=== PATIENT | female | born 1990 | race Caucasian/White ===

== ENCOUNTER 2020-11-09 16:10 | Inpatient (IN) ==
[2020-11-09] MEDS ORDERED: LORazepam 1 MG TAB PO STA (16:26)
--- NOTE | 2020-11-09 16:36 | Emergency Department Note ---
Impression & Plan Depression with suicidal ideation, Alcohol intoxication ED Provider Note NAME: ZEYAD CALLAWAY AGE: 30 SEX: F : 1990 ARRIVES VIA: Walk-In INFORMANT: Patient, ED PROVIDER(S): Keanu Andres DO CHIEF COMPLAINT: Anxiety HPI: The patient is a 30-year-old female who presented to the emergency department for mental health evaluation. The patient describes episodes of anxiety that she has been feeling over the course the last few weeks. She denies having any nausea or vomiting. She has had no cough or difficulty breathing. She states that she has had depression as well as suicidal ideation but is very vague about any specific plan. She denies having any recent overdose attempts. The patient states that she has been seen by her psychiatrist twice and most recently was started on propanolol for her anxiety. She states that otherwise she has been compliant with all of her outpatient medications. She states she has been admitted to the psychiatric hospital in the past for the symptoms but it was when she lived in [place]. She states that she has been picking at her skin especially on her lower legs and has been having significant difficulty sleeping. She states her symptoms are moderate to severe at this time. ROS: See above HPI for pertinent positives & negatives. A total of 10 systems reviewed and were otherwise negative. PAST MEDICAL HISTORY: See Below PAST SURGICAL HISTORY: See Below FAMILY HISTORY: See Below SOCIAL HISTORY: See Below HOME MEDICATIONS: See Below ALLERGIES: See Below VITALS: See Below PHYSICAL EXAMINATION: GENERAL: The patient is awake and alert. She is somewhat anxious appearing. She is tearful. EYES: The conjunctivae are clear. The pupils are round and reactive. EARS, NOSE, MOUTH AND THROAT: The nose is without any evidence of any deformity. NECK: The neck is nontender and supple. RESPIRATORY: Normal respiratory effort is noted there is no evidence of wheezing rhonchi or rales CARDIOVASCULAR: Tachycardic rate with regular rhythm was noted. There was no definite murmur. GASTROINTESTINAL: The abdomen is soft. Abdomen is nontender. MUSCULOSKELETAL/EXTREMITIES: There is no evidence of gross deformity full range of motion is noted in the hips and shoulders. SKIN: There is no obvious evidence of any rash. There are excoriations over the lower extremities consistent with skin picking. No signs of cellulitis or infection were noted. NEUROLOGIC: Patient is awake alert and oriented x3 strength is symmetric patellar reflexes are 2+ bilaterally PSYCH: The patient is awake and alert. She makes good eye contact for most the evaluation. She appears somewhat anxious and guarded. The patient is tearful at times. She admitting to suicidal ideation but no plan at this time. MEDICAL DECISION MAKING: The patient is a 30-year-old female who presented to the emergency department for a mental health evaluation. The patient was having significant anxiety as well as depression with suicidal ideation. The patient was reevaluated multiple times. She was unable to be medically cleared at this time because of a very elevated alcohol level. She was resting comfortably on reevaluation. She was treated with Ativan in the emergency department for anxiety. She will require formal mental health reevaluation when she is clinically not intoxicated. Otherwise the patient was medically cleared. The patient was signed out to Dr. Michelle change of shift. Please see her note for further disposition and overnight care. Triage Nursing notes reviewed. Prior medical records reviewed Vital Signs: reviewed and remarkable for tachycardia Differential diagnosis: Mood disorder, infection, hypoglycemia, electrolyte abnormalities, cardiac sources, intracerebral event, toxicologic, trauma, neurologic, as well as other pathologies. ER treatment provided: See below Diagnostics interpreted by me: ECG: none Laboratory studies: As stated above and show below. Imaging studies: See below Consultation(s): none Past Med/Surg History Medical History Acid reflux occasional Anxiety Asthma controlled Endometriosis Fibromyalgia Obesity Surgical History Abscess of pelvis s/p surgical drainage History of appendectomy History of cholecystectomy History of colonoscopy History of endometrial ablation History of esophagogastroduodenoscopy (EGD) Hx of laparoscopy x3 (for endometriosis) Hx of removal of ovary Hx of tonsillectomy [place] teeth extracted Family History Mother Narcolepsy Crohn's disease Hypertension Gallbladder disease Father Diabetes Anxiety Hypertension Family history of reaction to anesthesia SLOW TO WAKE UP/PONV Brother Anxiety Sister Anxiety Grandmother (Paternal) Breast cancer Aunt Breast cancer Grandfather (Maternal) Stroke Grandfather (Paternal) Heart disease Denies family history of Ovarian cancer Prostate cancer Lung cancer Colorectal cancer Social History Smoking Status: Never smoker Second Hand Exposure: Yes (MOTHER SMOKES/SISTER SMOKES OUTSIDE); Hx Alcohol Use: Yes Alcohol type: hard liquor Hx Substance Use: No Preferred Language: Mauritian Communication Ability: Effective Visual Impairment: Limited Hearing Ability: Normal Lining Layer Required: No Beliefs That Will Affect Care: None marital status: Single Current Living Situation: Family Current Living Situation Comment: SISTER AND KENDRICK current occupational status: unemployed Feels Safe at Home: Yes Childhood Exposure to Second-Hand Smoke: No caffeine: No Dental Care, Regularly: Yes Physical Activity Frequency: Does not Exercise Seatbelt Use: always Sunscreen Use: Yes Assistive Devices: None Allergies Allergies Allergy/AdvReac Type Severity Reaction Status Date / Time NSAIDS (Non-Steroidal Allergy hives, Verified 08/25/20 07:21 Anti-Inflamma swelling Home Meds Home Medications Medication Instructions Recorded Confirmed cyclobenzaprine 10 mg PO PRN 11/09/20 propranolol 10 mg PO TID 11/09/20 11/09/20 Results & Data (ED) Vital Signs Vital Signs - 24 hr 11/09/20 16:13 11/09/20 17:57 11/09/20 19:06 Temperature 36.7 C Temperature Source Temporal Artery Scan Pulse Rate 117 H Pulse Rate [Finger] 78 120 H Respiratory Rate 16 16 20 Respiratory Effort / Characteristics Non-Labored Spontaneous Respiratory Depth Normal Blood Pressure 133/89 Blood Pressure [Right Arm] 144/82 H 113/74 Blood Pressure Mean 103 Blood Pressure Mean [Right Arm] 102 87 Pulse Oximetry 96 96 99 Oxygen Delivery Method Room Air Sepsis Recent Fever Within 48 Hours No Sepsis New/Unexplained Change in Mental Status No Sepsis Action Taken by Nursing No Action Required 11/09/20 21:18 Temperature Temperature Source Pulse Rate Pulse Rate [Finger] 132 H Respiratory Rate 18 Respiratory Effort / Characteristics Respiratory Depth Blood Pressure Blood Pressure [Right Arm] 131/82 Blood Pressure Mean Blood Pressure Mean [Right Arm] 98 Pulse Oximetry 98 Oxygen Delivery Method Room Air Sepsis Recent Fever Within 48 Hours Sepsis New/Unexplained Change in Mental Status Sepsis Action Taken by [facility] Medications Current Medication List: was personally reviewed by me Laboratory Data Attestation: I reviewed the patient's lab results. Result diagrams: 11/09/20 16:55 11/09/20 16:55 Lab Results 11/09/20 11/09/20 11/09/20 Range/Units 16:55 16:55 16:55 WBC 8.46 (4.8-10.8) K/uL RBC 4.87 (4.2-5.4) M/uL Hgb 15.4 (12.0-16.0) g/dL Hct 43.4 (37-47) % MCV 89.1 (80-100) fL MCH 31.6 (25-34) pg MCHC 35.5 (32-36) g/dL RDW Std Deviation 42.5 (36.4-46.3) fL RDW Coeff of Piotr 13.0 (11.5-14.5) % Plt Count 382 (130-400) K/uL MPV 10.1 (7.4-10.4) fL Immature Gran % (Auto) 0.5 % Neut % (Auto) 34.8 % Lymph % (Auto) 55.6 % Delta % (Auto) 6.5 % Eos % (Auto) 1.7 % Baso % (Auto) 0.9 % Neut # (Auto) 2.95 (1.4-6.5) K/uL Lymph # (Auto) 4.70 H (1.2-3.4) K/uL Delta # (Auto) 0.55 (0.11-0.59) K/uL Eos # (Auto) 0.14 (0-0.5) K/uL Baso # (Auto) 0.08 (0-0.2) K/uL Immature Gran # (Auto) 0.04 H (0.00-0.02) K/uL Sodium 143 (136-145) mmol/L Potassium 3.6 (3.5-5.1) mmol/L Chloride 109 H (98-107) mmol/L Carbon Dioxide 26 (21-32) mmol/L Anion Gap 8.0 (3-11) BUN 4 L (7-18) mg/dl Creatinine 0.73 (0.6-1.2) mg/dl Est Cr Clr Drug Dosing 115.7 ml/min Est GFR ( Amer) 127.2 Est GFR (Non-Af Amer) 109.7 BUN/Creatinine Ratio 5.9 L (10-20) Glucose 106 H (70-99) mg/dl Calcium 9.2 (8.5-10.1) mg/dl Total Bilirubin 0.4 (0.2-1) mg/dl AST 314 H (15-37) U/L ALT 188 H (12-78) U/L Alkaline Phosphatase 114 (45-117) U/L Total Protein 8.3 H (6.4-8.2) gm/dl Albumin 4.2 (3.4-5.0) gm/dl Globulin 4.1 H (2.5-4.0) gm/dl Albumin/Globulin Ratio 1.0 (0.9-2) TSH 0.877 (0.300-4.500) uIu/ml Urine Color Urine Appearance (Clear) Urine pH (4.5-7.5) Ur Specific [place] (1.000-1.030) Urine Protein (Negative) Urine Glucose (UA) (Negative) Urine Ketones (Negative) Urine Blood (Negative) Urine Nitrite (Negative) Urine Bilirubin (Negative) Urine Urobilinogen (Negative) Ur Leukocyte Esterase (Negative) Urine RBC (0-4) /hpf Urine WBC (0-5) /hpf Ur Epithelial Cells (0-5) /lpf Urine Bacteria (Negative) Salicylates < 1.7 L (2.8-20) mg/dl Urine Opiates Screen (Neg) Ur Methadone, Qual (Neg) Acetaminophen < 2 L (10-30) ug/ml Urine Barbiturates (Neg) Ur Phencyclidine (PCP) (Neg) U Amphetamin/Meth Scrn (Neg) MDMA (Ecstasy) Screen (Neg) U Benzodiazepines Scrn (Neg) Ur Cocaine Metabolite (Neg) U Marijuana (THC) Screen (Neg) Ethyl Alcohol mg/dL (0-3) mg/dl 11/09/20 11/09/20 11/09/20 Range/Units 16:55 18:00 18:00 WBC (4.8-10.8) K/uL RBC (4.2-5.4) M/uL Hgb (12.0-16.0) g/dL Hct (37-47) % MCV (80-100) fL MCH (25-34) pg MCHC (32-36) g/dL RDW Std Deviation (36.4-46.3) fL RDW Coeff of Piotr (11.5-14.5) % Plt Count (130-400) K/uL MPV (7.4-10.4) fL Immature Gran % (Auto) % Neut % (Auto) % Lymph % (Auto) % Delta % (Auto) % Eos % (Auto) % Baso % (Auto) % Neut # (Auto) (1.4-6.5) K/uL Lymph # (Auto) (1.2-3.4) K/uL Delta # (Auto) (0.11-0.59) K/uL Eos # (Auto) (0-0.5) K/uL Baso # (Auto) (0-0.2) K/uL Immature Gran # (Auto) (0.00-0.02) K/uL Sodium (136-145) mmol/L Potassium (3.5-5.1) mmol/L Chloride (98-107) mmol/L Carbon Dioxide (21-32) mmol/L Anion Gap (3-11) BUN (7-18) mg/dl Creatinine (0.6-1.2) mg/dl Est Cr Clr Drug Dosing ml/min Est GFR ( Amer) Est GFR (Non-Af Amer) BUN/Creatinine Ratio (10-20) Glucose (70-99) mg/dl Calcium (8.5-10.1) mg/dl Total Bilirubin (0.2-1) mg/dl AST (15-37) U/L ALT (12-78) U/L Alkaline Phosphatase (45-117) U/L Total Protein (6.4-8.2) gm/dl Albumin (3.4-5.0) gm/dl Globulin (2.5-4.0) gm/dl Albumin/Globulin Ratio (0.9-2) TSH (0.300-4.500) uIu/ml Urine Color Yellow Urine Appearance Cloudy A (Clear) Urine pH 6.5 (4.5-7.5) Ur Specific [place] 1.008 (1.000-1.030) Urine Protein Negative (Negative) Urine Glucose (UA) Negative (Negative) Urine Ketones Negative (Negative) Urine Blood Negative (Negative) Urine Nitrite Negative (Negative) Urine Bilirubin Negative (Negative) Urine Urobilinogen Negative (Negative) Ur Leukocyte Esterase Negative (Negative) Urine RBC 0-4 (0-4) /hpf Urine WBC 10-30 H (0-5) /hpf Ur Epithelial Cells 20-30 H (0-5) /lpf Urine Bacteria 2+ H (Negative) Salicylates (2.8-20) mg/dl Urine Opiates Screen Neg (Neg) Ur Methadone, Qual Neg (Neg) Acetaminophen (10-30) ug/ml Urine Barbiturates Neg (Neg) Ur Phencyclidine (PCP) Neg (Neg) U Amphetamin/Meth Scrn Pos H (Neg) MDMA (Ecstasy) Screen Neg (Neg) U Benzodiazepines Scrn Neg (Neg) Ur Cocaine Metabolite Neg (Neg) U Marijuana (THC) Screen Neg (Neg) Ethyl Alcohol mg/dL 324.0 H (0-3) mg/dl Administered Medications Discontinued Medications Lorazepam (Lorazepam 1 Mg Tab) 1 mg PO NOW STA Stop: 11/09/20 16:27 Last Admin: 11/09/20 16:39 Dose: 1 mg Documented by: [id number] Discharge Plan Visit Data Chief Complaint: Mental Health Evaluation Stated Complaint: MENTAL HEALTH EVAL ED Provider: Keanu Andres Discharge Problem: Depression with suicidal ideation, Alcohol intoxication Patient Disposition: Still a Patient Forms Stand Alone Forms: [facility], Suicide Prevention Resources Prescriptions Prescriptions: No Action cyclobenzaprine 10 mg tablet 10 mg PO PRN (Reason: Pain) RF: 0 propranolol 10 mg tablet 10 mg PO TID RF: 0 Referrals Referrals: Darvin Rubin MD [Primary Care Provider] - Discharge Problem: Alcohol intoxication Qualifiers: Complication of substance-induced condition: with unspecified complication Qualified Code(s): F10.929 - Alcohol use, unspecified with intoxication, unspecified
[2020-11-09 17:08] LABS: Hematocrit (blood only) 43.4 % (37-47); Hemoglobin 15.4 g/dL (12.0-16.0); Mean Corpuscular Hemoglobin 31.6 pg (25-34); Mean Corpuscular Hgb Conc 35.5 g/dL (32-36); Mean Corpuscular Volume 89.1 fL (80-100); Mean Platelet Volume 10.1 fL (7.4-10.4); Platelet Count 382 K/uL (130-400); RDW Standard Deviation 42.5 fL (36.4-46.3); Red Blood Count 4.87 M/uL (4.2-5.4); White Blood Count 8.46 K/uL (4.8-10.8)
[2020-11-09 17:25] LABS: Albumin Level 4.2 gm/dl (3.4-5.0); BUN Creatinine Ratio 5.9 (10-20); Calcium 9.2 mg/dl (8.5-10.1); Creatinine Clr Calc Pharmacy 115.7 ml/min; Est GFR (African American) 127.2; Est GFR (Non-African American) 109.7; Potassium 3.6 mmol/L (3.5-5.1)
[2020-11-09 17:35] LABS: Basophils # (auto) 0.08 K/uL (0-0.2); Basophils % (auto) 0.9 %; Eosinophils # (auto) 0.14 K/uL (0-0.5); Eosinophils % (auto) 1.7 %; Immature Granulocytes # (auto) 0.04 K/uL (0.00-0.02); Immature Granulocytes % (auto) 0.5 %; Lymphocytes % (auto) 55.6 %; Monocytes # (auto) 0.55 K/uL (0.11-0.59); Monocytes % (auto) 6.5 %; Neutrophils # (auto) 2.95 K/uL (1.4-6.5); Neutrophils % (auto) 34.8 %
[2020-11-09 17:36] LABS: Bilirubin,Total 0.4 mg/dl (0.2-1); Globulin 4.1 gm/dl (2.5-4.0); Thyroid Stimulating Hormone 0.877 uIu/ml (0.300-4.500); Total Protein 8.3 gm/dl (6.4-8.2)
[2020-11-09 17:38] LABS: Acetaminophen < 2 ug/ml (10-30); Salicylate < 1.7 mg/dl (2.8-20)
[2020-11-09 18:36] LABS: Appearance Urine Cloudy (Clear); Bilirubin Urine Negative (Negative); Blood Urine Negative (Negative); Color Urine Yellow; Glucose Urine UA Negative (Negative); Ketones Urine Negative (Negative); Leukocyte Esterase Urine Negative (Negative); Nitrite Urine Negative (Negative); Protein Urine Negative (Negative); Specific Gravity Urine 1.008 (1.000-1.030); Urobilinogen Urine Negative (Negative); pH Urine 6.5 (4.5-7.5)
[2020-11-09 18:44] LABS: Amphetamines+Metham, Urine Pos (Neg); Barbiturates, Urine Neg (Neg); Benzodiazepine, Urine Neg (Neg); Cocaine, Urine Neg (Neg); MDMA (Ecstacy), Urine Neg (Neg); Methadone, Urine Neg (Neg); Opiate, Urine Neg (Neg); Phencyclidine, Urine Neg (Neg)
[2020-11-09 18:56] LABS: Epithelial Cell Urine 20-30 /lpf (0-5)
[2020-11-09 18:58] LABS: Bacteria Urine 2+ (Negative); RBC Urine 0-4 /hpf (0-4)
--- NOTE | 2020-11-09 23:51 | Emergency Department Note ---
ED Visit Note This case was signed out to me at change of shift awaiting sobriety. The patient was evaluated by the ED psychiatric outpatient case manager. She is willing to admit herself voluntarily for inpatient psychiatric care. A Covid swab was obtained. The patient will be evaluated by staff from [facility] The case will be signed out to Dr. Guaman at change of shift awaiting disposition . : Alcohol intoxication Qualifiers: Complication of substance-induced condition: with unspecified complication Qualified Code(s): F10.929 - Alcohol use, unspecified with intoxication, unspecified
--- NOTE | 2020-11-10 10:07 | Emergency Department Note ---
ED Visit Note Patient was signed out to me medically cleared. Resting comfortably in the ER and was admitted shortly thereafter to [address] . : Alcohol intoxication Qualifiers: Complication of substance-induced condition: with unspecified complication Qualified Code(s): F10.929 - Alcohol use, unspecified with intoxication, unspecified
[2020-11-10] MEDS ORDERED: hydrOXYzine HCl 25 MG TAB PO PRN (16:26)
[2020-11-10] MEDS ORDERED: SODIUM CHLORIDE 0.65% NA SOLN 45 ML (OCEAN) PRN (16:26)
[2020-11-10] MEDS ORDERED: ACETAMINOPHEN 325 MG TAB PO PRN (16:26)
[2020-11-10] MEDS ORDERED: ALUMINUM/MAGNESIUM SUSP 30 ML UDC PO PRN (16:26)
[2020-11-10] MEDS ORDERED: MAGNESIUM HYDROXIDE SUSP 30 ML UDC PO PRN (16:26)
[2020-11-10] MEDS: hydrOXYzine HCl 25 MG TAB PO PRN (16:38)
[2020-11-10] MEDS ORDERED: OLANZAPINE 2.5 MG TAB PO ONE (17:00)
[2020-11-10] MEDS ORDERED: LORazepam 1 MG TAB PO PRN (17:01)
--- NOTE | 2020-11-10 17:48 | History & Physical ---
Date of Service November 10, 2020 Impression / Recommendations Impression This 30-year-old woman was admitted following evaluation in the emergency department for depression, anxiety, and mounting thoughts of suicide. Although the patient reports a long history of symptoms of depression and anxiety, dating back to her teenage years, her symptoms were exacerbated after she underwent a total abdominal hysterectomy in August 2020 advanced endometriosis and bilateral ovarian cysts. Her report is that she was not placed on hormone replacement for the first 2 months following surgery and, within this context, she noticed increased emotional lability, mood irritability, worsening d epression, panic episodes, and worst of all for the patient, mounting anxiety with substantial difficulty regulating her mood and coping with even routine stressors. Unfortunately, the patient has been using alcohol consumption as a way of attempting to manage her anxiety, although she freely notes that she is aware that his not effective and is "definitely not the right thing to do." She seems somewhat reluctant to identify her use quantity apart from saying that she typically drinks to the point of satiety, and admits that her use may include "4 or 5" drinks in the evenings, approximately 2, but may be 3 times a week, when she is not responsible for helping to care for her infant niece. The patient notes that she has never been a "daily drinker," but does feel that her use of alcohol has contributed to her current problems. She reports there is no other history of drug/alcohol misuse. She reports a family history of mood disorders and, specifically, reports that both her brother and her sister have been diagnosed with bipolar disorderalthough, at least, the brothers diagnosis occurs within a cooccurring history of mood altering chemical substance abuse. She reports that there is no history of trauma and indicates that she is eager to move back to [place] in order to be close to her family (siblings and her parents all of whom live locally.) Additional factors that may complicate the treatment of this patient is the fact that she reports that she has tried to "just about every" selective serotonin reuptake inhibitor, and also reports that she has had a trial of Effexorwhich she spontaneously correctly identifies as an SNRIwithout benefit and, with significant adverse effects. Her outpatient psychiatrist has tried to help with the patient's anxiety by prescribing propranolol. The patient reports that she has a variable history of Zyprexa, but her outpatient psychiatrist, Dr. Narvaez, has indicated that she would prefer to try other medications first because of her concern about metabolic syndrome associated with olanzapine, within the context of the patient's body index and recent total hysterectomy. As best I can tell, the patient's primary complaint has been and remains a persistent difficulty regulating her mood and modulating emotional reactivity under stress. A perhaps telling example that the patient gives is that she can "work [herself] up into a frenzy" when she is in the process of doing routine things, such as attempting to place a carry out order over the phone or schedule a routine appointment. Because the patient's symptoms of depression reportedly include initial, intermittent and terminal insomnia, and because she has not tried mirtazapine, the plan is for the patient to begin mirtazapine 15 mg at bedtime (both for depression and sleep). Material risks of mirtazapine, including but not limited to weight gain, have been reviewed with the patient. She indicates understanding and says that for her it is more important that she improved psychiatrically. We are also beginning olanzapine 2.5 mg twice a day standing dose, and will titrate as indicated. Material risks, including but not limited to metabolic syndrome, have been reviewed with the patient. She indicates understanding and reports that she has a past history of taking olanzapine without adverse effects. Because of the patient's history of panic, lorazepam has been ordered 1 mg every 6 hours as needed panic. This medication should not be used for routine anxiety and, instead, is intended purely for panic and only for short-term use. (1) Depression with suicidal ideation: 11/10/2020. -The patient has been admitted to the [facility] inpatient psychiatric unit. She has been referred to and is being actively encouraged to participate in individual, group, recreational, and as appropriate, family therapy. -The patient is being closely monitored on suicide precautions. -There will be an emphasis on helping the patient develop her individual coping strategies and improving her relaxation techniques. -We will begin mirtazapine 15 mg at bedtime for depression and for sleep. This medication may be titrated as indicated. Material risks and anticipated benefits of mirtazapine were reviewed with the patient, she has several questions and indicated understanding. -We will also begin olanzapine 2.5 mg twice a day and titrate this medication as indicated. Patient reports that she has a favorable history of responding to olanzapine, although she cannot recall the previous dose. Material risks, including but not limited to a detailed description of metabolic syndrome, were reviewed with the patient. The patient notes that she has previously been made aware of the side effects of olanzapine and feels comfortable taking it, despite the known risks. -Patient notes that she feels that her biggest problem has been regulating her mood. She does not meet criteria for efra or hypomania, despite a family history of bipolar disorder. Instead, her mood alterations within the context of recurrent depression seem to be related to difficulty coping with stressors and situational problems. For that reason, we have offered the patient a trial of lamotrigine and will begin at 25 mg a day, starting tomorrow. Material risks and anticipated benefits of lamotrigine have been reviewed with the patient and she has indicated understanding. The patient will be monitored for the development of a rash and is aware of the potential for Saldana-Filippo syndrome. Present on Admission?: Yes (2) Anxiety: 11/10/2020. -The patient describes a long history of generalized anxiety. In fact, she says that she feels that her anxiety is contributing to her depression, rather than the other way around. She tells us that she cannot feel generally anxious, even if not feeling depressed and indicates, therefore, that anxiety in her case is independent of depression, although anxious distress certainly is part of her depression. -We will begin olanzapine 2.5 mg twice a day both for mood stabilization and for anxiety management. Olanzapine may also have some antidepressant effects in this case, at least based on the patient's reported past history. Present on Admission?: Yes (3) Alcohol abuse: 11/10/2020. -The patient freely acknowledges that her use of alcohol has been excessive and she also admits that she has attempted to use alcohol as a way of managing her anxiety. She does have insight into the fact that alcohol has actually made her anxiety depression worse over time, although she is aware of a temporary relief of anxiety when she is drinking. The patient explains, "then it is worse the next day, and I swear and when to not have any more alcohol, but then a few days later I will get very nervous and start drinking again." -There is no history of alcohol withdrawal, and the patient's reported history is that she drinks to the point of intoxication approximately twice or may be as many as 3 times a week, but does not drink at other times. We are monitoring her, but I do not expect alcohol withdrawal symptoms. -Alcohol abuse counseling will be part of the patient's current treatment. -The patient has been advised that with her psychiatric medications it is essential that she maintain abstinence from alcohol and other drugs of abuse. Present on Admission?: Yes Inventory Assets Strengths: Intelligent. Supportive family. Motivated to recovery. Needs: Improved mood with improved mood regulation.. Resolution of suicidality. Risk Factors Assessment Recurrent mood disorder. Alcohol abuse. Suicidal ruminations. Male: No : Yes Do You Have Access To A Gun?: No Health Problems: Yes Mental Health Diagnoses: Yes Substance Use Disorders: Yes Previous Attempt: No Family History of Suicide: No Previous Psychiatric Hospitalization: Yes Hopelessness: No Smoker: No Protective Factors Assessment Mu-Ism Beliefs: No (Patient reports that she was raised as a Adventist, but is not currently re) : No Responsible for Young Children: Yes Employed: Yes ([employer]) Stable Relationships: Yes Supportive Family: Yes Good Rapport with Provider: Yes Absence of Any Risk Factors Above: No Psychiatric History Identifying Data ZEYAD CALLAWAY is a 30-year-old F who currently lives in in [place], [place] with her sister and her infant niece. The patient has a history of recurrent major depression, generalized anxiety, and panic disorder without agoraphobia. She was admitted on 11/10/20 09:59 on a 201 voluntary agreement for worsening depression and intrusive suicidal and progressively worsening i deations Chief Complaint "Anxiety and depression". History of Present Illness The patient is a 30-year-old female who presented to the emergency department on the day of admission for a mental health evaluation. The patient's report is that she has a long history of depression, dating back to her teenage years as well as a history of a psychiatric hospitalization for depression approximately 2 years ago in the [facility]. In August 2020 the patient underwent a total abdominal hysterectomy at the age of 30 for what she describes as advanced endometriosis as well as bilateral and highly painful ovarian cysts. Subsequent to the hysterectomy, the patient was not placed on any hormone replacements for roughly 2 months and notes that she is currently working with a sheet metal worker helper to stabilize her hormone levels through hormone replacements. Within this context, the patient has noted increased anxiety, worsening feelings of depression, periodic panic attacks, and increased difficulty regulating her mood, even when under but many people would consider to be mild stressorsjust s uch as simply attempting to place a food order at a restaurant. The patient symptoms of depression include depressed mood, crying spells, initial and intermittent insomnia with water resource consultant awakening, anhedonia, apathy, anergia, anxious distress, poor concentration, emotional lability, and intrusive thoughts of suicide that, for the past several weeks, have been worsening. She acknowledges that she has had thoughts of taking an overdose, but, at the same time, feels that she can reliably contract for safety in the hospital. The patient notes that her panic attacks are unrelated to agoraphobia, and can occur at any time, but are more likely to occur when she is feeling under stress or time constraints. Symptoms of panic in this patient reportedly include feelings of impending doom, hyperventilation, tachycardia, chest tightness, and paresthesias (fingers primarily). The patient reports that she feels that her anxiety symptoms are perhaps the dominant symptom that, in her estimation, may be substantially contributing to her depression, rather than the other way around. She is seeing a Dr. Hidalgo on an outpatient basis, and Dr. Narvaez has prescribed propranolol for her anxiety. The patient says that she feels that the propranolol has been of little benefit to her. She has tried and failed several selective serotonin reuptake inhibitors as well as at least 1 norepinephrine reuptake inhibitor because she is not able to tolerate the side effects, and, further, she reports that she has had genetic testing that indicates that she is perhaps more prone to difficulty with tolerating various antidepressant medications. The patient reports that she has never tried Viibryd, bupropion ("Wellbutrin"), Pristiq, or mirtazapine. She has tried hydroxyzine for anxiety and for panic, and notes that this "helps a little" but "does not help much." Complicating the clinical picture is the fact that the patient works at a [employer] and acknowledges that she has been using alcohol in an attempt to manage her anxiety. She has difficulty estimating her alcohol use quantity, and instead says that she typically drinks to the point of intoxication, but limits her use of alcohol to no more than 2 or 3 times a week. She has no history of alcohol withdrawal. She also reports that she does not use any other drug of abuse, apart from alcohol. The patient mentions that in the past it has been suggested that she might suffer from a somewhat atypical form of bipolar disorder. She notes that her brother and her sister both carry diagnoses of bipolar disorder, although at least her brothers diagnosis occurs within the context of a cooccurring history of substance abuse. She does not seem to have discrete episodes consistent with a diagnosis of a manic or hypomanic episode. Instead, she indicates that she typically is "reactive" to situations and circumstances, and may become happy and contented under certain circumstances, and depressed or highly distressed under other circumstances. Past Psychiatric History Previous Psych History: The patient reports that her symptoms of depression began during adolescence and have occurred intermittently throughout her adult life. As noted below, she has a history of 1 previous psychiatric hospitalization because of risk of suicide and depression. This hospitalization occurred approximately 2 years ago in [facility] where she was living at the time. She does not recall the name of the hospital. After returning to [place], she has been followed psychiatrically by Dr. Narvaez. The patient notes that she has been tried on multiple SSRIs and at least one SNRI, and describes her drug trial history is consisting of "trying just about every SSRI you can think of." She indicates that she has not been able to tolerate SSRIs nor has she been able to tolerate SNRIs, and, in addition, neither seem to have been effective. She does report, however, a favorable response to Zyprexa in the past, although she cannot recall the dose. She has not taken atypical antidepressant medication such as mirtazapine or bupropion. Buspirone has been tried and has not been effective, according to the patient. Current Psychiatric Diagnosis: bipolar Outpatient Services: See above Previous Psych Admissions: 1 previous admission. See above Do You Have Access To A Gun?: No History of Previous Suicide Attempt: No Past Medication Trials: Multiple SSRIs and at least one SNRI. Favorable response to Zyprexa in the past. See above. Past Head Trauma/Neuro History History of Concussion/Seizure: No Allergies Allergy/AdvReac Type Severity Reaction Status Date / Time NSAIDS (Non-Steroidal Allergy hives, Verified 08/25/20 07:21 Anti-Inflamma swelling Home Medications Medication Instructions Recorded Confirmed Type cyclobenzaprine 10 mg PO PRN 11/09/20 History propranolol 10 mg PO TID 11/09/20 11/09/20 History Family History Family History of: Alcoholism/Drug Abuse (Brother) and Bipolar (Brother and sister) Family Mental Health History Comment: No family history of suicide attempts. Alcohol History Hx of Alcohol Use Over the Past 12 Months: Yes (reports drinking 2 or 3 times a week.) AUDIT Total Score: 8 Smoking Use Have You Smoked or Used Tobacco Products in the Last 30 Days: No Smoking Status: Never smoker Substance History Hx of Prescription Med Misuse Over the Past 12 Months: No Hx of Over the Counter Med Misuse Over the Past 12 Months: No Hx of Inhalent Misuse Over the Past 12 Months: No Hx of Organic Substance Use Over the Past 12 Months: No Hx of Illegal Substances/Street Drug Use Over Past 12 Months: No Problems as a Result of Past Substance Use: None Identified Personal History Living Arrangements: Home Living Arrangements Comments: The patient lives with her sister and infant niece. In addition to working full-time, the patient assist in the care of her infant niece. Born In: [facility]. Raised by both parents. Highest Grade Completed: Some College Highest Grade Completed Comment: Patient has completed 3 years of college and has is a goal returning to college in order to receive her bachelor's degree. 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 (The patient assures us that she does not consume alcohol while caring for her niece.)) Marital Status: Single Number Of Children: 0 Beliefs That Will Affect Care: None Current Legal Problems: No Hx Legal Problems: No Hx Traumatic Life Events: No Patient History Medical History Acid reflux occasional Anxiety Asthma controlled Endometriosis Fibromyalgia Obesity Surgical History Abscess of pelvis s/p surgical drainage History of appendectomy History of cholecystectomy History of colonoscopy History of endometrial ablation History of esophagogastroduodenoscopy (EGD) Hx of laparoscopy x3 (for endometriosis) Hx of removal of ovary Hx of tonsillectomy [place] teeth extracted Family History Mother Narcolepsy Crohn's disease Hypertension Gallbladder disease Father Diabetes Anxiety Hypertension Family history of reaction to anesthesia SLOW TO WAKE UP/PONV Brother Anxiety Sister Anxiety Grandmother (Paternal) Breast cancer Aunt Breast cancer Grandfather (Maternal) Stroke Grandfather (Paternal) Heart disease Denies family history of Ovarian cancer Prostate cancer Lung cancer Colorectal cancer Social History Smoking Status: Never smoker Second Hand Exposure: Yes (MOTHER SMOKES/SISTER SMOKES OUTSIDE); Hx Alcohol Use: Yes Alcohol type: hard liquor Hx Substance Use: No Preferred Language: Turkish Communication Ability: Effective Visual Impairment: Limited Hearing Ability: Normal Clinical Fellow Required: No Beliefs That Will Affect Care: None marital status: Single Current Living Situation: Family Current Living Situation Comment: SISTER RUBEN MARKS current occupational status: unemployed Feels Safe at Home: Yes Childhood Exposure to Second-Hand Smoke: No caffeine: No Dental Care, Regularly: Yes Physical Activity Frequency: Does not Exercise Seatbelt Use: always Sunscreen Use: Yes Assistive Devices: None Review of Systems Review of Systems: All systems reviewed & are unremarkable except as noted in HPI & below The admission physical examination and review of systems is completed by Keanu Andres DO of the emergency department has been reviewed and is excepted for purposes of medical clearance to the inpatient psychiatric unit. As part of the psychiatric assessment, at least 10 systems were reviewed with the patient. She does note a past history of asthma (as indicated by the emergency room review of systems), but the patient says that she has not had any asthma difficulties in a number of years and although at one time she had a rescue inhaler, she has not required any form of treatment for asthma for a number of years. Patient also complains of a history of fibromyalgia and uses cyclobenzaprine as an effective treatment. Physical Exam Psychiatric: Orientation: alert, oriented x 3 and cooperative Apperance: appropriately dressed, appropriately groomed and appeared stated age Eye Contact: + fair eye contact Motor Behavior: + tremor Speech: normal rate/rhythm/volume of speech Affect: + depressed affect and + anxious affect Mood: + depressed mood and + anxious mood Thought Process: goal directed thought process Thought Content: reality based without delusions Suicidal Thoughts: + reports suicidal thoughts Patient reports intrusive, persistent and worsening thoughts of suicide. These thoughts include taking an overdose. She contracts for safety convincingly in the hospital and reports that her primary goal is recovery. Homicidal Thoughts: denies homicidal thoughts Hallucinations: no auditory hallucinations and no visual hallucinations Cognition: recent memory grossly intact, remote memory grossly intact, attention grossly intact and language grossly intact Estimated Intelligence: + above average estimated intelligence Insight: good insight Judgement: + fair judgement Vital Signs (Past 24 Hours): Last Vital Signs Temp 36.7 C 11/10/20 11:46 Pulse 95 H 11/10/20 11:46 Resp 18 11/10/20 11:46 BP 135/82 11/10/20 11:46 Pulse Ox 99 11/10/20 10:19 Results & Data ([facility]) Laboratory Results Laboratory Results - last 24 hr 11/09/20 11/09/20 11/09/20 16:55 16:55 16:55 WBC 8.46 RBC 4.87 Hgb 15.4 Hct 43.4 MCV 89.1 MCH 31.6 MCHC 35.5 RDW Std Deviation 42.5 RDW Coeff of Piotr 13.0 Plt Count 382 MPV 10.1 Immature Gran % (Auto) 0.5 Neut % (Auto) 34.8 Lymph % (Auto) 55.6 [place] % (Auto) 6.5 Eos % (Auto) 1.7 Baso % (Auto) 0.9 Neut # (Auto) 2.95 Lymph # (Auto) 4.70 H [place] # (Auto) 0.55 Eos # (Auto) 0.14 Baso # (Auto) 0.08 Immature Gran # (Auto) 0.04 H Sodium 143 Potassium 3.6 Chloride 109 H Carbon Dioxide 26 Anion Gap 8.0 BUN 4 L Creatinine 0.73 Est Cr Clr Drug Dosing 115.7 Est GFR ( Amer) 127.2 Est GFR (Non-Af Amer) 109.7 BUN/Creatinine Ratio 5.9 L Glucose 106 H Calcium 9.2 Total Bilirubin 0.4 AST 314 H ALT 188 H Alkaline Phosphatase 114 Total Protein 8.3 H Albumin 4.2 Globulin 4.1 H Albumin/Globulin Ratio 1.0 TSH 0.877 Urine Color Urine Appearance Urine pH Ur Specific [place] Urine Protein Urine Glucose (UA) Urine Ketones Urine Blood Urine Nitrite Urine Bilirubin Urine Urobilinogen Ur Leukocyte Esterase Urine RBC Urine WBC Ur Epithelial Cells Urine Bacteria Salicylates < 1.7 L Urine Opiates Screen Ur Methadone, Qual Acetaminophen < 2 L Urine Barbiturates Ur Phencyclidine (PCP) U Amphetamines Confirm U Amphetamin/Meth Scrn U Methamphetamin Confrm MDMA (Ecstasy) Screen U Benzodiazepines Scrn Ur Cocaine Metabolite U Marijuana (THC) Screen Drug Screen Comment Ethyl Alcohol mg/dL COVID-19 Eval Order SARS-CoV-2, RNA, NAAT 11/09/20 11/09/20 11/09/20 16:55 18:00 18:00 WBC RBC Hgb Hct MCV MCH MCHC RDW Std Deviation RDW Coeff of Piotr Plt Count MPV Immature Gran % (Auto) Neut % (Auto) Lymph % (Auto) [place] % (Auto) Eos % (Auto) Baso % (Auto) Neut # (Auto) Lymph # (Auto) [place] # (Auto) Eos # (Auto) Baso # (Auto) Immature Gran # (Auto) Sodium Potassium Chloride Carbon Dioxide Anion Gap BUN Creatinine Est Cr Clr Drug Dosing Est GFR ( Amer) Est GFR (Non-Af Amer) BUN/Creatinine Ratio Glucose Calcium Total Bilirubin AST ALT Alkaline Phosphatase Total Protein Albumin Globulin Albumin/Globulin Ratio TSH Urine Color Yellow Urine Appearance Cloudy A Urine pH 6.5 Ur Specific [place] 1.008 Urine Protein Negative Urine Glucose (UA) Negative Urine Ketones Negative Urine Blood Negative Urine Nitrite Negative Urine Bilirubin Negative Urine Urobilinogen Negative Ur Leukocyte Esterase Negative Urine RBC 0-4 Urine WBC 10-30 H Ur Epithelial Cells 20-30 H Urine Bacteria 2+ H Salicylates Urine Opiates Screen Neg Ur Methadone, Qual Neg Acetaminophen Urine Barbiturates Neg Ur Phencyclidine (PCP) Neg U Amphetamines Confirm U Amphetamin/Meth Scrn Pos H U Methamphetamin Confrm MDMA (Ecstasy) Screen Neg U Benzodiazepines Scrn Neg Ur Cocaine Metabolite Neg U Marijuana (THC) Screen Neg Drug Screen Comment Ethyl Alcohol mg/dL 324.0 H COVID-19 Eval Order SARS-CoV-2, RNA, NAAT 11/09/20 11/10/20 11/10/20 18:00 06:00 06:00 WBC RBC Hgb Hct MCV MCH MCHC RDW Std Deviation RDW Coeff of Piotr Plt Count MPV Immature Gran % (Auto) Neut % (Auto) Lymph % (Auto) [place] % (Auto) Eos % (Auto) Baso % (Auto) Neut # (Auto) Lymph # (Auto) [place] # (Auto) Eos # (Auto) Baso # (Auto) Immature Gran # (Auto) Sodium Potassium Chloride Carbon Dioxide Anion Gap BUN Creatinine Est Cr Clr Drug Dosing Est GFR ( Amer) Est GFR (Non-Af Amer) BUN/Creatinine Ratio Glucose Calcium Total Bilirubin AST ALT Alkaline Phosphatase Total Protein Albumin Globulin Albumin/Globulin Ratio TSH Urine Color Urine Appearance Urine pH Ur Specific [place] Urine Protein Urine Glucose (UA) Urine Ketones Urine Blood Urine Nitrite Urine Bilirubin Urine Urobilinogen Ur Leukocyte Esterase Urine RBC Urine WBC Ur Epithelial Cells Urine Bacteria Salicylates Urine Opiates Screen Ur Methadone, Qual Acetaminophen Urine Barbiturates Ur Phencyclidine (PCP) U Amphetamines Confirm Pending U Amphetamin/Meth Scrn U Methamphetamin Confrm Pending MDMA (Ecstasy) Screen U Benzodiazepines Scrn Ur Cocaine Metabolite U Marijuana (THC) Screen Drug Screen Comment Pending Ethyl Alcohol mg/dL COVID-19 Eval [facility] SARS-CoV-2, RNA, NAAT NEGATIVE Current Inpatient Medications Current Inpatient Medications: Current Inpatient Medications Acetaminophen (Acetaminophen 325 Mg Tab) 650 mg PO Q4H PRN PRN Reason: Headache or Minor Fever Stop: 12/10/20 16:25 Al Hydrox/Mg Hydrox/Simethicone (Aluminum/Magnesium Susp 30 Ml Udc) 30 ml PO Q4H PRN PRN Reason: GI Upset Stop: 12/10/20 16:25 Hydroxyzine HCl (Hydroxyzine Hcl 25 Mg Tab) 50 mg PO HSZ PRN PRN Reason: Insomnia Stop: 12/10/20 16:25 Hydroxyzine HCl (Hydroxyzine Hcl 25 Mg Tab) 25 mg PO Q4H PRN PRN Reason: Anxiety Stop: 12/10/20 16:25 Last Admin: 11/10/20 16:38 Dose: 25 mg Documented by: Lorazepam (Lorazepam 1 Mg Tab) 1 mg PO Q6H PRN PRN Reason: Panic Attacl Stop: 12/10/20 17:00 Magnesium Hydroxide (Magnesium Hydroxide Susp 30 Ml Udc) 30 ml PO DAILY PRN PRN Reason: Constipation Stop: 12/10/20 16:25 Mirtazapine (Mirtazapine Tab 15 Mg Tab) 15 mg PO HS NAE Stop: 12/10/20 21:59 Olanzapine (Olanzapine 2.5 Mg Tab) 2.5 mg PO BID NAE Stop: 12/10/20 20:59 Olanzapine (Olanzapine 2.5 Mg Tab) 2.5 mg PO NOW ONE Stop: 11/10/20 17:01 Sodium Chloride (Sodium Chloride 0.65% Na Soln 45 Ml ([place])) 1 - 2 sprays NA PRN PRN PRN Reason: Nasal Dryness/Congestion Stop: 12/10/20 16:25
[2020-11-10] MEDS: OLANZAPINE 2.5 MG TAB PO SCH (20:53)
[2020-11-10] MEDS: MIRTAZAPINE TAB 15 MG TAB PO SCH (20:53)
--- NOTE | 2020-11-11 08:04 | Psychiatric Progress Note ---
Date of Service November 11, 2020 Impression / Recommendations Impression This 30-year-old woman admitted voluntarily for alcohol abuse, depression, anxiety, and thoughts of suicide. Although the patient reports a long history of symptoms of depression and anxiety, dating back to her teenage years, her symptoms were exacerbated after she underwent a total abdominal hysterectomy in August 2020 due to endometriosis and bilateral ovarian cysts. Her report is that she was not placed on hormone replacement for the first 2 months following surgery and, within this context, she noticed increased emotional lability, mood irritability, worsening depression, panic episodes, and worst of all for the patient, mounting anxiety with substantial difficulty regulating her mood and coping with even routine stressors. She increased her alcohol intake as a way to manage anxiety, drinking to intoxication 2-3 times a week. She has failed numerous antidepressant trials, but on admission agreed to trials of mirtazapine for depression and sleep, lamotrigine for mood stabilization, and olanzapine as she reported it was beneficial in the past. She is agreeing to a family meeting with her sister, and referral for outpatient dual diagnosis therapy. Inpatient treatment remains medically necessary due to the severity of symptoms and risk for suicide if discharged prematurely. (1) Depression with suicidal ideation: 11/10/2020. -The patient has been admitted to the [facility] inpatient psychiatric unit. She has been referred to and is being actively encouraged to participate in individual, group, recreational, and as appropriate, family therapy. -The patient is being closely monitored on suicide precautions. -There will be an emphasis on helping the patient develop her individual coping strategies and improving her relaxation techniques. -We will begin mirtazapine 15 mg at bedtime for depression and for sleep. This medication may be titrated as indicated. Material risks and anticipated benefits of mirtazapine were reviewed with the patient, she has several questions and indicated understanding. -We will also begin olanzapine 2.5 mg twice a day and titrate this medication as indicated. Patient reports that she has a favorable history of responding to olanzapine, although she cannot recall the previous dose. Material risks, including but not limited to a detailed description of metabolic syndrome, were reviewed with the patient. The patient notes that she has previously been made aware of the side effects of olanzapine and feels comfortable taking it, despite the known risks. -Patient notes that she feels that her biggest problem has been regulating her mood. She does not meet criteria for efra or hypomania, despite a family history of bipolar disorder. Instead, her mood alterations within the context of recurrent depression seem to be related to difficulty coping with stressors and situational problems. For that reason, we have offered the patient a trial of lamotrigine and will begin at 25 mg a day, starting tomorrow. Material risks and anticipated benefits of lamotrigine have been reviewed with the patient and she has indicated understanding. The patient will be monitored for the development of a rash and is aware of the potential for Saldana-Filippo syndrome. 11/11 -continue medications started on admission, monitor for response/side effects. Order fasting labs for monitoring on an atypical antipsychotic. -Continue group attendance and participation, work on healthy coping skills and discharge safety plan. Family meeting with sister. Referred to [facility] for dual diagnosis therapy. (2) Anxiety: 11/10/2020. -The patient describes a long history of generalized anxiety. In fact, she says that she feels that her anxiety is contributing to her depression, rather than the other way around. She tells us that she cannot feel generally anxious, even if not feeling depressed and indicates, therefore, that anxiety in her case is independent of depression, although anxious distress certainly is part of her depression. -We will begin olanzapine 2.5 mg twice a day both for mood stabilization and for anxiety management. Olanzapine may also have some antidepressant effects in this case, at least based on the patient's reported past history. 11/11 -continue to work on behavioral techniques for managing anxiety. She has hydroxyzine and lorazepam as needed for panic. (3) Alcohol abuse: 11/10/2020. -The patient freely acknowledges that her use of alcohol has been excessive and she also admits that she has attempted to use alcohol as a way of managing her anxiety. She does have insight into the fact that alcohol has actually made her anxiety depression worse over time, although she is aware of a temporary relief of anxiety when she is drinking. The patient explains, "then it is worse the next day, and I swear and when to not have any more alcohol, but then a few days later I will get very nervous and start drinking again." -There is no history of alcohol withdrawal, and the patient's reported history is that she drinks to the point of intoxication approximately twice or may be as many as 3 times a week, but does not drink at other times. We are monitoring her, but I do not expect alcohol withdrawal symptoms. -Alcohol abuse counseling will be part of the patient's current treatment. -The patient has been advised that with her psychiatric medications it is essential that she maintain abstinence from alcohol and other drugs of abuse. Inventory Assets Strengths: Intelligent. Supportive family. Motivated to recovery. Needs: Improved mood with improved mood regulation. Resolution of suicidality. Risk Factors Assessment Male: No : Yes Do You Have Access To A Gun?: No Health Problems: Yes Mental Health Diagnoses: Yes Substance Use Disorders: Yes Previous Attempt: No Family History of Suicide: No Previous Psychiatric Hospitalization: Yes Hopelessness: No Smoker: No Protective Factors Assessment Catholic Beliefs: No (Patient reports that she was raised as a [employer], but is not currently re) : No Responsible for Young Children: Yes Employed: Yes ([employer]) Stable Relationships: Yes Supportive Family: Yes Good Rapport with Provider: Yes Absence of Any Risk Factors Above: No Interval History Identifying Information ZEYAD CALLAWAY is a 30-year-old F who currently lives in in [place], [place] with her sister and her niece. The patient has a history of recurrent major depression, generalized anxiety, and panic disorder without agoraphobia. She was admitted on 11/10/20 09:59 on a 201 voluntary agreement for worsening depression and intrusive suicidal and progressively worsening ideations. Chief Complaint "I still feel pretty anxious". Review of Systems Sleep Information Total Hours of Sleep: 9.75 Sleep Comments: pt appeared to sleep 2.75 hrs during evening shift. pt on q-15 minute checks Meal Information Percent Meal Consumed - Dinner: 100 Subjective Subjective Patient was seen & assessed and interval progress reviewed with nursing and social work. Staff report she attended and participated in groups. On my assessment, she reports she slept well last night and mood is improved, but she still feels "pretty anxious." She is tolerating medications well, started several new medications yesterday. She denies SI and feels safe here. She is y[place]asta ling for a meeting with her sister and referral for dual diagnosis therapy. Physical Exam Psychiatric Orientation: alert and cooperative Apperance: appropriately dressed, appropriately groomed and appeared stated age scrub pants, tie dye tshirt, long hair wet from shower Eye Contact: + fair eye contact Motor Behavior: steady gait and station and no abnormal motor movements Speech: normal rate/rhythm/volume of speech Affect: + anxious affect, + constricted affect and mood congruent with affect Mood: + anxious mood Thought Process: goal directed thought process Thought Content: reality based without delusions Suicidal Thoughts: denies suicidal thoughts Homicidal Thoughts: denies homicidal thoughts Hallucinations: no auditory hallucinations Cognition: recent memory grossly intact, attention grossly intact and language grossly intact Insight: + fair insight Judgement: + fair judgement Vital Signs (Past 24 Hours) Last Vital Signs Temp 36.5 C 11/11/20 06:49 Pulse 87 11/11/20 06:50 Resp 16 11/11/20 06:49 BP 123/89 11/11/20 06:50 Pulse Ox 99 11/10/20 10:19 Results & Data ([facility]) Current Inpatient Medications Current Inpatient Medications: Current Inpatient Medications Acetaminophen (Acetaminophen 325 Mg Tab) 650 mg PO Q4H PRN PRN Reason: Headache or Minor Fever Stop: 12/10/20 16:25 Al Hydrox/Mg Hydrox/Simethicone (Aluminum/Magnesium Susp 30 Ml Udc) 30 ml PO Q4H PRN PRN Reason: GI Upset Stop: 12/10/20 16:25 Hydroxyzine HCl (Hydroxyzine Hcl 25 Mg Tab) 50 mg PO HSZ PRN PRN Reason: Insomnia Stop: 12/10/20 16:25 Hydroxyzine HCl (Hydroxyzine Hcl 25 Mg Tab) 25 mg PO Q4H PRN PRN Reason: Anxiety Stop: 12/10/20 16:25 Last Admin: 11/10/20 16:38 Dose: 25 mg Documented by: Lamotrigine (Lamotrigine 25 Mg Tab) 25 mg PO QAM NAE Stop: 12/11/20 08:59 Lorazepam (Lorazepam 1 Mg Tab) 1 mg PO Q6H PRN PRN Reason: Panic AttacK Stop: 12/10/20 17:00 Magnesium Hydroxide (Magnesium Hydroxide Susp 30 Ml Udc) 30 ml PO DAILY PRN PRN Reason: Constipation Stop: 12/10/20 16:25 Mirtazapine (Mirtazapine Tab 15 Mg Tab) 15 mg PO HS NAE Stop: 12/10/20 21:59 Last Admin: 11/10/20 20:53 Dose: 15 mg Documented by: Olanzapine (Olanzapine 2.5 Mg Tab) 2.5 mg PO BID NAE Stop: 12/10/20 20:59 Last Admin: 11/10/20 20:53 Dose: 2.5 mg Documented by: Sodium Chloride (Sodium Chloride 0.65% Na Soln 45 Ml ([place])) 1 - 2 sprays NA PRN PRN PRN Reason: Nasal Dryness/Congestion Stop: 12/10/20 16:25 Mental Health & Subst Abuse Tx Therapist Name of Therapist: Dr. Narvaez Lathe Tender Name of Lathe Tender: N/A Post Discharge Appointments Primary Care Physician Name Of Family Doctor: Dr. Rubin
[2020-11-11] MEDS: lamoTRIgine 25 MG TAB PO SCH (08:39)
[2020-11-11] MEDS: OLANZAPINE 2.5 MG TAB PO SCH ×2 (08:39→20:52)
[2020-11-11] MEDS: MIRTAZAPINE TAB 15 MG TAB PO SCH (20:53)
--- NOTE | 2020-11-12 06:57 | Psychiatric Progress Note ---
Date of Service November 12, 2020 Impression / Recommendations Impression This 30-year-old woman admitted voluntarily for alcohol abuse, depression, anxiety, and thoughts of suicide. Although the patient reports a long history of symptoms of depression and anxiety, dating back to her teenage years, her symptoms were exacerbated after she underwent a total abdominal hysterectomy in August 2020 due to endometriosis and bilateral ovarian cysts. Her report is that she was not placed on hormone replacement for the first 2 months following surgery and, within this context, she noticed increased emotional lability, mood irritability, worsening depression, panic episodes, and worst of all for the patient, mounting anxiety with substantial difficulty regulating her mood and coping with even routine stressors. She increased her alcohol intake as a way to manage anxiety, drinking to intoxication 2-3 times a week. She has failed numerous antidepressant trials, but on admission agreed to trials of mirtazapine for depression and sleep, lamotrigine for mood stabilization, and olanzapine as she reported it was beneficial in the past. She is agreeing to a family meeting with her sister, and referral for outpatient dual diagnosis therapy. Inpatient treatment remains medically necessary due to the severity of symptoms and risk for suicide if discharged prematurely. (1) Depression with suicidal ideation: 11/10/2020. -The patient has been admitted to the [facility] inpatient psychiatric unit. She has been referred to and is being actively encouraged to participate in individual, group, recreational, and as appropriate, family therapy. -The patient is being closely monitored on suicide precautions. -There will be an emphasis on helping the patient develop her individual coping strategies and improving her relaxation techniques. -We will begin mirtazapine 15 mg at bedtime for depression and for sleep. This medication may be titrated as indicated. Material risks and anticipated benefits of mirtazapine were reviewed with the patient, she has several questions and indicated understanding. -We will also begin olanzapine 2.5 mg twice a day and titrate this medication as indicated. Patient reports that she has a favorable history of responding to olanzapine, although she cannot recall the previous dose. Material risks, including but not limited to a detailed description of metabolic syndrome, were reviewed with the patient. The patient notes that she has previously been made aware of the side effects of olanzapine and feels comfortable taking it, despite the known risks. -Patient notes that she feels that her biggest problem has been regulating her mood. She does not meet criteria for efra or hypomania, despite a family history of bipolar disorder. Instead, her mood alterations within the context of recurrent depression seem to be related to difficulty coping with stressors and situational problems. For that reason, we have offered the patient a trial of lamotrigine and will begin at 25 mg a day, starting tomorrow. Material risks and anticipated benefits of lamotrigine have been reviewed with the patient and she has indicated understanding. The patient will be monitored for the development of a rash and is aware of the potential for Saldana-Filippo syndrome. 11/11 -continue medications started on admission, monitor for response/side effects. Order fasting labs for monitoring on an atypical antipsychotic. -Continue group attendance and participation, work on healthy coping skills and discharge safety plan. Family meeting with sister. Referred to [facility] for dual diagnosis therapy. 11/12 -continue current treatment plan, family meeting and referrals for outpatient treatment tomorrow. (2) Anxiety: 11/10/2020. -The patient describes a long history of generalized anxiety. In fact, she says that she feels that her anxiety is contributing to her depression, rather than the other way around. She tells us that she cannot feel generally anxious, even if not feeling depressed and indicates, therefore, that anxiety in her case is independent of depression, although anxious distress certainly is part of her depression. -We will begin olanzapine 2.5 mg twice a day both for mood stabilization and for anxiety management. Olanzapine may also have some antidepressant effects in this case, at least based on the patient's reported past history. 11/11 -continue to work on behavioral techniques for managing anxiety. She has hydroxyzine and lorazepam as needed for panic. (3) Alcohol abuse: 11/10/2020. -The patient freely acknowledges that her use of alcohol has been excessive and she also admits that she has attempted to use alcohol as a way of managing her anxiety. She does have insight into the fact that alcohol has actually made her anxiety depression worse over time, although she is aware of a temporary relief of anxiety when she is drinking. The patient explains, "then it is worse the next day, and I swear and when to not have any more alcohol, but then a few days later I will get very nervous and start drinking again." -There is no history of alcohol withdrawal, and the patient's reported history is that she drinks to the point of intoxication approximately twice or may be as many as 3 times a week, but does not drink at other times. We are monitoring her, but I do not expect alcohol withdrawal symptoms. -Alcohol abuse counseling will be part of the patient's current treatment. -The patient has been advised that with her psychiatric medications it is essential that she maintain abstinence from alcohol and other drugs of abuse. Inventory Assets Strengths: Intelligent. Supportive family. Motivated to recovery. Needs: Improved mood with improved mood regulation. Resolution of suicidality. Risk Factors Assessment Male: No : Yes Do You Have Access To A Gun?: No Health Problems: Yes Mental Health Diagnoses: Yes Substance Use Disorders: Yes Previous Attempt: No Family History of Suicide: No Previous Psychiatric Hospitalization: Yes Hopelessness: No Smoker: No Protective Factors Assessment Synagogue Beliefs: No (Patient reports that she was raised as a Anabaptism, but is not currently re) : No Responsible for Young Children: Yes Employed: Yes ([employer]) Stable Relationships: Yes Supportive Family: Yes Good Rapport with Provider: Yes Absence of Any Risk Factors Above: No Interval History Identifying Information ZEYAD CALLAWAY is a 30-year-old F who currently lives in in [place], [place] with her sister and her niece. The patient has a history of recurrent major depression, generalized anxiety, and panic disorder without agoraphobia. She was admitted on 11/10/20 09:59 on a 201 voluntary agreement for worsening depression and intrusive suicidal and progressively worsening ideations. Chief Complaint "Really tired right now". Review of Systems Sleep Information Total Hours of Sleep: 8 Sleep Comments: pt given vistaril per rn. pt on q-15 minute checks Meal Information Percent Meal Consumed - Breakfast: 75 Percent Meal Consumed - Lunch: 100 Percent Meal Consumed - Dinner: 95 Subjective Subjective Patient was seen & assessed and interval progress reviewed with nursing and social work. Staff report she has been attending and participating in groups, working on recovery protocol, and agreed to a referral to [facility]. She rated her mood a 3/10 and described it as "anxious." On my assessment, she was awoken from sleep midmorning, stating that although she slept well last night, she st ill feels very tired. She states today she was "really anxious," but anxiety was reduced this morning. Mood is "pretty good," and states anxiety has been the biggest problem for her. It is typically episodic, denies triggers, feels easily overwhelmed by it. She does think medication is helping, and is hopeful that she can be discharged after her family meeting with her sister tomorrow. She remains willing for referrals for outpatient treatment. Physical Exam Psychiatric Orientation: cooperative Awoken from sleep, appears tired Apperance: appropriately groomed Eye Contact: + fair eye contact Motor Behavior: no abnormal motor movements Speech: normal rate/rhythm/volume of speech Tired, but anxious Mood: + anxious mood Thought Process: goal directed thought process Thought Content: reality based without delusions Suicidal Thoughts: denies suicidal thoughts Homicidal Thoughts: denies homicidal thoughts Hallucinations: no auditory hallucinations Cognition: recent memory grossly intact, attention grossly intact and language grossly intact Estimated Intelligence: average estimated intelligence Insight: + fair insight Judgement: + fair judgement Vital Signs (Past 24 Hours) Last Vital Signs Temp 36.4 C L 11/12/20 06:41 Pulse 79 11/12/20 06:41 Resp 16 11/12/20 06:41 BP 123/84 11/12/20 06:41 Pulse Ox 99 11/10/20 10:19 Results & Data ([facility]) Current Inpatient Medications Current Inpatient Medications: Current Inpatient Medications Acetaminophen (Acetaminophen 325 Mg Tab) 650 mg PO Q4H PRN PRN Reason: Headache or Minor Fever Stop: 12/10/20 16:25 Al Hydrox/Mg Hydrox/Simethicone (Aluminum/Magnesium Susp 30 Ml Udc) 30 ml PO Q4H PRN PRN Reason: GI Upset Stop: 12/10/20 16:25 Hydroxyzine HCl (Hydroxyzine Hcl 25 Mg Tab) 50 mg PO HSZ PRN PRN Reason: Insomnia Stop: 12/10/20 16:25 Last Admin: 11/11/20 20:53 Dose: 50 mg Documented by: Hydroxyzine HCl (Hydroxyzine Hcl 25 Mg Tab) 25 mg PO Q4H PRN PRN Reason: Anxiety Stop: 12/10/20 16:25 Last Admin: 11/10/20 16:38 Dose: 25 mg Documented by: Lamotrigine (Lamotrigine 25 Mg Tab) 25 mg PO QAM NAE Stop: 12/11/20 08:59 Last Admin: 11/11/20 08:39 Dose: 25 mg Documented by: Lorazepam (Lorazepam 1 Mg Tab) 1 mg PO Q6H PRN PRN Reason: Panic AttacK Stop: 12/10/20 17:00 Magnesium Hydroxide (Magnesium Hydroxide Susp 30 Ml Udc) 30 ml PO DAILY PRN PRN Reason: Constipation Stop: 12/10/20 16:25 Mirtazapine (Mirtazapine Tab 15 Mg Tab) 15 mg PO HS NAE Stop: 12/10/20 21:59 Last Admin: 11/11/20 20:53 Dose: 15 mg Documented by: Olanzapine (Olanzapine 2.5 Mg Tab) 2.5 mg PO BID NAE Stop: 12/10/20 20:59 Last Admin: 11/11/20 20:52 Dose: 2.5 mg Documented by: Sodium Chloride (Sodium Chloride 0.65% Na Soln 45 Ml ([place])) 1 - 2 sprays NA PRN PRN PRN Reason: Nasal Dryness/Congestion Stop: 12/10/20 16:25 Mental Health & Subst Abuse Tx Therapist Name of Therapist: Open to getting one, will refer to [facility] Teacher Name of Theology Teacher: N/A Post Discharge Appointments Primary Care Physician Name Of Family Doctor: Dr. Ortez [facility] [place]
[2020-11-12 08:52] LABS: Glucose Fasting 106 mg/dl (70-99)
[2020-11-12] MEDS: lamoTRIgine 25 MG TAB PO SCH (08:55)
[2020-11-12] MEDS: OLANZAPINE 2.5 MG TAB PO SCH ×2 (08:55→21:36)
[2020-11-12 08:58] LABS: Chol HDL Ratio 5; Cholesterol 253 mg/dl (0-200); HDL Cholesterol 55 mg/dl; LDL Cholesterol Calculated 155 mg/dl; Triglycerides 213 mg/dl (0-150); VLDL Cholesterol 43 mg/dl
[2020-11-12] MEDS: MIRTAZAPINE TAB 15 MG TAB PO SCH (21:37)
[2020-11-12] MEDS: hydrOXYzine HCl 25 MG TAB PO PRN (21:38)
[2020-11-13 03:18] LABS: Amphetamine Urine, Confirm 1490 ng/mL (<250); Methamphetamine, Ur Confirm NEGATIVE ng/mL (<250)
[2020-11-13] MEDS: lamoTRIgine 25 MG TAB PO SCH (08:55)
[2020-11-13] MEDS: OLANZAPINE 2.5 MG TAB PO SCH (08:55)
--- NOTE | 2020-11-13 10:03 | Discharge Summary ---
Date of Service November 13, 2020 History of Present Illness The patient is a 30-year-old female who presented to the emergency department on the day of admission for a mental health evaluation. The patient's report is that she has a long history of depression, dating back to her teenage years as well as a history of a psychiatric hospitalization for depression approximately 2 years ago in the [facility]. In August 2020 the patient underwent a total abdominal hysterectomy at the age of 30 for what she describes as advanced endometriosis as well as bilateral and highly painful ovarian cysts. Subsequent to the hysterectomy, the patient was not placed on any hormone replacements for roughly 2 months and notes that she is currently working with a head baker to stabilize her hormone levels through hormone replacements. Within this context, the patient has noted increased anxiety, worsening feelings of depression, periodic panic attacks, and increased difficulty regulating her mood, even when under but many people would consider to be mild stressorsjust such as simply attempting to place a food order at a restaurant. The patient symptoms of depression include depressed mood, crying spells, initial and intermittent insomnia with job analyst awakening, anhedonia, apathy, anergia, anxious distress, poor concentration, emotional lability, and intrusive thoughts of suicide that, for the past several weeks, have been worsening. She acknowledges that she has had thoughts of taking an overdose, but, at the same time, feels that she can reliably contract for safety in the hospital. The patient notes that her panic attacks are unrelated to agoraphobia, and can occur at any time, but are more likely to occur when she is feeling under stress or time constraints. Symptoms of panic in this patient reportedly include feelings of impending doom, hyperventilation, tachycardia, chest tightness, and paresthesias (fingers primarily). The patient reports that she feels that her anxiety symptoms are perhaps the dominant symptom that, in her estimation, may be substantially contributing to her depression, rather than the other way around. She is seeing a Dr. Hidalgo on an outpatient basis, and Dr. Narvaez has prescribed propranolol for her anxiety. The patient says that she feels that the propranolol has been of little benefit to her. She has tried and failed several selective serotonin reuptake inhibitors as well as at least 1 norepinephrine reuptake inhibitor because she is not able to tolerate the side effects, and, further, she reports that she has had genetic testing that indicates that she is perhaps more prone to difficulty with tolerating various antidepressant medications. The patient reports that she has never tried Viibryd, bupropion ("Wellbutrin"), Pristiq, or mirtazapine. She has tried hydroxyzine for anxiety and for panic, and notes that this "helps a little" but "does not help much." Complicating the clinical picture is the fact that the patient works at a [employer] and acknowledges that she has been using alcohol in an attempt to manage her anxiety. She has difficulty estimating her alcohol use quantity, and instead says that she typically drinks to the point of intoxication, but limits her use of alcohol to no more than 2 or 3 times a week. She has no history of alcohol withdrawal. She also reports that she does not use any other drug of abuse, apart from alcohol. The patient mentions that in the past it has been suggested that she might suffer from a somewhat atypical form of bipolar disorder. She notes that her brother and her sister both carry diagnoses of bipolar disorder, although at least her brothers diagnosis occurs within the context of a cooccurring history of substance abuse. She does not seem to have discrete episodes consistent with a diagnosis of a manic or hypomanic episode. Instead, she indicates that she typically is "reactive" to situations and circumstances, and may become happy and contented under certain circumstances, and depressed or highly distressed under other circumstances. Physical Exam Psychiatric Orientation: alert and cooperative Apperance: appropriately dressed, appropriately groomed and appeared stated age Eye Contact: good eye contact Motor Behavior: steady gait and station and no abnormal motor movements Speech: normal rate/rhythm/volume of speech Affect: euthymic affect and mood congruent with affect Mood: no depressed mood and no anxious mood Thought Process: goal directed thought process and linear/logical thought process Thought Content: reality based without delusions Suicidal Thoughts: denies suicidal thoughts Homicidal Thoughts: denies homicidal thoughts Hallucinations: no auditory hallucinations Cognition: recent memory grossly intact, attention grossly intact and language grossly intact Estimated Intelligence: average estimated intelligence Insight: good insight Judgement: good judgement Vital Signs (Past 24 Hours) Last Vital Signs Temp 36.6 C 11/13/20 06:44 Pulse 80 11/13/20 06:45 Resp 16 11/13/20 06:44 BP 130/91 11/13/20 06:45 Pulse Ox 99 11/10/20 10:19 Principal Diagnosis Major depressive disorder, recurrent, severe without psychosis Generalized anxiety disorder Alcohol use disorder Psychiatric Data Patient was hospitalized for 3 days. On admission, propanolol was discontinued and she was started on lamotrigine, mirtazapine, and olanzapine. Mood and anxiety improved over the course of hospitalization, she was able to work on coping strategies for anxiety, participate in groups and therapy, completed her discharge safety plan. Sleep improved, and she consistently denied suicidal thoughts. She was placed on recovery protocol and reported motivation to stop drinking. She had a family meeting with the social contact worker and her sister scheduled for the day of discharge, and was referred for outpatient therapy at [facility]. Day of Discharge Assessment Patient reports mood has improved and anxiety is significantly reduced, saying she has been feeling "really relaxed," enjoying socializing with peers, as they watched several movies yesterday which she enjoyed. She is attending and participating in groups and finding them helpful, working on coping strategies for anxiety. Denies SI and safety concerns, requesting discharge today after family meeting. Reviewed her FLP and glucose, which are elevated. She would like to work on improving her diet as notes it is not good. Father has h/o diabetes, but she is unsure if HLD runs in her family. She would like to continue the olanzapine for now as feels it is the most helpful medication to calm her down acutely, while titrating the lamotrigine, with a plan to take it for a few months and then taper off once more stable. We again reviewed the risks and side effects with this medication, including weight gain and metabolic syndrome. She expressed understanding, and stated that right now she feels it is more important for her to stabilize psychiatrically. She asked about her diagnoses, reviewed them and she asked about the difference between bipolar and depression, and reviewed this in detail. She reports episodes of "wanting to democrat more" with increased drinking, and racing thoughts which are constant and due to anxiety, discussed that this does not meet criteria for efra or hypomania, but ongoing monitoring will be important as she attains sobriety. Discharge safety plan is scheduled with her sister for this afternoon, after which she is requesting discharge. Her mother is coming to stay with her and her sister to provide extra support. Transition of Care Transition Of Care Record: was reviewed with the patient Advance Directives Advance Directives Information Provided: Yes Advance Directives: No Mental Health Advance Directive: No Advance Directives on File: No Living Will: No Power of Offal Roller: No Advance Directives Reason:: Declines as Mental Health Visit. Risk Factors Assessment Risk factors mitigated by admission to the inpatient unit, use of medications to target mood and anxiety symptoms, education about her diagnoses and the recommended treatment, education about substance abuse and recommendations for abstinence, referral for outpatient therapy, coordination with outpatient psychiatrist, and family meeting with her sister. She is reporting improved mood and anxiety, consistently denying thoughts of harming herself or others, eating and sleeping well, and tending to ADLs independently. She is requesting discharge, and as she is no longer at acute risk of harm to herself, can be managed as an outpatient at this time. She does not endorse risk factors indicating elevated risk of harm to others. Male: No : Yes Do You Have Access To A Gun?: No Health Problems: Yes Mental Health Diagnoses: Yes Substance Use Disorders: Yes Previous Attempt: No Family History of Suicide: No Previous Psychiatric Hospitalization: Yes Hopelessness: No Smoker: No Protective Factors Assessment Advent Beliefs: No (Patient reports that she was raised as a Confucianist, but is not currently re) : No Responsible for Young Children: Yes Employed: Yes ([employer]) Stable Relationships: Yes Supportive Family: Yes Good Rapport with Provider: Yes Absence of Any Risk Factors Above: No Tobacco Cessation at Discharge Tobacco Cessation Medication Prescribed at Discharge: Not Applicable/Non-Smoker Total Time Total Time Spent: Greater Than 30 Minutes Total Time Includes: Examination of the patient, Discharge Planning and Medication Reconciliation Discharge Data Lab Results 11/09/20 11/09/20 11/09/20 16:55 16:55 16:55 WBC 8.46 RBC 4.87 Hgb 15.4 Hct 43.4 MCV 89.1 MCH 31.6 MCHC 35.5 RDW Std Deviation 42.5 RDW Coeff of Piotr 13.0 Plt Count 382 MPV 10.1 Immature Gran % (Auto) 0.5 Neut % (Auto) 34.8 Lymph % (Auto) 55.6 [place] % (Auto) 6.5 Eos % (Auto) 1.7 Baso % (Auto) 0.9 Neut # (Auto) 2.95 Lymph # (Auto) 4.70 H [place] # (Auto) 0.55 Eos # (Auto) 0.14 Baso # (Auto) 0.08 Immature Gran # (Auto) 0.04 H Sodium 143 Potassium 3.6 Chloride 109 H Carbon Dioxide 26 Anion Gap 8.0 BUN 4 L Creatinine 0.73 Est Cr Clr Drug Dosing 115.7 Est GFR ( Amer) 127.2 Est GFR (Non-Af Amer) 109.7 BUN/Creatinine Ratio 5.9 L Glucose 106 H Fasting Glucose Calcium 9.2 Total Bilirubin 0.4 AST 314 H ALT 188 H Alkaline Phosphatase 114 Total Protein 8.3 H Albumin 4.2 Globulin 4.1 H Albumin/Globulin Ratio 1.0 Triglycerides Cholesterol LDL Cholesterol, Calc VLDL Cholesterol, Calc HDL Cholesterol Cholesterol/HDL Ratio TSH 0.877 Urine Color Urine Appearance Urine pH Ur Specific [place] Urine Protein Urine Glucose (UA) Urine Ketones Urine Blood Urine Nitrite Urine Bilirubin Urine Urobilinogen Ur Leukocyte Esterase Urine RBC Urine WBC Ur Epithelial Cells Urine Bacteria Salicylates < 1.7 L Urine Opiates Screen Ur Methadone, Qual Acetaminophen < 2 L Urine Barbiturates Ur Phencyclidine (PCP) U Amphetamines Confirm U Amphetamin/Meth Scrn U Methamphetamin Confrm MDMA (Ecstasy) Screen U Benzodiazepines Scrn Ur Cocaine Metabolite U Marijuana (THC) Screen Drug Screen Comment Ethyl Alcohol mg/dL COVID-19 Eval Order SARS-CoV-2, RNA, NAAT 11/09/20 11/09/20 11/09/20 16:55 18:00 18:00 WBC RBC Hgb Hct MCV MCH MCHC RDW Std Deviation RDW Coeff of Piotr Plt Count MPV Immature Gran % (Auto) Neut % (Auto) Lymph % (Auto) [place] % (Auto) Eos % (Auto) Baso % (Auto) Neut # (Auto) Lymph # (Auto) [place] # (Auto) Eos # (Auto) Baso # (Auto) Immature Gran # (Auto) Sodium Potassium Chloride Carbon Dioxide Anion Gap BUN Creatinine Est Cr Clr Drug Dosing Est GFR ( Amer) Est GFR (Non-Af Amer) BUN/Creatinine Ratio Glucose Fasting Glucose Calcium Total Bilirubin AST ALT Alkaline Phosphatase Total Protein Albumin Globulin Albumin/Globulin Ratio Triglycerides Cholesterol LDL Cholesterol, Calc VLDL Cholesterol, Calc HDL Cholesterol Cholesterol/HDL Ratio TSH Urine Color Yellow Urine Appearance Cloudy A Urine pH 6.5 Ur Specific [place] 1.008 Urine Protein Negative Urine Glucose (UA) Negative Urine Ketones Negative Urine Blood Negative Urine Nitrite Negative Urine Bilirubin Negative Urine Urobilinogen Negative Ur Leukocyte Esterase Negative Urine RBC 0-4 Urine WBC 10-30 H Ur Epithelial Cells 20-30 H Urine Bacteria 2+ H Salicylates Urine Opiates Screen Neg Ur Methadone, Qual Neg Acetaminophen Urine Barbiturates Neg Ur Phencyclidine (PCP) Neg U Amphetamines Confirm U Amphetamin/Meth Scrn Pos H U Methamphetamin Confrm MDMA (Ecstasy) Screen Neg U Benzodiazepines Scrn Neg Ur Cocaine Metabolite Neg U Marijuana (THC) Screen Neg Drug Screen Comment Ethyl Alcohol mg/dL 324.0 H COVID-19 Eval Order SARS-CoV-2, RNA, NAAT 11/09/20 11/10/20 11/10/20 18:00 06:00 06:00 WBC RBC Hgb Hct MCV MCH MCHC RDW Std Deviation RDW Coeff of Piotr Plt Count MPV Immature Gran % (Auto) Neut % (Auto) Lymph % (Auto) [place] % (Auto) Eos % (Auto) Baso % (Auto) Neut # (Auto) Lymph # (Auto) [place] # (Auto) Eos # (Auto) Baso # (Auto) Immature Gran # (Auto) Sodium Potassium Chloride Carbon Dioxide Anion Gap BUN Creatinine Est Cr Clr Drug Dosing Est GFR ( Amer) Est GFR (Non-Af Amer) BUN/Creatinine Ratio Glucose Fasting Glucose Calcium Total Bilirubin AST ALT Alkaline Phosphatase Total Protein Albumin Globulin Albumin/Globulin Ratio Triglycerides Cholesterol LDL Cholesterol, Calc VLDL Cholesterol, Calc HDL Cholesterol Cholesterol/HDL Ratio TSH Urine Color Urine Appearance Urine pH Ur Specific [place] Urine Protein Urine Glucose (UA) Urine Ketones Urine Blood Urine Nitrite Urine Bilirubin Urine Urobilinogen Ur Leukocyte Esterase Urine RBC Urine WBC Ur Epithelial Cells Urine Bacteria Salicylates Urine Opiates Screen Ur Methadone, Qual Acetaminophen Urine Barbiturates Ur Phencyclidine (PCP) U Amphetamines Confirm 1490 H U Amphetamin/Meth Scrn U Methamphetamin Confrm NEGATIVE MDMA (Ecstasy) Screen U Benzodiazepines Scrn Ur Cocaine Metabolite U Marijuana (THC) Screen Drug Screen Comment SEE NOTE Ethyl Alcohol mg/dL COVID-19 Eval [facility] SARS-CoV-2, RNA, NAAT NEGATIVE 11/12/20 08:03 WBC RBC Hgb Hct MCV MCH MCHC RDW Std Deviation RDW Coeff of Piotr Plt Count MPV Immature Gran % (Auto) Neut % (Auto) Lymph % (Auto) [place] % (Auto) Eos % (Auto) Baso % (Auto) Neut # (Auto) Lymph # (Auto) [place] # (Auto) Eos # (Auto) Baso # (Auto) Immature Gran # (Auto) Sodium Potassium Chloride Carbon Dioxide Anion Gap BUN Creatinine Est Cr Clr Drug Dosing Est GFR ( Amer) Est GFR (Non-Af Amer) BUN/Creatinine Ratio Glucose Fasting Glucose 106 H Calcium Total Bilirubin AST ALT Alkaline Phosphatase Total Protein Albumin Globulin Albumin/Globulin Ratio Triglycerides 213 H Cholesterol 253 H LDL Cholesterol, Calc 155 VLDL Cholesterol, Calc 43 HDL Cholesterol 55 Cholesterol/HDL Ratio 5 TSH Urine Color Urine Appearance Urine pH Ur Specific [place] Urine Protein Urine Glucose (UA) Urine Ketones Urine Blood Urine Nitrite Urine Bilirubin Urine Urobilinogen Ur Leukocyte Esterase Urine RBC Urine WBC Ur Epithelial Cells Urine Bacteria Salicylates Urine Opiates Screen Ur Methadone, Qual Acetaminophen Urine Barbiturates Ur Phencyclidine (PCP) U Amphetamines Confirm U Amphetamin/Meth Scrn U Methamphetamin Confrm MDMA (Ecstasy) Screen U Benzodiazepines Scrn Ur Cocaine Metabolite U Marijuana (THC) Screen Drug Screen Comment Ethyl Alcohol mg/dL COVID-19 Eval Order SARS-CoV-2, RNA, NAAT Hospital Course (1) Depression with suicidal ideation: 11/10/2020. -The patient has been admitted to the [facility] inpatient psychiatric unit. She has been referred to and is being actively encouraged to participate in individual, group, recreational, and as appropriate, family therapy. -The patient is being closely monitored on suicide precautions. -There will be an emphasis on helping the patient develop her individual coping strategies and improving her relaxation techniques. -We will begin mirtazapine 15 mg at bedtime for depression and for sleep. This medication may be titrated as indicated. Material risks and anticipated benefits of mirtazapine were reviewed with the patient, she has several questions and indicated understanding. -We will also begin olanzapine 2.5 mg twice a day and titrate this medication as indicated. Patient reports that she has a favorable history of responding to olanzapine, although she cannot recall the previous dose. Material risks, including but not limited to a detailed description of metabolic syndrome, were reviewed with the patient. The patient notes that she has previously been made aware of the side effects of olanzapine and feels comfortable taking it, despite the known risks. -Patient notes that she feels that her biggest problem has been regulating her mood. She does not meet criteria for efra or hypomania, despite a family history of bipolar disorder. Instead, her mood alterations within the context of recurrent depression seem to be related to difficulty coping with stressors and situational problems. For that reason, we have offered the patient a trial of lamotrigine and will begin at 25 mg a day, starting tomorrow. Material risks and anticipated benefits of lamotrigine have been reviewed with the patient and she has indicated understanding. The patient will be monitored for the development of a rash and is aware of the potential for Saldana-Filippo syndrome. 11/11 -continue medications started on admission, monitor for response/side effects. Order fasting labs for monitoring on an atypical antipsychotic. -Continue group attendance and participation, work on healthy coping skills and discharge safety plan. Family meeting with sister. Referred to [facility] for dual diagnosis therapy. 11/12 -continue current treatment plan, family meeting and referrals for outpatient treatment tomorrow. (2) Anxiety: 11/10/2020. -The patient describes a long history of generalized anxiety. In fact, she says that she feels that her anxiety is contributing to her depression, rather than the other way around. She tells us that she cannot feel generally anxious, even if not feeling depressed and indicates, therefore, that anxiety in her case is independent of depression, although anxious distress certainly is part of her depression. -We will begin olanzapine 2.5 mg twice a day both for mood stabilization and for anxiety management. Olanzapine may also have some antidepressant effects in this case, at least based on the patient's reported past history. 11/11 -continue to work on behavioral techniques for managing anxiety. She has hydroxyzine and lorazepam as needed for panic. (3) Alcohol abuse: 11/10/2020. -The patient freely acknowledges that her use of alcohol has been excessive and she also admits that she has attempted to use alcohol as a way of managing her anxiety. She does have insight into the fact that alcohol has actually made her anxiety depression worse over time, although she is aware of a temporary relief of anxiety when she is drinking. The patient explains, "then it is worse the next day, and I swear and when to not have any more alcohol, but then a few days later I will get very nervous and start drinking again." -There is no history of alcohol withdrawal, and the patient's reported history is that she drinks to the point of intoxication approximately twice or may be as many as 3 times a week, but does not drink at other times. We are monitoring her, but I do not expect alcohol withdrawal symptoms. -Alcohol abuse counseling will be part of the patient's current treatment. -The patient has been advised that with her psychiatric medications it is essential that she maintain abstinence from alcohol and other drugs of abuse. Mental Health & Subst Abuse Tx Psychiatrist Name of Psychiatrist: Dr. Narvaez at [facility] Date of Appointment with Psychiatrist: 11/28/20 Time of Appointment with Psychiatrist: 8:00am Therapist Name of Therapist: Katja Mandarin Speaking Nanny Name of Mandarin Speaking Nanny: N/A Post Discharge Appointments Primary Care Physician Name Of Family Doctor: Dr. Ortez [facility] Date of Appointment with PCP: 11/20/20 Time of Appointment with PCP: 10:45am Smoking Cessation Counseling Tobacco Cessation Medication Prescribed at Discharge: Not Applicable/Non-Smoker Discharge Plan Discharge Items Patient Disposition: Home - Self-Care Reason For Visit: Depression Discharge Diagnosis: Depression, anxiety, alcohol use disorder Activity: Per Instructions section Non-emergency contact: Psychiatrist and Therapist Call non-emergency contact if: you have any medication questions and your symptoms worsen Follow-up/Referrals: Darvin Rubin MD [Primary Care Provider] - Diet: Regular Addtl Attending Provider Instructions: SPECIAL CARE INSTRUCTIONS: 1. Follow through with your scheduled aftercare appointments. If unable to keep an appointment, please call to reschedule. 2. Take your medication only as prescribed. Medication should not be changed or stopped without the approval of your doctor. In the event of worsening symptoms or concerns about side effects, contact your doctor immediately. 3. Utilize new healthy coping skills, anger management skills, and stress management skills learned during your hospitalization. Journal feelings and process them with a support person. Identify stressors or situations that may result in relapse, deterioration or inappropriate behaviors and develop a plan to deal with those issues. 4. If your coping skills are ineffective and you are in crisis, contact your outpatient providers for direction. If unable to reach your providers, please call the [facility] CRISIS LINE AT , go to the [facility] walk-in center at [address], [address], [place], or go to the closest Emergency Room. 5. Avoid alcohol and un-prescribed drugs. 6. You have been provided with the Mental Health Advance Directives Pamphlet for your review. AFTERCARE APPOINTMENTS: * Please call your insurance company prior to your scheduled appointment to confirm your aftercare providers are covered. Take your insurance information to your ap pointments. WHO TO CALL AND WHEN: Medical Emergencies: For questions or emergencies related to your hospital stay, please contact the Inpatient Behavioral Health Unit at [phone]. A protective clothing issuer is on-call 07/04 for the Behavioral Health Unit for emergencies At any time you feel your situation is an emergency, you may also call 911 immediately. Pending Studies at Discharge: No Stand-Alone Forms: [facility], Smoking Cessation Medications and DC Order Prescriptions: New lamotrigine [Lamictal] 25 mg Tablet 25 mg PO QAM Qty: 45 RF: 0 mirtazapine 15 mg Tablet 15 mg PO HS Qty: 30 RF: 0 olanzapine 2.5 mg Tablet 2.5 mg PO BID Qty: 60 RF: 0 Continued cyclobenzaprine 10 mg tablet 10 mg PO PRN (Reason: Pain) RF: 0 Discontinued propranolol 10 mg tablet 10 mg PO TID RF: 0 Discharge Orders: Discharge Order (Routine); Ordered 11/13/20 Ordered By: Inez Valdez Admission Data Admit Date/Time: 11/10/20 09:59 Attending Provider: Miles Guzman Admit Provider: Miles Guzman Primary Care Provider: Darvin Rubin Coding Level of Care Code 07598 D/C day mgmt > 30 min Diagnoses Depression with suicidal ideation F32.9; R45.851 Anxiety F41.9 Alcohol abuse F10.10
== END 2020-11-13 14:10 | disposition home or self-care (01) | DRG 885 ==
LOC: ED 16:10 → 3S 11-10 09:59

== ENCOUNTER 2022-02-16 22:37 | Inpatient (IN) ==
[2022-02-16] MEDS ORDERED: MULTI-VITAMIN INFUSION 10 ML, THIAMINE HCL 100 MG, FOLIC ACID 1 MG in SODIUM CHLORIDE 0... IV ONE (23:05)
[2022-02-16] MEDS ORDERED: LORazepam 2 MG/1 ML VIAL IV STA (23:07)
--- NOTE | 2022-02-16 23:14 | Emergency Department Note ---
History of Present Illness General Chief complaint: Detox Request Stated complaint: rehab alcohol detox, emotional Time Seen by Provider: 02/16/22 22:51 History of Present Illness This 31-year-old presents to the ER complaining of alcohol intoxication requesting detox Location: Generalized Quality: Intoxicated Severity: Moderate Duration: Ongoing Timing: Ongoing Context: Patient would like to go to rehab for alcohol abuse and came in Modifying factors: better with nothing; worse with nothing patient states she drinks vodka more days than not. No history of alcohol withdrawal seizures or tremors. Patient states she would like to go to detox. She last drank just before coming here. Patient denies chest pain, dyspnea, drug use, tobacco abuse. Home Medications Medication Instructions Recorded Confirmed Type estradiol 0.05 mg/24 hr semiweekly 1 patch TOPICAL 2XWK 07/19/21 02/16/22 History transdermal patch acetaminophen 500 mg tablet 500 mg PO Q6H PRN 01/10/22 02/16/22 History cyclobenzaprine 5 mg tablet 5 mg PO BID PRN 01/10/22 02/16/22 History desvenlafaxine succinate 100 mg 100 mg PO QAM 01/10/22 02/16/22 History tablet,extended release 24 hr gabapentin 600 mg tablet 900 mg PO TID 01/10/22 02/16/22 History trazodone 50 mg tablet 25 - 300 mg PO HS PRN 02/16/22 02/16/22 History Allergies Allergy/AdvReac Type Severity Reaction Status Date / Time NSAIDS (Non-Steroidal Allergy Intermediate hives, Verified 02/16/22 23:24 Anti-Inflamma swelling Past Med/Surg History Medical History Acid reflux occasional Alcohol intoxication Anxiety Asthma controlled Endometriosis Fibromyalgia Obesity Surgical History Abscess of pelvis s/p surgical drainage History of appendectomy History of cholecystectomy History of colonoscopy History of endometrial ablation History of esophagogastroduodenoscopy (EGD) Hx of laparoscopy x3 (for endometriosis) Hx of removal of ovary Hx of tonsillectomy [place] teeth extracted Family History Mother Narcolepsy Crohn's disease Hypertension Gallbladder disease Father Diabetes Anxiety Hypertension Family history of reaction to anesthesia SLOW TO WAKE UP/PONV Brother Anxiety Sister Anxiety Grandmother (Paternal) Breast cancer Aunt Breast cancer Grandfather (Maternal) Stroke Grandfather (Paternal) Heart disease Denies family history of Ovarian cancer Prostate cancer Lung cancer Colorectal cancer Social History Smoking Status: Never smoker Second Hand Exposure: Yes (MOTHER SMOKES/SISTER SMOKES OUTSIDE); Hx Alcohol Use: Yes Alcohol type: hard liquor Hx Substance Use: No Preferred Language: Syriac Communication Ability: Effective Visual Impairment: Limited Hearing Ability: Normal Rn Clinical Required: No Beliefs That Will Affect Care: None marital status: Single Current Living Situation: Family Current Living Situation Comment: SISTER AND KENDRICK current occupational status: unemployed Feels Safe at Home: Yes Childhood Exposure to Second-Hand Smoke: No caffeine: No Dental Care, Regularly: Yes Physical Activity Frequency: Does not Exercise Seatbelt Use: always Sunscreen Use: Yes Assistive Devices: None Review of Systems A total of 10 systems reviewed and were otherwise negative Physical Exam Vital Signs Vital Signs - 24 hr 02/16/22 22:40 02/16/22 23:06 02/16/22 23:09 Temperature 36.6 C Temperature Source Temporal Artery Scan Pulse Rate 119 H 114 H 113 H Respiratory Rate 20 14 20 Blood Pressure 157/99 H 123/86 Blood Pressure Mean 118 98 Blood Pressure Position Sitting Pulse Oximetry 94 95 92 Oxygen Delivery Method Room Air Room Air Sepsis Recent Fever Within 48 Hours No Sepsis New/Unexplained Change in Mental Status N/A Sepsis Action Taken by Nursing No Action Required 02/16/22 23:30 02/17/22 00:00 02/17/22 00:30 Temperature Temperature Source Pulse Rate 112 H 111 H 113 H Respiratory Rate 19 19 21 Blood Pressure 123/98 103/67 108/85 Blood Pressure Mean 106 79 92 Blood Pressure Position Pulse Oximetry 95 94 96 Oxygen Delivery Method Sepsis Recent Fever Within 48 Hours Sepsis New/Unexplained Change in Mental Status Sepsis Action Taken by Nursing VITALS: Vitals are noted on the nurse's note and reviewed by myself. Vital signs reviewed. GENERAL: Pleasant tearful female with EtOH odor, in no acute distress, nondiaphoretic, well-developed well-nourished. SKIN: The skin was without rashes, erythema, edema, or bruising. There is no tenting of the skin. Capillary reflex less than 2 seconds. HEAD: Normocephalic atraumatic. EARS: External auditory canals clear, EYES: Pupils equal round and reactive to light and accommodation. Conjunctivae without injection, sclerae without icterus. Extraocular movements intact. NOSE: Patent, turbinates without inflammation or discharge. MOUTH: Mucous membranes moist. Pharynx without erythema or exudate. Uvula midline. Airway patent. Tongue does not deviate. NECK: Supple without nuchal rigidity. No lymphadenopathy. No thyromegaly. Cervical spine is nontender. No JVD. HEART: Mildly tachycardic rate and rhythm LUNGS: Clear to auscultation bilaterally without wheezes, rales or rhonchi. No retractions or accessory muscle use. ABDOMEN: Positive bowel sounds x 4. Normal tympanic percussion. Soft, nontender, without masses or organomegaly. De Jesus sign negative. No guarding or rebound tenderness. No CVA tenderness MUSCULOSKELETAL: No muscle atrophy, erythema, or edema noted. NEURO: Patient was alert and oriented to person place and time. Normal sensation to light and sharp touch. No focal neurological deficits. Course Administered Medications Discontinued Medications Sodium Chloride (Nss 1000ml) 1,000 mls @ 999 mls/hr IV .Q1H1M NAE Stop: 02/17/22 00:15 Last Infusion: 02/17/22 00:27 Dose: 0 mls/hr Documented by: [id number] Admin: 02/16/22 23:20 Dose: 999 mls/hr Documented by: [id number] Multivitamins 10 ml/ Thiamine HCl 100 mg/ Folic Acid 1 mg/Sodium Chloride 1,011.2 mls @ 1,011.2 mls/hr IV .Q1H ONE Stop: 02/17/22 00:04 Last Admin: 02/16/22 23:49 Dose: 1,011.2 mls/hr Documented by: [id number] Lorazepam (Lorazepam 2 Mg/1 Ml Vial) 1 mg IV NOW STA; Protocol Stop: 02/16/22 23:08 Last Admin: 02/16/22 23:20 Dose: 1 mg Documented by: [id number] Medical Decision Making Medical Records Attestation: I reviewed the patient's medical records. Home Medications Current Medication List: was personally reviewed by me Laboratory Data Attestation: I reviewed the patient's lab results. Result diagrams: 02/16/22 23:06 02/16/22 23:06 Lab Results 02/16/22 02/16/22 02/16/22 Range/Units 22:29 23:06 23:06 WBC (4.8-10.8) K/uL RBC (4.2-5.4) M/uL Hgb (12.0-16.0) g/dL Hct (37-47) % MCV (80-100) fL MCH (25-34) pg MCHC (32-36) g/dL RDW Std Deviation (36.4-46.3) fL RDW Coeff of Piotr (11.5-14.5) % Plt Count (130-400) K/uL MPV (7.4-10.4) fL Immature Gran % (Auto) % Neut % (Auto) % Lymph % (Auto) % Clarke % (Auto) % Eos % (Auto) % Baso % (Auto) % Neut # (Auto) (1.4-6.5) K/uL Lymph # (Auto) (1.2-3.4) K/uL Clarke # (Auto) (0.11-0.59) K/uL Eos # (Auto) (0-0.5) K/uL Baso # (Auto) (0-0.2) K/uL Immature Gran # (Auto) (0.00-0.02) K/uL Sodium 137 (136-145) mmol/L Potassium 3.8 (3.5-5.1) mmol/L Chloride 98 (98-107) mmol/L Carbon Dioxide 21 (21-32) mmol/L Anion Gap 18 H (3-11) BUN 4 L (6-23) mg/dl Creatinine 0.50 L (0.6-1.2) mg/dl Est Cr Clr Drug Dosing 172.5 ml/min Est GFR ( Amer) 148.4 ml/min Est GFR (Non-Af Amer) 128.1 ml/min BUN/Creatinine Ratio 8.0 L (10-20) Glucose 322 H* (70-99(Fasting)) mg/dl POC Glucose (70-99) mg/dl Calcium 9.9 (8.5-10.1) mg/dl Magnesium 2.0 (1.7-2.4) mg/dl Total Bilirubin 0.6 (0.2-1.0) mg/dl AST 351 H (13-39) U/L ALT 247 H (7-52) U/L Alkaline Phosphatase 121 H (34-104) U/L Total Creatine Kinase 76 (26-192) U/L Total Protein 7.8 (6.0-8.3) gm/dl Albumin 4.8 (3.4-5.0) gm/dl Globulin 3.0 (2.5-4.0) gm/dl Albumin/Globulin Ratio 1.6 (0.9-2) TSH (0.300-4.500) uIu/ml Urine Color Urine Appearance (Clear) Urine pH (4.5-7.5) Ur Specific [place] (1.000-1.030) Urine Protein (Negative) Urine Glucose (UA) (Negative) Urine Ketones (Negative) Urine Blood (Negative) Urine Nitrite (Negative) Urine Bilirubin (Negative) Urine Urobilinogen (Negative) Ur Leukocyte Esterase (Negative) Urine Opiates Screen (Neg) Ur Methadone, Qual (Neg) Urine Barbiturates (Neg) Ur Phencyclidine (PCP) (Neg) U Amphetamin/Meth Scrn (Neg) MDMA (Ecstasy) Screen (Neg) U Benzodiazepines Scrn (Neg) Ur Cocaine Metabolite (Neg) U Marijuana (THC) Screen (Neg) Ethyl Alcohol mg/dL 245.4 H (<10.0) mg/dl SARS-CoV-2, RNA, NAAT NEGATIVE (NEGATIVE) 02/16/22 02/16/22 02/16/22 Range/Units 23:06 23:06 23:06 WBC 14.04 H (4.8-10.8) K/uL RBC 4.40 (4.2-5.4) M/uL Hgb 14.6 (12.0-16.0) g/dL Hct 41.6 (37-47) % MCV 94.5 (80-100) fL MCH 33.2 (25-34) pg MCHC 35.1 (32-36) g/dL RDW Std Deviation 46.4 H (36.4-46.3) fL RDW Coeff of Piotr 13.3 (11.5-14.5) % Plt Count 404 H (130-400) K/uL MPV 10.2 (7.4-10.4) fL Immature Gran % (Auto) 0.5 % Neut % (Auto) 52.6 % Lymph % (Auto) 36.9 % Clarke % (Auto) 8.5 % Eos % (Auto) 1.1 % Baso % (Auto) 0.4 % Neut # (Auto) 7.39 H (1.4-6.5) K/uL Lymph # (Auto) 5.18 H (1.2-3.4) K/uL Clarke # (Auto) 1.20 H (0.11-0.59) K/uL Eos # (Auto) 0.15 (0-0.5) K/uL Baso # (Auto) 0.05 (0-0.2) K/uL Immature Gran # (Auto) 0.07 H (0.00-0.02) K/uL Sodium (136-145) mmol/L Potassium (3.5-5.1) mmol/L Chloride (98-107) mmol/L Carbon Dioxide (21-32) mmol/L Anion Gap (3-11) BUN (6-23) mg/dl Creatinine (0.6-1.2) mg/dl Est Cr Clr Drug Dosing ml/min Est GFR ( Amer) ml/min Est GFR (Non-Af Amer) ml/min BUN/Creatinine Ratio (10-20) Glucose (70-99(Fasting)) mg/dl POC Glucose (70-99) mg/dl Calcium (8.5-10.1) mg/dl Magnesium (1.7-2.4) mg/dl Total Bilirubin (0.2-1.0) mg/dl AST (13-39) U/L ALT (7-52) U/L Alkaline Phosphatase (34-104) U/L Total Creatine Kinase (26-192) U/L Total Protein (6.0-8.3) gm/dl Albumin (3.4-5.0) gm/dl Globulin (2.5-4.0) gm/dl Albumin/Globulin Ratio (0.9-2) TSH 4.036 (0.300-4.500) uIu/ml Urine Color Urine Appearance (Clear) Urine pH (4.5-7.5) Ur Specific [place] (1.000-1.030) Urine Protein (Negative) Urine Glucose (UA) (Negative) Urine Ketones (Negative) Urine Blood (Negative) Urine Nitrite (Negative) Urine Bilirubin (Negative) Urine Urobilinogen (Negative) Ur Leukocyte Esterase (Negative) Urine Opiates Screen Neg (Neg) Ur Methadone, Qual Neg (Neg) Urine Barbiturates Neg (Neg) Ur Phencyclidine (PCP) Neg (Neg) U Amphetamin/Meth Scrn Pos H (Neg) MDMA (Ecstasy) Screen Neg (Neg) U Benzodiazepines Scrn Neg (Neg) Ur Cocaine Metabolite Neg (Neg) U Marijuana (THC) Screen Neg (Neg) Ethyl Alcohol mg/dL (<10.0) mg/dl SARS-CoV-2, RNA, NAAT (NEGATIVE) 02/16/22 02/17/22 Range/Units 23:06 00:29 WBC (4.8-10.8) K/uL RBC (4.2-5.4) M/uL Hgb (12.0-16.0) g/dL Hct (37-47) % MCV (80-100) fL MCH (25-34) pg MCHC (32-36) g/dL RDW Std Deviation (36.4-46.3) fL RDW Coeff of Piotr (11.5-14.5) % Plt Count (130-400) K/uL MPV (7.4-10.4) fL Immature Gran % (Auto) % Neut % (Auto) % Lymph % (Auto) % Clarke % (Auto) % Eos % (Auto) % Baso % (Auto) % Neut # (Auto) (1.4-6.5) K/uL Lymph # (Auto) (1.2-3.4) K/uL Clarke # (Auto) (0.11-0.59) K/uL Eos # (Auto) (0-0.5) K/uL Baso # (Auto) (0-0.2) K/uL Immature Gran # (Auto) (0.00-0.02) K/uL Sodium (136-145) mmol/L Potassium (3.5-5.1) mmol/L Chloride (98-107) mmol/L Carbon Dioxide (21-32) mmol/L Anion Gap (3-11) BUN (6-23) mg/dl Creatinine (0.6-1.2) mg/dl Est Cr Clr Drug Dosing ml/min Est GFR ( Amer) ml/min Est GFR (Non-Af Amer) ml/min BUN/Creatinine Ratio (10-20) Glucose (70-99(Fasting)) mg/dl POC Glucose 245 H (70-99) mg/dl Calcium (8.5-10.1) mg/dl Magnesium (1.7-2.4) mg/dl Total Bilirubin (0.2-1.0) mg/dl AST (13-39) U/L ALT (7-52) U/L Alkaline Phosphatase (34-104) U/L Total Creatine Kinase (26-192) U/L Total Protein (6.0-8.3) gm/dl Albumin (3.4-5.0) gm/dl Globulin (2.5-4.0) gm/dl Albumin/Globulin Ratio (0.9-2) TSH (0.300-4.500) uIu/ml Urine Color Yellow Urine Appearance Clear (Clear) Urine pH 7.0 (4.5-7.5) Ur Specific [place] 1.004 (1.000-1.030) Urine Protein Negative (Negative) Urine Glucose (UA) 2+ H (Negative) Urine Ketones Negative (Negative) Urine Blood Negative (Negative) Urine Nitrite Negative (Negative) Urine Bilirubin Negative (Negative) Urine Urobilinogen Negative (Negative) Ur Leukocyte Esterase Negative (Negative) Urine Opiates Screen (Neg) Ur Methadone, Qual (Neg) Urine Barbiturates (Neg) Ur Phencyclidine (PCP) (Neg) U Amphetamin/Meth Scrn (Neg) MDMA (Ecstasy) Screen (Neg) U Benzodiazepines Scrn (Neg) Ur Cocaine Metabolite (Neg) U Marijuana (THC) Screen (Neg) Ethyl Alcohol mg/dL (<10.0) mg/dl SARS-CoV-2, RNA, NAAT (NEGATIVE) MDM Narrative Prior records/ancillary studies reviewed and summarized above. Nursing notes reviewed. Additional history obtained from friend. The patient's history was concerning for requesting alcohol detox. Differential diagnosis: Etiologies such as alcohol abuse, metabolic, infection, hypo/hyperglycemia, electrolyte abnormalities, cardiac sources, intracerebral event, toxicologic, neurologic, as well as others were entertained. Physical examination: As above. ER treatment provided: IV Lock An order was placed for continuous cardiac monitoring. The monitor shows a rate of 60-1 50 with a sinus rhythm. Ativan, IV fluids, banana bag On reassessment the patient felt better. Diagnostics interpretation by me: EKG ordered for alcohol abuse EKG: Normal sinus, occasional PVCs, rate of 111. Impression sinus tachycardia with frequent PVCs interpreted by myself I think arrhythmia is unlikely. EKG shows normal sinus rhythm with no interval abnormalities such as QT prolongation or WPW. There are no findings to suggest Brugada syndrome. Cardiac monitoring in the emergency department reveals no tachycardic or bradycardic dysrhythmia. Hypertrophic cardiomyopathy was considered but there are no clear historical elements pointing toward this. EKG is not suggestive. The QRS voltage is not extremely large and there are no suggestive Q waves. The labs revealed hyperglycemia without DKA. Elevated blood sugar Elevated LFTs most likely related to alcohol abuse Consultation: A consultation was placed with the hospitalist. The case was discussed and diagnostics were reviewed. The patient was evaluated in the ER for further treatment. Exam and history seem consistent with alcohol abuse. Patient is requesting detox. Medicine was consulted. She will be evaluated for admission. By the evaluation outlined above emergent etiologies such as infection, electrolyte abnormalities, cardiac sources, intracerebral event, neurologic, metabolic, as well as others were deemed relatively unlikely. The pt informed about the findings as listed above. All questions were answered and pleased with the treatment. The chart was completed utilizing [employer] Speech voice recognition software. Grammatical errors, random word insertions, pronoun errors, and incomplete sentences are an occassional consequence of this system due to software limitations, ambient noise, and hardware issues. Any formal questions or concerns about the content, text, or information contained within the body of this dictation should be directly addressed to the physician logistics assistant for clarification. Impression & Plan Alcoholic intoxication, Alcohol abuse, Diabetes mellitus with hyperglycemia Discharge Plan Visit Data Chief Complaint: Detox Request Stated Complaint: rehab alcohol detox, emotional ED Provider: Howard Brizuela ED Midlevel Provider: Trista Barkley Discharge Problem: Alcoholic intoxication, Alcohol abuse, Diabetes mellitus with hyperglycemia Patient Disposition: Admitted As Inpatient Condition: Good Forms Stand Alone Forms: My [facility], Suicide Prevention Resources Prescriptions Prescriptions: No Action estradiol 0.05 mg/24 hr patch semiweekly 1 patch topical [id number] RF: 0 trazodone 50 mg tablet 25 - 300 mg PO HS PRN (Reason: Sleep) RF: 0 gabapentin 600 mg tablet 900 mg PO TID RF: 0 acetaminophen 500 mg Tablet 500 mg PO Q6H PRN (Reason: Pain) RF: 0 cyclobenzaprine 5 mg tablet 5 mg PO BID PRN (Reason: Muscle Spasm) RF: 0 desvenlafaxine succinate 100 mg tablet extended release 24 hr 100 mg PO QAM RF: 0 Referrals Referrals: Simona Lake DO [Primary Care Provider] -
[2022-02-16] MEDS ORDERED: SODIUM CHLORIDE 0.9% 1000ML 1,000 ML IV SCH (23:15)
[2022-02-16 23:21] LABS: Appearance Urine Clear (Clear); Bilirubin Urine Negative (Negative); Blood Urine Negative (Negative); Color Urine Yellow; Glucose Urine UA 2+ (Negative); Ketones Urine Negative (Negative); Leukocyte Esterase Urine Negative (Negative); Nitrite Urine Negative (Negative); Protein Urine Negative (Negative); Specific Gravity Urine 1.004 (1.000-1.030); Urobilinogen Urine Negative (Negative)
[2022-02-16 23:24] LABS: Hematocrit (blood only) 41.6 % (37-47); Hemoglobin 14.6 g/dL (12.0-16.0); Mean Corpuscular Hemoglobin 33.2 pg (25-34); Mean Corpuscular Hgb Conc 35.1 g/dL (32-36); Mean Corpuscular Volume 94.5 fL (80-100); Mean Platelet Volume 10.2 fL (7.4-10.4); Platelet Count 404 K/uL (130-400); RDW Coefficient of Variation 13.3 % (11.5-14.5); RDW Standard Deviation 46.4 fL (36.4-46.3); White Blood Count 14.04 K/uL (4.8-10.8)
[2022-02-16 23:51] LABS: Amphetamines+Metham, Urine Pos (Neg); Barbiturates, Urine Neg (Neg); Benzodiazepine, Urine Neg (Neg); Cocaine, Urine Neg (Neg); MDMA (Ecstacy), Urine Neg (Neg); Methadone, Urine Neg (Neg); Opiate, Urine Neg (Neg); Phencyclidine, Urine Neg (Neg)
[2022-02-17 00:05] LABS: Albumin Globulin Ratio 1.6 (0.9-2); Albumin Level 4.8 gm/dl (3.4-5.0); Bilirubin,Total 0.6 mg/dl (0.2-1.0); Calcium 9.9 mg/dl (8.5-10.1); Creatinine Clr Calc Pharmacy 172.5 ml/min; Est GFR (African American) 148.4 ml/min; Est GFR (Non-African American) 128.1 ml/min; Potassium 3.8 mmol/L (3.5-5.1); Total Protein 7.8 gm/dl (6.0-8.3)
[2022-02-17 00:07] LABS: Basophils # (auto) 0.05 K/uL (0-0.2); Basophils % (auto) 0.4 %; Eosinophils # (auto) 0.15 K/uL (0-0.5); Eosinophils % (auto) 1.1 %; Immature Granulocytes # (auto) 0.07 K/uL (0.00-0.02); Immature Granulocytes % (auto) 0.5 %; Lymphocytes # (auto) 5.18 K/uL (1.2-3.4); Lymphocytes % (auto) 36.9 %; Monocytes % (auto) 8.5 %; Neutrophils # (auto) 7.39 K/uL (1.4-6.5); Neutrophils % (auto) 52.6 %
[2022-02-17] MEDS ORDERED: POTASSIUM CHLORIDE CRTAB 20 MEQ TABCR PO STA (00:55)
[2022-02-17] MEDS ORDERED: INSULIN GLARGINE SOLOSTAR 100 UNITS/ML 3 ML PEN SC STA (01:01)
[2022-02-17] MEDS ORDERED: GABAPENTIN 600 MG TAB PO STA (01:29)
--- NOTE | 2022-02-17 01:30 | History & Physical Report ---
Date of Service February 17, 2022 Assessment & Plan (1) Alcohol withdrawal: Plan: Right-sided abdominal pain with abnormal LFTs Likely alcoholic hepatitis DM2 on oral medications, patient markedly hyperglycemic recent hemoglobin A1c of 7 from April 2021 hyperlipidemia on statin Rx hx endometriosis status post hysterectomy mood disorder, at baseline, patient denies suicidality bronchial asthma, stable Medical telemetry BILL S, DT precautions CT abdomen pelvis Re: Abdominal pain/distention N.p.o. until CT results available Further management pending CT results Follow LFTs, GI consult if with progression Hold statin for now Basal insulin, ISS BG goal 1 10- 40, update hemoglobin A1c DM education DVT prophylaxis. Lovenox subcu Full code Text document was generated using [employer] voice recognition software. It may contain grammatical or spelling errors. Kindly contact undersigned for clarification of any documentation item in question. History of Present Illness Chief Complaint: Detox Primary Care Provider: Simona Lake, DO History obtained from patient and records. Medical history significant for DM2 on oral medications, hyperlipidemia, history PCOS, endometriosis status post hysterectomy, mood disorder, bronchial asthma, alcohol abuse. [facility] for depression. Patient had a recent talk with a friend about her personal issues. Patient realized that alcohol was not helping her situation. Patient had decided to quit drinking but was not comfortable doing it at home. Patient denies suicidality. Alcohol abuse started due to significant pain from endometriosis which has since been relieved by hysterectomy. Achy right-sided abdominal pain without fever, chills, nausea, vomiting the last few days. Denies black/bloody stools. 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 Allergies Allergy/AdvReac Type Severity Reaction Status Date / Time NSAIDS (Non-Steroidal Allergy Intermediate hives, Verified 02/16/22 23:24 Anti-Inflamma swelling Home Medications Medication Instructions Recorded Confirmed Type estradiol 0.05 mg/24 hr semiweekly 1 patch TOPICAL 2XWK 07/19/21 02/16/22 History transdermal patch acetaminophen 500 mg tablet 500 mg PO Q6H PRN 01/10/22 02/16/22 History cyclobenzaprine 5 mg tablet 5 mg PO BID PRN 01/10/22 02/16/22 History desvenlafaxine succinate 100 mg 100 mg PO QAM 01/10/22 02/16/22 History tablet,extended release 24 hr gabapentin 600 mg tablet 900 mg PO TID 01/10/22 02/16/22 History trazodone 50 mg tablet 25 - 300 mg PO HS PRN 02/16/22 02/16/22 History Past Med/Surg History Medical History Acid reflux occasional Alcohol intoxication Anxiety Asthma controlled Endometriosis Fibromyalgia Obesity Surgical History Abscess of pelvis s/p surgical drainage History of appendectomy History of cholecystectomy History of colonoscopy History of endometrial ablation History of esophagogastroduodenoscopy (EGD) Hx of laparoscopy x3 (for endometriosis) Hx of removal of ovary Hx of tonsillectomy [place] teeth extracted Family History Mother Narcolepsy Crohn's disease Hypertension Gallbladder disease Father Diabetes Anxiety Hypertension Family history of reaction to anesthesia SLOW TO WAKE UP/PONV Brother Anxiety Sister Anxiety Grandmother (Paternal) Breast cancer Aunt Breast cancer Grandfather (Maternal) Stroke Grandfather (Paternal) Heart disease Denies family history of Ovarian cancer Prostate cancer Lung cancer Colorectal cancer Social History Smoking Status: Never smoker Second Hand Exposure: Yes (MOTHER SMOKES/SISTER SMOKES OUTSIDE); Hx Alcohol Use: Yes Alcohol type: hard liquor Hx Substance Use: No Preferred Language: Filipino Communication Ability: Effective Visual Impairment: Limited Hearing Ability: Normal Physical Education Aide Required: No Beliefs That Will Affect Care: None marital status: Single Current Living Situation: Family Current Living Situation Comment: SISTER AND NEEDI current occupational status: unemployed Feels Safe at Home: Yes Childhood Exposure to Second-Hand Smoke: No caffeine: No Dental Care, Regularly: Yes Physical Activity Frequency: Does not Exercise Seatbelt Use: always Sunscreen Use: Yes Assistive Devices: None Review of Systems Review of Systems: As per HPI, all other systems reviewed and negative Physical Exam Physical Exam: GENERAL: Comfortable, pleasant, obese, no respiratory distress SKIN: Normal color, warm HEENT: [place] palpebral conjunctivae, no ptosis, moist buccal mucosa NECK : Supple, short neck, no tenderness CHEST : CTA, no tenderness HEART : Tachycardic, no obvious murmurs ABDOMEN: Some distention, minimal right-sided abdominal tenderness EXTREMITIES : No LE swelling/tenderness, no other conspicuous deformities noted NEUROLOGIC : Coherent, no facial asymmetry, no other gross focality Results & Data Results & Data ([facility]) Vital Signs (Past 12 Hours) Vital Signs Temp Pulse Resp BP Pulse Ox 02/17/22 01:00 114 H 23 129/78 94 02/17/22 00:30 113 H 21 108/85 96 02/17/22 00:00 111 H 19 103/67 94 02/16/22 23:30 112 H 19 123/98 95 02/16/22 23:09 113 H 20 92 02/16/22 23:06 114 H 14 123/86 95 02/16/22 22:40 36.6 C 119 H 20 157/99 H 94 Laboratory Results Laboratory Results WBC 14.04 K/uL (4.8-10.8) H 02/16/22 23:06 RBC 4.40 M/uL (4.2-5.4) 02/16/22 23:06 Hgb 14.6 g/dL (12.0-16.0) 02/16/22 23:06 Hct 41.6 % (37-47) 02/16/22 23:06 MCV 94.5 fL (80-100) 02/16/22 23:06 MCH 33.2 pg (25-34) 02/16/22 23:06 MCHC 35.1 g/dL (32-36) 02/16/22 23:06 RDW Std Deviation 46.4 fL (36.4-46.3) H 02/16/22 23:06 RDW Coeff of Piotr 13.3 % (11.5-14.5) 02/16/22 23:06 Plt Count 404 K/uL (130-400) H 02/16/22 23:06 MPV 10.2 fL (7.4-10.4) 02/16/22 23:06 Immature Gran % (Auto) 0.5 % 02/16/22 23:06 Neut % (Auto) 52.6 % 02/16/22 23:06 Lymph % (Auto) 36.9 % 02/16/22 23:06 [place] % (Auto) 8.5 % 02/16/22 23:06 Eos % (Auto) 1.1 % 02/16/22 23:06 Baso % (Auto) 0.4 % 02/16/22 23:06 Neut # (Auto) 7.39 K/uL (1.4-6.5) H 02/16/22 23:06 Lymph # (Auto) 5.18 K/uL (1.2-3.4) H 02/16/22 23:06 [place] # (Auto) 1.20 K/uL (0.11-0.59) H 02/16/22 23:06 Eos # (Auto) 0.15 K/uL (0-0.5) 02/16/22 23:06 Baso # (Auto) 0.05 K/uL (0-0.2) 02/16/22 23:06 Immature Gran # (Auto) 0.07 K/uL (0.00-0.02) H 02/16/22 23:06 Sodium 137 mmol/L (136-145) 02/16/22 23:06 Potassium 3.8 mmol/L (3.5-5.1) 02/16/22 23:06 Chloride 98 mmol/L (98-107) 02/16/22 23:06 Carbon Dioxide 21 mmol/L (21-32) 02/16/22 23:06 Anion Gap 18 (3-11) H 02/16/22 23:06 BUN 4 mg/dl (6-23) L 02/16/22 23:06 Creatinine 0.50 mg/dl (0.6-1.2) L 02/16/22 23:06 Est Cr Clr Drug Dosing 172.5 ml/min 02/16/22 23:06 Est GFR ( Amer) 148.4 ml/min 02/16/22 23:06 Est GFR (Non-Af Amer) 128.1 ml/min 02/16/22 23:06 BUN/Creatinine Ratio 8.0 (10-20) L 02/16/22 23:06 Glucose 322 mg/dl (70-99(Fasting)) H* 02/16/22 23:06 POC Glucose 245 mg/dl (70-99) H 02/17/22 00:29 Calcium 9.9 mg/dl (8.5-10.1) 02/16/22 23:06 Magnesium 2.0 mg/dl (1.7-2.4) 02/16/22 23:06 Total Bilirubin 0.6 mg/dl (0.2-1.0) 02/16/22 23:06 AST 351 U/L (13-39) H 02/16/22 23:06 ALT 247 U/L (7-52) H 02/16/22 23:06 Alkaline Phosphatase 121 U/L (34-104) H 02/16/22 23:06 Total Creatine Kinase 76 U/L (26-192) 02/16/22 23:06 Total Protein 7.8 gm/dl (6.0-8.3) 02/16/22 23:06 Albumin 4.8 gm/dl (3.4-5.0) 02/16/22 23:06 Globulin 3.0 gm/dl (2.5-4.0) 02/16/22 23:06 Albumin/Globulin Ratio 1.6 (0.9-2) 02/16/22 23:06 TSH 4.036 uIu/ml (0.300-4.500) 02/16/22 23:06 Urine Color Yellow 02/16/22 23:06 Urine Appearance Clear (Clear) 02/16/22 23:06 Urine pH 7.0 (4.5-7.5) 02/16/22 23:06 Ur Specific [place] 1.004 (1.000-1.030) 02/16/22 23:06 Urine Protein Negative (Negative) 02/16/22 23:06 Urine Glucose (UA) 2+ (Negative) H 02/16/22 23:06 Urine Ketones Negative (Negative) 02/16/22 23:06 Urine Blood Negative (Negative) 02/16/22 23:06 Urine Nitrite Negative (Negative) 02/16/22 23:06 Urine Bilirubin Negative (Negative) 02/16/22 23:06 Urine Urobilinogen Negative (Negative) 02/16/22 23:06 Ur Leukocyte Esterase Negative (Negative) 02/16/22 23:06 Urine Opiates Screen Neg (Neg) 02/16/22 23:06 Ur Methadone, Qual Neg (Neg) 02/16/22 23:06 Urine Barbiturates Neg (Neg) 02/16/22 23:06 Ur Phencyclidine (PCP) Neg (Neg) 02/16/22 23:06 U Amphetamin/Meth Scrn Pos (Neg) H 02/16/22 23:06 MDMA (Ecstasy) Screen Neg (Neg) 02/16/22 23:06 U Benzodiazepines Scrn Neg (Neg) 02/16/22 23:06 Ur Cocaine Metabolite Neg (Neg) 02/16/22 23:06 U Marijuana (THC) Screen Neg (Neg) 02/16/22 23:06 Ethyl Alcohol mg/dL 245.4 mg/dl (<10.0) H 02/16/22 23:06 SARS-CoV-2, RNA, NAAT NEGATIVE (NEGATIVE) 02/16/22 22:29 Diagnostic Findings EKG as per interpretation: Rate 110, sinus tachycardia, normal axis, T wave abnormality septal leads, PVCs
[2022-02-17] MEDS ORDERED: GABAPENTIN 300 MG CAP PO STA (01:34)
[2022-02-17] MEDS ORDERED: GABAPENTIN 600 MG TAB PO SCH (01:35)
[2022-02-17 01:36] LABS: Prothrombin Time 10.8 Seconds (9.0-12.0)
[2022-02-17] MEDS ORDERED: OPTIRAY 320 100ml IV ONE (01:57)
[2022-02-17] MEDS ORDERED: LACTATED RINGER'S 1,000 ML IV ONE (02:00)
[2022-02-17] MEDS ORDERED: GLUCOSE 40% GEL 15 GM TUBE PO PRN (02:26)
[2022-02-17] MEDS ORDERED: ATIVAN IV ALCOHOL WITHDRAWL IV PRN (02:26)
[2022-02-17] MEDS ORDERED: GLUCAGON FOR INJ 1 MG VIAL SQ PRN (02:26)
[2022-02-17] MEDS ORDERED: DEXTROSE 50% 50 ML SYRINGE IV PRN (02:26)
[2022-02-17] MEDS ORDERED: CYCLOBENZAPRINE HCL 5 MG TAB PO PRN (02:26)
[2022-02-17] MEDS ORDERED: GLUCOSE 10 TABS/TUBE PO PRN (02:26)
[2022-02-17] MEDS ORDERED: CARBOHYDRATES FOR HYPOGLYCEMIA PO PRN (02:26)
[2022-02-17] MEDS ORDERED: ACETAMINOPHEN 325 MG TAB PO PRN (02:26)
[2022-02-17] MEDS ORDERED: LORazepam 2 MG/1 ML VIAL IV PRN (02:26)
[2022-02-17] MEDS: INSULIN ASPART PER UNIT SC SCH ×5 (03:08→20:20)
[2022-02-17] MEDS: PROMETHAZINE HCL 12.5 MG in SODIUM CHLORIDE 0.9% 50 ML IV PRN (03:20)
[2022-02-17] MEDS: oxyCODONE HCL IR 5 MG TAB (IMMEDIATE RELEASE) PO PRN ×2 (07:25→20:12)
--- NOTE | 2022-02-17 07:25 | CT Scan Report ---
CT SCAN OF THE ABDOMEN AND PELVIS WITH IV CONTRAST CLINICAL HISTORY: Generalized abdominal pain. Bloating. COMPARISON STUDY: Abdominal CT dated 07/11/2020. TECHNIQUE: Following the IV administration of 95 cc of Optiray 320, CT scan of the abdomen and pelvi s is performed from the lung bases to the proximal femora. Images are reviewed in the axial, sagittal , and coronal planes. IV contrast was administered without complication. A dose lowering technique wa s utilized adhering to the principles of ALARA. CT DOSE: 734.91 mGy.cm FINDINGS: Lung bases: The heart is normal in size and without pericardial effusion. The lung bases are clear. Liver: The contrast-enhanced liver is enlarged, measuring 24.8 cm in length. The liver demonstrates d iffusely diminished attenuation consistent with hepatic steatosis. There is no intrahepatic biliary d uctal dilatation. The hepatic veins and portal veins are patent. Gallbladder: Surgically absent noting clips in the gallbladder fossa. Spleen: Normal in size and attenuation. Pancreas: Unremarkable. Adrenal glands: Unremarkable. Kidneys: The contrast enhanced kidneys are normal in size and without hydronephrosis. The kidneys enh ance symmetrically. Abdominal vasculature: The abdominal aorta is normal in course and caliber. Bowel: There is no bowel obstruction. The appendix is not identified and reported surgically absent. Peritoneum: There is no intraperitoneal free air or abdominal ascites. Lymphadenopathy: None. Pelvic viscera: The bladder is normal as visualized. The uterus is surgically absent. No adnexal lesi on is seen. Skeletal structures: No lytic or blastic lesions are seen. IMPRESSION: 1. No acute infectious or inflammatory findings are identified in the abdomen or pelvis. 2. Hepatomegaly and severe hepatic steatosis. 3. Additional findings as above. ACT 112: Negative or not required by law. Electronically signed by: Bonifacio Stephenson M.D. 02/17/2022 7:22 AM
[2022-02-17] MEDS: GABAPENTIN 300 MG CAP PO SCH ×3 (07:26→20:09)
[2022-02-17] MEDS: THIAMINE HCL 100 MG TAB PO SCH (07:27)
[2022-02-17] MEDS: FOLIC ACID 1 MG TAB PO SCH (07:27)
[2022-02-17] MEDS: ENOXAPARIN INJ 40 MG/0.4 ML SYR SQ SCH (07:27)
[2022-02-17] MEDS: MULTIVITAMIN TAB PO SCH (07:27)
[2022-02-17 07:29] LABS: Basophils # (auto) 0.03 K/uL (0-0.2); Basophils % (auto) 0.4 %; Eosinophils # (auto) 0.19 K/uL (0-0.5); Eosinophils % (auto) 2.5 %; Hematocrit (blood only) 38.7 % (37-47); Hemoglobin 13.2 g/dL (12.0-16.0); Immature Granulocytes # (auto) 0.02 K/uL (0.00-0.02); Immature Granulocytes % (auto) 0.3 %; Lymphocytes # (auto) 2.86 K/uL (1.2-3.4); Lymphocytes % (auto) 37.8 %; Mean Corpuscular Hemoglobin 32.6 pg (25-34); Mean Corpuscular Hgb Conc 34.1 g/dL (32-36); Mean Corpuscular Volume 95.6 fL (80-100); Mean Platelet Volume 9.8 fL (7.4-10.4); Monocytes # (auto) 0.65 K/uL (0.11-0.59); Monocytes % (auto) 8.6 %; Neutrophils # (auto) 3.81 K/uL (1.4-6.5); Neutrophils % (auto) 50.4 %; Platelet Count 306 K/uL (130-400); RDW Coefficient of Variation 13.5 % (11.5-14.5); RDW Standard Deviation 46.9 fL (36.4-46.3); Red Blood Count 4.05 M/uL (4.2-5.4); White Blood Count 7.56 K/uL (4.8-10.8)
[2022-02-17 07:57] LABS: Alanine Aminotransferase 198 U/L (7-52); Albumin Globulin Ratio 1.6 (0.9-2); Albumin Level 4.1 gm/dl (3.4-5.0); Alkaline Phosphatase 99 U/L (34-104); Anion Gap 10 (3-11); Aspartate Aminotransferase 267 U/L (13-39); BUN Creatinine Ratio 6.8 (10-20); Bilirubin,Total 0.6 mg/dl (0.2-1.0); Blood Urea Nitrogen 3 mg/dl (6-23); Calcium 8.7 mg/dl (8.5-10.1); Carbon Dioxide 26 mmol/L (21-32); Chloride 105 mmol/L (98-107); Creatinine Clr Calc Pharmacy 197.3 ml/min; Est GFR (African American) > 150.0 ml/min; Est GFR (Non-African American) 133.6 ml/min; Globulin 2.6 gm/dl (2.5-4.0); Glucose 161 mg/dl (70-99(Fasting)); Potassium 3.7 mmol/L (3.5-5.1); Sodium 141 mmol/L (136-145); Total Protein 6.7 gm/dl (6.0-8.3)
--- NOTE | 2022-02-17 08:54 | Electrocardiogram Report ---
Test Reason : Blood Pressure : / mmHG Vent. Rate : 111 BPM Atrial Rate : 111 BPM P-R Int : 132 ms QRS Dur : 096 ms QT Int : 362 ms P-R-T Axes : 001 066 019 degrees QTc Int : 492 ms Sinus tachycardia with frequent Premature ventricular complexes Otherwise normal ECG No previous ECGs available Confirmed by Olaf Caldwell ([id number]) on 02/17/2022 8:53:49 AM Referred By: REFERRED SELF Confirmed By:Olaf Caldwell
[2022-02-17] MEDS: LORazepam 2 MG/1 ML VIAL IV PRN ×2 (08:56→16:24)
[2022-02-17] MEDS: METOCLOPRAMIDE HCL INJ 5 MG/ML 2 ML VIAL IV PRN (08:56)
[2022-02-17] MEDS ORDERED: MULTIVITAMIN TAB PO SCH (09:00)
[2022-02-17] MEDS: DESVENLAFAXINE SUCCINATE ER TABLET PO SCH (13:13)
--- NOTE | 2022-02-17 17:36 | Communication Note ---
Date of Service: February 17, 2022 Pt was seen and examined for follow up of alcohol intoxication Sitting at the edge of the bed with no distress Pt said that she came because she wants to get dexox from alcohol She said that she drinks heavy alcohol daily She said that if she does not drink fora couple days that she has tremor and sweat She said that she had history of alcohol withdrawal She said that she did inpatient rehab in the past Denies any hallucination, chest pain,palpitation, dizziness and SOB exam General- No acute distress Head- atraumatic Eyes- PERRL, EOMI, ENT- oropharynx clear Neck- supple, no JVD Lungs- clear to auscultation Heart- regular rhythm; no murmur Abdomen- normal bowel sounds, soft, nontender Extremities- no calf tenderness Neuro- alert, oriented x 3; PERRL, EOMI; no facial palsy; no dysarthria Skin- warm & dry Alcohol abuse History of alcohol withdrawal in the past Present on admission to get help for her alcohol abuse Alcohol level 245 on admission Continue gabapentin/ativan alcohol withdrawal protocol Continue thiamine and folic acid Counseling on alcohol cessation Discussed about inpatient rehab- she wants to do outpatient alcohol treatment Continue monitor closely for sign of alcohol withdrawal or DT Transaminitis Mostly due to alcohol abuse Complaint of abdominal pain on admission AST 351 then decreased to 267 and ALT 247 then decreased to 198 CT head showed no acute infectious or inflammatory findings are identified in the abdomen or pelvis.Hepatomegaly and severe hepatic steatosis. Starting on full liquid diet and will advance as tolerated Continue monitor Liver enzymes Hyperglycemia Hba1c pending Currently on Lantus 10 unit and novolog sliding scale that were starting on a dmission Continue monitor BS DVT px on Lovenox Code Status Full code
[2022-02-17] MEDS: INSULIN GLARGINE SOLOSTAR 100 UNITS/ML 3 ML PEN SC SCH (20:23)
[2022-02-18] MEDS ORDERED: LORazepam 0.5 MG TAB PO STA (01:01)
[2022-02-18] MEDS ORDERED: cloNIDine HCL 0.1 MG TAB PO ONE (01:02)
[2022-02-18] MEDS: oxyCODONE HCL IR 5 MG TAB (IMMEDIATE RELEASE) PO PRN ×2 (05:04→12:24)
[2022-02-18 07:21] LABS: Estimated Average Glucose 163 mg/dl; Hemoglobin A1C 7.3 % (4.5-5.6)
[2022-02-18] MEDS ORDERED: DESVENLAFAXINE SUCCINATE ER TABLET PO SCH (09:00)
[2022-02-18] MEDS: GABAPENTIN 300 MG CAP PO SCH ×3 (09:23→20:42)
[2022-02-18] MEDS: THIAMINE HCL 100 MG TAB PO SCH (09:25)
[2022-02-18] MEDS: ENOXAPARIN INJ 40 MG/0.4 ML SYR SQ SCH (09:25)
[2022-02-18] MEDS: DESVENLAFAXINE SUCCINATE ER TABLET PO SCH (09:25)
[2022-02-18] MEDS: FOLIC ACID 1 MG TAB PO SCH (09:25)
[2022-02-18] MEDS: MULTIVITAMIN TAB PO SCH (09:25)
[2022-02-18] MEDS: INSULIN ASPART PER UNIT SC SCH ×4 (09:30→21:09)
[2022-02-18] MEDS: LORazepam 2 MG/1 ML VIAL IV PRN ×3 (09:30→20:47)
[2022-02-18 09:35] LABS: Albumin Globulin Ratio 1.5 (0.9-2); Albumin Level 4.2 gm/dl (3.4-5.0); BUN Creatinine Ratio 8.9 (10-20); Bilirubin,Total 0.7 mg/dl (0.2-1.0); Calcium 9.6 mg/dl (8.5-10.1); Est GFR (Non-African American) 123.4 ml/min; Globulin 2.8 gm/dl (2.5-4.0); Potassium 3.7 mmol/L (3.5-5.1)
[2022-02-18] MEDS: PROMETHAZINE HCL 12.5 MG in SODIUM CHLORIDE 0.9% 50 ML IV PRN (12:24)
[2022-02-18] MEDS: SODIUM CHLORIDE 0.9% 1000ML 1,000 ML IV SCH ×2 (12:24→20:41)
--- NOTE | 2022-02-18 15:03 | Ultrasound Report ---
US liver LIMITED ABDOMEN CLINICAL HISTORY: RUQ tenderness. COMPARISON: None. TECHNIQUE: Multiple grayscale and color images of the right upper quadrant of the abdomen. FINDINGS: The study is limited by overlying bowel gas. Pancreas: The imaged portion of the pancreas is within normal limits with no focal mass or peripancre atic fluid collection identified. Liver: The liver is enlarged with diffuse increased echogenicity characteristic of fatty infiltration . It measures 22 cm in the axillary margin. There is no evidence for a focal mass. There is no intrah epatic biliary duct dilatation. Gallbladder: The patient is status post cholecystectomy. Common Bile Duct: (CBD): It is normal in size measuring 6 mm Inferior Vena Cava (IVC): The imaged IVC is patent. Right kidney: There is no evidence for hydronephrosis, calculus or gross renal mass. The kidney is no rmal in size. IMPRESSION: 1. Hepatomegaly and mild fatty infiltration of the liver. ACT 112: Negative or not required by law. Electronically signed by: Dusty Alarcon M.D. 02/18/2022 3:02 PM
[2022-02-18 15:28] LABS: BUN Creatinine Ratio 7.4 (10-20); Creatinine Clr Calc Pharmacy 91.4 ml/min; Est GFR (African American) 91.9 ml/min; Est GFR (Non-African American) 79.3 ml/min
--- NOTE | 2022-02-18 19:39 | Hospitalist Progress Note ---
Date of Service February 18, 2022 Assessment & Plan (1) Alcohol withdrawal: Plan: Alcohol abuse History of alcohol withdrawal in the past Present on admission to get help for her alcohol abuse Alcohol level 245 on admission Continue gabapentin/ativan alcohol withdrawal protocol Continue thiamine and folic acid Counseling on alcohol cessation Discussed about inpatient rehab- she wants to do outpatient alcohol treatment Continue monitor closely for sign of alcohol withdrawal or DT Transaminitis Mostly due to alcohol abuse Complaint of abdominal pain on admission AST 351 then decreased to 267 and ALT 261 then decreased to 180 CT head showed no acute infectious or inflammatory findings are identified in the abdomen or pelvis.Hepatomegaly and severe hepatic steatosis. Liver u/s showed Hepatomegaly and mild fatty infiltration of the liver. Diet advanced as tolerated Continue monitor Liver enzymes Elevated anion gap Anion gap at 18 and glucose 322 on admission Possible due to mild DKA Received IVF and insulin Anion gap closed Continue monitor Diabetes type 2 Hba1c 7.3 on 02/16/22 Currently on Lantus 10 unit and novolog sliding scale that were starting on admission hospital educator on board Continue monitor BS DVT px on Lovenox Code Status Full code Admission and Anticipated Discharge Date Admission Date: February 17, 2022 Subjective Pt was seen and examined for follow up of alcohol intoxication Sitting at the edge of the bed with no distress Pt said that she seems to have some hallucination where she saw her dog She said that she feels alot better today Denies any hallucination, chest pain,palpitation, dizziness and SOB Review of Systems Review of Systems: All systems reviewed & are unremarkable except as noted in Subjective Physical Exam Physical Exam: General- No acute distress Head- atraumatic Eyes- PERRL, EOMI, ENT- oropharynx clear Neck- supple, no JVD Lungs- clear to auscultation Heart- regular rhythm; no murmur Abdomen- normal bowel sounds, soft, +RUQ tender with palpation Extremities- no calf tenderness Neuro- alert, oriented x 3; PERRL, EOMI; no facial palsy; no dysarthria Skin- warm & dry Results & Data Results & Data ([facility]) Vital Signs (Past 12 Hours) Vital Signs Temp Pulse Pulse Resp BP Pulse Ox 02/18/22 16:30 95 H 02/18/22 14:54 36.9 C 104 H 18 138/95 97 02/18/22 11:06 36.6 C 94 H 18 124/86 96 02/18/22 07:54 36.9 C 90 18 143/96 H 97
[2022-02-18] MEDS: INSULIN GLARGINE SOLOSTAR 100 UNITS/ML 3 ML PEN SC SCH (21:07)
[2022-02-19] MEDS: LORazepam 2 MG/1 ML VIAL IV PRN ×3 (03:23→14:46)
[2022-02-19] MEDS: oxyCODONE HCL IR 5 MG TAB (IMMEDIATE RELEASE) PO PRN ×3 (04:07→18:38)
[2022-02-19] MEDS: SODIUM CHLORIDE 0.9% 1000ML 1,000 ML IV SCH (04:12)
[2022-02-19 07:50] LABS: Albumin Globulin Ratio 1.5 (0.9-2); Albumin Level 4.1 gm/dl (3.4-5.0); BUN Creatinine Ratio 15.4 (10-20); Bilirubin,Total 0.7 mg/dl (0.2-1.0); Calcium 9.5 mg/dl (8.5-10.1); Creatinine Clr Calc Pharmacy 166.3 ml/min; Est GFR (African American) 146.5 ml/min; Est GFR (Non-African American) 126.4 ml/min; Globulin 2.7 gm/dl (2.5-4.0); Potassium 4.1 mmol/L (3.5-5.1); Total Protein 6.8 gm/dl (6.0-8.3)
[2022-02-19] MEDS: ENOXAPARIN INJ 40 MG/0.4 ML SYR SQ SCH (08:32)
[2022-02-19] MEDS: PROMETHAZINE HCL 12.5 MG in SODIUM CHLORIDE 0.9% 50 ML IV PRN (08:32)
[2022-02-19] MEDS: THIAMINE HCL 100 MG TAB PO SCH (08:33)
[2022-02-19] MEDS: GABAPENTIN 300 MG CAP PO SCH ×3 (08:33→20:01)
[2022-02-19] MEDS: FOLIC ACID 1 MG TAB PO SCH (08:33)
[2022-02-19] MEDS: MULTIVITAMIN TAB PO SCH (08:33)
[2022-02-19] MEDS: DESVENLAFAXINE SUCCINATE ER TABLET PO SCH (08:34)
[2022-02-19] MEDS: INSULIN ASPART PER UNIT SC SCH ×4 (08:41→20:02)
--- NOTE | 2022-02-19 18:20 | Hospitalist Progress Note ---
Date of Service February 19, 2022 Assessment & Plan (1) Alcohol withdrawal: Plan: Alcohol abuse History of alcohol withdrawal in the past Present on admission to get help for her alcohol abuse Alcohol level 245 on admission Continue gabapentin/ativan alcohol withdrawal protocol Continue thiamine and folic acid Counseling on alcohol cessation Discussed about inpatient rehab- she wants to do outpatient alcohol treatment Continue monitor closely for sign of alcohol withdrawal or DT Transaminitis Mostly due to alcohol abuse Complaint of abdominal pain on admission Liver enzymes continue to trend down with AST [address] head showed no acute infectious or inflammatory findings are identified in the abdomen or pelvis.Hepatomegaly and severe hepatic steatosis. Liver u/s showed Hepatomegaly and mild fatty infiltration of the liver. Diet advanced as tolerated Continue monitor Liver enzymes Elevated anion gap Anion gap at 18 and glucose 322 on admission Possible due to mild DKA Received IVF and insulin Anion gap closed Continue monitor Diabetes type 2 Hba1c 7.3 on 02/16/22 Currently on Lantus 10 unit and novolog sliding scale that were starting on admission nutrition educator on board Continue monitor BS DVT px on Lovenox Code Status Full code Disposition Will discharge home tomorrow Admission and Anticipated Discharge Date Admission Date: February 17, 2022 Subjective Pt was seen and examined for follow up of alcohol intoxication Lying in the bed with no acute distress She said that she continue to have abdominal pain Denies any hallucination, chest pain,palpitation, dizziness and SOB Review of Systems Review of Systems: All systems reviewed & are unremarkable except as noted in Subjective Physical Exam Physical Exam: General- No acute distress Head- atraumatic Eyes- PERRL, EOMI, ENT- oropharynx clear Neck- supple, no JVD Lungs- clear to auscultation Heart- regular rhythm; no murmur Abdomen- normal bowel sounds, soft, +RUQ tender with palpation Extremities- no calf tenderness Neuro- alert, oriented x 3; PERRL, EOMI; no facial palsy; no dysarthria Skin- warm & dry Results & Data Results & Data ([facility]) Vital Signs (Past 12 Hours) Vital Signs Temp Pulse Pulse Resp BP Pulse Ox 02/19/22 16:13 36.7 C 106 H 18 136/90 96 02/19/22 14:53 107 H 02/19/22 14:36 36.7 C 110 H 20 135/90 96 02/19/22 11:54 36.7 C 95 H 18 133/94 97 06/07/22 10:30 36.7 C 98 H 135/61 95 02/19/22 08:25 37.0 C 92 H 20 147/93 H 97 02/19/22 08:00 86
[2022-02-19] MEDS ORDERED: LORazepam 2 MG/1 ML VIAL ONE (19:22)
[2022-02-19] MEDS: INSULIN GLARGINE SOLOSTAR 100 UNITS/ML 3 ML PEN SC SCH (20:02)
[2022-02-20 00:12] LABS: Amphetamine Urine, Confirm 2020 ng/mL (<250); Methamphetamine, Ur Confirm NEGATIVE ng/mL (<250)
[2022-02-20] MEDS: INSULIN ASPART PER UNIT SC SCH ×4 (08:38→21:10)
[2022-02-20] MEDS: GABAPENTIN 300 MG CAP PO SCH ×3 (08:39→20:31)
[2022-02-20] MEDS: DESVENLAFAXINE SUCCINATE ER TABLET PO SCH (08:39)
[2022-02-20] MEDS: ENOXAPARIN INJ 40 MG/0.4 ML SYR SQ SCH (08:40)
[2022-02-20] MEDS: MULTIVITAMIN TAB PO SCH (08:41)
[2022-02-20] MEDS: THIAMINE HCL 100 MG TAB PO SCH (08:43)
[2022-02-20] MEDS: oxyCODONE HCL IR 5 MG TAB (IMMEDIATE RELEASE) PO PRN ×3 (08:45→20:30)
[2022-02-20 09:15] LABS: Albumin Globulin Ratio 1.4 (0.9-2); Albumin Level 4.4 gm/dl (3.4-5.0); BUN Creatinine Ratio 19.7 (10-20); Bilirubin,Total 0.8 mg/dl (0.2-1.0); Calcium 10.1 mg/dl (8.5-10.1); Creatinine Clr Calc Pharmacy 140.6 ml/min; Globulin 3.1 gm/dl (2.5-4.0); Potassium 3.9 mmol/L (3.5-5.1); Total Protein 7.5 gm/dl (6.0-8.3)
[2022-02-20] MEDS: FOLIC ACID 1 MG TAB PO SCH (11:37)
[2022-02-20] MEDS: LORazepam 2 MG/1 ML VIAL IV PRN ×2 (11:37→18:08)
[2022-02-20] MEDS: METOCLOPRAMIDE HCL INJ 5 MG/ML 2 ML VIAL IV PRN (11:38)
--- NOTE | 2022-02-20 12:57 | Hospitalist Progress Note ---
Date of Service February 20, 2022 Assessment & Plan (1) Alcohol withdrawal: Plan: Alcohol abuse History of alcohol withdrawal in the past Present on admission to get help for her alcohol abuse Alcohol level 245 on admission Continue gabapentin/ativan alcohol withdrawal protocol Continue thiamine and folic acid Counseling on alcohol cessation Discussed about inpatient rehab- she wants to do outpatient alcohol treatment Continue monitor closely for sign of alcohol withdrawal or DT Transaminitis Mostly due to alcohol abuse Complaint of abdominal pain on admission Liver enzymes continue to elevate AST [address] head showed no acute infectious or inflammatory findings are identified in the abdomen or pelvis.Hepatomegaly and severe hepatic steatosis. Liver u/s showed Hepatomegaly and mild fatty infiltration of the liver. Continue to have abdominal pain that worsening with food Will check Lipase Case discussed with gastro ( No official consult) that recommended to get an MRCP Diet advanced as tolerated Continue monitor Liver enzymes Elevated anion gap Anion gap at 18 and glucose 322 on admission Possible due to mild DKA Received IVF and insulin Anion gap closed resolved Diabetes type 2 Hba1c 7.3 on 02/16/22 Currently on Lantus 10 unit and novolog sliding scale that were starting on admission rn diabetes educator on board Continue monitor BS DVT px on Lovenox Code Status Full code Disposition Will discharge once medically stable Admission and Anticipated Discharge Date Admission Date: February 17, 2022 Subjective Pt was seen and examined for follow up of abdominal Lying in the bed with no acute distress She said that she continues to have abdominal pain after eating Spoke with GI about (No official consult place) that recommended MRCP Denies any hallucination, chest pain,palpitation, dizziness and SOB Review of Systems Review of Systems: All systems reviewed & are unremarkable except as noted in Subjective Physical Exam Physical Exam: General- No acute distress Head- atraumatic Eyes- PERRL, EOMI, ENT- oropharynx clear Neck- supple, no JVD Lungs- clear to auscultation Heart- regular rhythm; no murmur Abdomen- normal bowel sounds, soft, +RUQ tender with palpation Extremities- no calf tenderness Neuro- alert, oriented x 3; PERRL, EOMI; no facial palsy; no dysarthria Skin- warm & dry Results & Data Results & Data ([facility]) Vital Signs (Past 12 Hours) Vital Signs Temp Pulse Pulse Resp BP BP Pulse Ox 02/20/22 12:40 36.9 C 99 H 18 111/77 91 02/20/22 11:33 36.6 C 112 H 18 122/86 96 02/20/22 07:38 36.7 C 103 H 18 124/87 97 02/20/22 07:34 97 H 02/20/22 03:28 36.9 C 96 H 16 111/76 93
[2022-02-20] MEDS ORDERED: METOCLOPRAMIDE HCL INJ 5 MG/ML 2 ML VIAL IV PRN (18:19)
[2022-02-20] MEDS: INSULIN GLARGINE SOLOSTAR 100 UNITS/ML 3 ML PEN SC SCH (20:31)
--- NOTE | 2022-02-20 20:52 | Magnetic Resonance Report ---
MRCP CLINICAL HISTORY: Elevated hepatic transaminases. Right-sided abdominal pain. COMPARISON STUDY: Abdominal CT dated 02/17/2022. Abdominal ultrasound dated 02/18/2022. TECHNIQUE: Abdominal MRCP is performed utilizing various T2 weighted sequences in the axial and coron al planes. IV contrast was not administered for this examination. 3-D reformats are created and asses sed. FINDINGS: The gallbladder is surgically absent. There is no intrahepatic biliary ductal dilatation. The common bile duct measures up to 6 mm diameter. There are no intraluminal filling defects to suggest choledoc holithiasis. The pancreatic duct is normal in caliber. The liver is enlarged, measuring 24.2 cm in length. Severe steatosis was shown on prior CT and ultras ound examinations. The unenhanced liver is otherwise grossly unremarkable. The unenhanced spleen, jung creas, adrenal glands, and kidneys are grossly normal. The abdominal aorta is normal in caliber. Ther e is no bowel obstruction. No abdominal ascites is identified. No pleural effusion is seen. There is no evidence of destructive bone lesion. IMPRESSION: 1. Status post cholecystectomy. 2. Otherwise normal MRCP. 3. Hepatomegaly and severe hepatic steatosis. Dictated: 02/20/2022 8:06 PM Transcribed: 02/20/2022 8:27 PM Aby [id number] [email or web address] Electronically signed by: Bonifacio Stephenson M.D. 02/20/2022 8:51 PM
[2022-02-21] MEDS: GABAPENTIN 300 MG CAP PO SCH ×3 (08:27→21:34)
[2022-02-21] MEDS: FOLIC ACID 1 MG TAB PO SCH (08:27)
[2022-02-21] MEDS: ENOXAPARIN INJ 40 MG/0.4 ML SYR SQ SCH (08:27)
[2022-02-21] MEDS: THIAMINE HCL 100 MG TAB PO SCH (08:28)
[2022-02-21] MEDS: DESVENLAFAXINE SUCCINATE ER TABLET PO SCH (08:28)
[2022-02-21] MEDS: MULTIVITAMIN TAB PO SCH (08:28)
[2022-02-21] MEDS: INSULIN ASPART PER UNIT SC SCH ×4 (08:38→21:41)
[2022-02-21] MEDS: oxyCODONE HCL IR 5 MG TAB (IMMEDIATE RELEASE) PO PRN ×2 (08:39→12:40)
[2022-02-21 08:50] LABS: Alanine Aminotransferase 110 U/L (7-52); Albumin Globulin Ratio 1.4 (0.9-2); Albumin Level 4.4 gm/dl (3.4-5.0); Alkaline Phosphatase 101 U/L (34-104); Anion Gap 10 (3-11); BUN Creatinine Ratio 21.4 (10-20); Bilirubin,Total 0.8 mg/dl (0.2-1.0); Blood Urea Nitrogen 12 mg/dl (6-23); Calcium 10.1 mg/dl (8.5-10.1); Carbon Dioxide 24 mmol/L (21-32); Chloride 101 mmol/L (98-107); Creatinine Clr Calc Pharmacy 153.9 ml/min; Est GFR (Non-African American) 123.4 ml/min; Globulin 3.1 gm/dl (2.5-4.0); Glucose 121 mg/dl (70-99(Fasting)); Sodium 135 mmol/L (136-145); Total Protein 7.5 gm/dl (6.0-8.3)
[2022-02-21 09:55] LABS: Potassium 3.8 mmol/L (3.5-5.1)
[2022-02-21] MEDS ORDERED: FAMOTIDINE 20 MG TAB PO ONE (13:13)
--- NOTE | 2022-02-21 13:21 | Hospitalist Progress Note ---
Date of Service February 21, 2022 Assessment & Plan (1) Alcohol withdrawal: Plan: Alcohol abuse History of alcohol withdrawal in the past Present on admission to get help for her alcohol abuse Alcohol level 245 on admission Continue gabapentin per home regimen. She is improved so stopping IV ativan protocol at this time Will authorize PO benzo if needed for any persistent symptoms. Continue thiamine and folic acid Counseling on alcohol cessation Discussed about inpatient rehab- she wants to do outpatient alcohol treatment (2) RUQ pain: Plan: Persisent pain in her epigastric and RUQ area in setting of elevated LFTs. Worse with food. GB removed in the past. MRCP negative. CT a/p negative. GI consulted to help wt workup. Stopped oxycodone which is a terrible idea for a young patient with addiction issues. Use Pepcid, carafate to try and help pain, cont her gabapentin and use Tylenol for breakthrough discomfort. TUMS/GI cocktail or bentyl may also be considered. Avoid narcotics and benzos with known addiction issues. Noted severe allergy to NSAIDs. (3) Transaminitis: Plan: LFTs not improved, MRCP normal aside from hepatic steatosis which may be contributing in setting of heavy alcohol use. CT a/p unremarkable for acute intra-abdominal pathology. Continue to have abdominal pain that is worse with food. Lipase normal, but clinical pancreatitis 2/2 heavy alcohol use still in the differential There is epigastric tenderness reported as well as RUQ tenderness. DDx also includes alcoholic gastritis--no vomiting/hematemesis noted--will trial carafate and pepcid at this time. GI consult for recommendations. Trend LFTs in am. (4) High anion gap metabolic acidosis: Plan: possibly 2/2 alcoholic ketoacidosis, and glucose was mildly elevated so she was improved with insulin-considered mild DKA on admission. Reesolved. (5) Alcohol abuse: Plan: plan as above. (6) DMII (diabetes mellitus, type 2): Plan: Pt intolerant of metformin and would like to switch at discharge. Suggested glipizide which is what her dad uses. Will discuss further closer to discharge and she will follow-up [facility]. Cont basal bolus insulin at this time. (7) Chronic diarrhea: Plan: Pt states 4 BMs that are loose daily is her norm. Mother has Chron's but she reports a normal colonoscopy in the past. Monitor for electrolyte abnormalities. (8) DVT prophylaxis: Plan: Lovenox full Code Dispo-to home and would like to enroll in outpatient rehab option for counseling for alcohol addiction. Remains inpatient as having severe abdominal pain. Appreciate GI recommendations. Elham Orozco DO [facility] Hospitalist Admission and Anticipated Discharge Date Admission Date: February 17, 2022 Subjective 31 yo F alcoholic with diabetes admitted for care during alcohol withdrawal. She reports ongoing RUQ pain that is sharp, constant, non-radiating, that began the night before she was admitted. She is eating and reports her pain is worse with food She has had a cholecystectomy in the past MRCP negative yesterday Denies nausea, and no stool changes with 4 loose BMs daily as her norm. Mother has chrons disease but she denies this after personal workup She is not interested in inpatient alcoholic rehab at this time because of a concern for missing too much work She is interested in pursuing AA or other outpatient counseling to help her stay sober. Denies other drug use. Review of Systems Review of Systems: All systems were reviewed and negative except as indicated in HPI above. Physical Exam Physical Exam: CONSTITUTIONAL: WNWD, vitals as above, generally well- appearing, NAD EYES: normal conjunctivae, no scleral icterus, ENT: external ear and nose normal, oropharynx clear, MMM NECK: trachea midline, RESPIRATORY: clear to auscultation bilaterally, no crackles, rales or wheezes, normal respiratory effort CARDIOVASCULAR: regular rate and rhythm, S1 and 2 heard without murmurs, gallops or rubs, no JVD, no peripheral edema, no carotid bruits CHEST: inspection of chest was normal GASTROINTESTINAL: soft, nontender, ND, no guarding MUSCULOSKELETAL: strength 5/5 throughout, head is normocephalic and atraumatic, SKIN: warm and dry, NEUROLOGIC: CN 2-12 grossly intact, no sensory deficit, normal cognition, normal speech, no tremor PSYCHIATRIC: alert cooperative and oriented to person, place and time. Euthymic mood, makes good eye contact, language grossly intact, recent and remote memory grossly intact. Results & Data Results & Data ([facility]) Vital Signs (Past 12 Hours) Vital Signs Temp Pulse Pulse Resp BP BP Pulse Ox 02/21/22 10:39 36.7 C 105 H 18 109/76 97 02/21/22 07:36 36.7 C 96 H 18 113/76 97 02/21/22 07:14 85 02/21/22 03:11 36.6 C 93 H 18 112/80 93 Laboratory Results BMP 02/21/22 02/21/22 06:41 09:20 Sodium 135 L Potassium TNP 3.8 Chloride 101 Carbon Dioxide 24 BUN 12 Creatinine 0.56 L Glucose 121 H Calcium 10.1 Liver Function 02/21/22 02/21/22 Range/Units 06:41 09:20 Total Bilirubin 0.8 (0.2-1.0) mg/dl AST TNP 237 H ALT 110 H (7-52) U/L Alkaline Phosphatase 101 (34-104) U/L Albumin 4.4 (3.4-5.0) gm/dl Medications Administered Current Inpatient Medications Acetaminophen (Acetaminophen 325 Mg Tab) 650 mg PO Q6H PRN PRN Reason: Mild Pain Stop: 03/19/22 02:25 Cyclobenzaprine HCl (Cyclobenzaprine Hcl 5 Mg Tab) 5 mg PO BID PRN PRN Reason: Muscle Spasm Stop: 03/19/22 02:25 Desvenlafaxine Succinate (Desvenlafaxine Succinate Er Tablet) 1 tab PO [facility] Stop: 03/19/22 09:59 Last Admin: 02/21/22 08:28 Dose: 1 tab Documented by: Dextrose (Dextrose 50% 50 Ml Syringe) 25 - 50 ml IV UD PRN; Protocol PRN Reason: Hypoglycemia Protocol Stop: 03/19/22 02:25 Enoxaparin Sodium (Enoxaparin Inj 40 Mg/0.4 Ml Syr) 40 mg SQ [facility] Stop: 03/19/22 08:59 Last Admin: 02/21/22 08:27 Dose: 40 mg Documented by: Famotidine (Famotidine 20 Mg Tab) 20 mg PO BID PRN PRN Reason: abdominal pain Stop: 03/24/22 08:59 Folic Acid (Folic Acid 1 Mg Tab) 1 mg PO QAM [facility] Stop: 03/19/22 08:59 Last Admin: 02/21/22 08:27 Dose: 1 mg Documented by: Gabapentin (Gabapentin 300 Mg Cap) 900 mg PO TID [facility] Stop: 03/19/22 08:59 Last Admin: 02/21/22 12:41 Dose: 900 mg Documented by: Glucagon (Glucagon For Inj 1 Mg Vial) 1 mg SQ UD PRN; Protocol PRN Reason: Hypoglycemia Protocol Stop: 03/19/22 02:25 Glucose (Glucose 10 Tabs/Tube) 4 - 8 tabs PO UD PRN; Protocol PRN Reason: Hypoglycemia Protocol Stop: 03/19/22 02:25 Glucose (Glucose 40% Gel 15 Gm Tube) 15 - 30 gm PO UD PRN; Protocol PRN Reason: Hypoglycemia Protocol Stop: 03/19/22 02:25 Promethazine HCl 12.5 mg/ (Sodium Chloride) 50.5 mls @ 202 mls/hr IV Q6H PRN PRN Reason: Nausea And Vomiting Stop: 03/19/22 02:25 Last Infusion: 02/19/22 10:01 Dose: Infused Documented by: Insulin Aspart (Insulin Aspart Per Unit) 0 units SC ACHS [facility] Stop: 03/19/22 02:25 Last Admin: 02/21/22 12:40 Dose: 3 units Documented by: Insulin Glargine (Insulin Glargine Solostar 100 Units/Ml 3 Ml Pen) 10 units SC HS [facility] Stop: 03/19/22 20:59 Last Admin: 02/20/22 20:31 Dose: 10 units Documented by: Miscellaneous (Estradiol Patch~Order Awaiting Action) 1 ea N/A QS [facility] Stop: 03/19/22 07:59 Last Admin: 02/21/22 07:16 Dose: Not Given Documented by: Miscellaneous (Carbohydrates For Hypoglycemia ) 15 - 30 gm PO UD PRN PRN Reason: Hypoglycemia Protocol Stop: 03/19/22 02:25 Multivitamins (Multivitamin Tab) 1 [facility] Stop: 03/19/22 08:59 Last Admin: 02/21/22 08:28 Dose: 1 tab Documented by: Sucralfate (Sucralfate 1 Gm/10 Ml Udc) 1 gm PO QID [facility] Stop: 03/23/22 13:24 Thiamine HCl (Thiamine Hcl 100 Mg Tab) 100 mg PO QAM [facility] Stop: 03/19/22 08:59 Last Admin: 02/21/22 08:28 Dose: 100 mg Documented by: Trazodone HCl (Trazodone Hcl 100 Mg Tab) 100 mg PO HS PRN PRN Reason: Sleep Stop: 03/19/22 02:25
--- NOTE | 2022-02-21 13:45 | Gastrointestinal Consultation ---
Date of Consultation February 21, 2022 Assessment & Plan (1) RUQ pain: 31 year old female admitted for ETOH detox request, GI asked to evaluate for elevated LFTS and abdominal pain. Her AST > ALT and have been trending down since admission, ETOH level positive on arrival. Biliary imaging including ABD US, CT and MRCP w/ hepatomegaly and fatty liver but without evidence of biliary obstruction. DF not elevated ETOH withdrawal protocol Remain drug and alcohol free Can check a Tylenol level Would continue Carafate slurry Start Pantoprazole 20 mg once daily NPO after midngiht EGD in the AM Thank you for allowing us to participate in the care of this patient. Please call with any acute changes, questions or concerns. Please see addendum below with additional recommendation from my supervising physician. (2) Transaminitis: Supervising Physician Co-Signing Physician Notes Attg add: I interviewed and examined pt, reviewed chart and labs. Pt withh/o heavy alcohol elevated lFTs x 2-3 mos, with RUQ pain. Imaging shows hepatomegaly and steatosis. Also has chronic nausea, loose frequent stool s/p prior endoscopic w/u. Suspect LFT elevation is etoh related. RUQ pain likely from hepatomegaly, can proceed with EGD r/u PUD. Counselled on EtOH cessation. History of Present Illness Reason for Consultation: elevated LFTs, abd pain Requesting Physician: Ernesto Attending Physician: Elham Orozco, DO History of Present Illness 31 year old female with history of T2DM, anxiety/depression, fibromyalgia, ETOH abuse admitted for ETOH detox request. GI was asked to evaluate for right sided abd pain and elevated LFTs. On admission, ETOH level elevated at 245, utox +, Tb 0.8, AST 351 ALT 247, ALKP 121. Her transaminases today are improving but still elevated. Pt notes a chronic history of nausea. This has been present for years. Notes she often times does not have an appetite, has to eat slowly and has bad GERD. Not on therapy. About 6 months ago, developed right sided pain. Explained as dull, fullness, pressure. Worse with PO intake. Denies any black/bloody stools/emesis. No weight loss. No fever, chills, CP, SOB No nsaids denies tylenol drinks 1/2 bottle of vodka daily works at a [employer] wants to drinking [facility] 2021: . Status post cholecystectomy. Otherwise normal MRCP.Hepatomegaly and severe hepatic steatosis. ABD US 2021: Hepatomegaly and mild fatty infiltration of the liver. CTAP 2021: No acute infectious or inflammatory findings are identified in the abdomen or pelvis.. Hepatomegaly and severe hepatic steatosis. Allergies Allergy/AdvReac Type Severity Reaction Status Date / Time NSAIDS (Non-Steroidal Allergy Intermediate hives, Verified 02/16/22 23:24 Anti-Inflamma swelling Home Medications Medication Instructions Recorded Confirmed Type estradiol 0.05 mg/24 hr semiweekly 1 patch TOPICAL [id number] 07/19/21 02/16/22 History transdermal patch acetaminophen 500 mg tablet 500 mg PO Q6H PRN 01/10/22 02/16/22 History cyclobenzaprine 5 mg tablet 5 mg PO BID PRN 01/10/22 02/16/22 History desvenlafaxine succinate 100 mg 100 mg PO QAM 01/10/22 02/16/22 History tablet,extended release 24 hr gabapentin 600 mg tablet 900 mg PO TID 01/10/22 02/16/22 History trazodone 50 mg tablet 25 - 300 mg PO HS PRN 02/16/22 02/16/22 History Patient History Medical History Acid reflux occasional Alcohol intoxication Anxiety Asthma controlled Endometriosis Fibromyalgia Obesity Surgical History Abscess of pelvis s/p surgical drainage History of appendectomy History of cholecystectomy History of colonoscopy History of endometrial ablation History of esophagogastroduodenoscopy (EGD) Hx of laparoscopy x3 (for endometriosis) Hx of removal of ovary Hx of tonsillectomy [place] teeth extracted Family History Mother Narcolepsy Crohn's disease Hypertension Gallbladder disease Father Diabetes Anxiety Hypertension Family history of reaction to anesthesia SLOW TO WAKE UP/PONV Brother Anxiety Sister Anxiety Grandmother (Paternal) Breast cancer Aunt Breast cancer Grandfather (Maternal) Stroke Grandfather (Paternal) Heart disease Denies family history of Ovarian cancer Prostate cancer Lung cancer Colorectal cancer Social History Smoking Status: Never smoker Second Hand Exposure: Yes (MOTHER SMOKES/SISTER SMOKES OUTSIDE); Hx Alcohol Use: Yes Alcohol type: hard liquor Hx Substance Use: No Preferred Language: Montenegrin Communication Ability: Effective Visual Impairment: Limited Hearing Ability: Normal Court Magistrate Required: No Beliefs That Will Affect Care: None marital status: Single Current Living Situation: Family Current Living Situation Comment: SISTER AND KENDRICK current occupational status: unemployed Feels Safe at Home: Yes Childhood Exposure to Second-Hand Smoke: No caffeine: No Dental Care, Regularly: Yes Physical Activity Frequency: Does not Exercise Seatbelt Use: always Sunscreen Use: Yes Assistive Devices: None Review of Systems Review of Systems: All systems reviewed & are unremarkable except as noted in HPI & below Physical Exam Constitutional: WD/WN, vitals as above Neck: trachea midline, no thyromegaly Respiratory: normal respiratory effort, lungs clear to auscultation Cardiovascular: Rate/Rhythm: regular rate and regular rhythm Gastrointestinal (Abdomen): Inspection/Auscultation: normal bowel sounds Percussion/Palpation: + abdomen tender, abdomen soft and + hepatomegaly; no guarding and abdomen not rigid Skin: no rashes, warm and dry Results & Data ([facility]) Vital Signs (Past 12 Hours) Vital Signs Temp Pulse Pulse Resp BP BP Pulse Ox 02/21/22 10:39 36.7 C 105 H 18 109/76 97 02/21/22 07:36 36.7 C 96 H 18 113/76 97 02/21/22 07:14 85 02/21/22 03:11 36.6 C 93 H 18 112/80 93 Laboratory Results 02/21/22 02/21/22 02/21/22 Range/Units 11:41 09:20 07:41 Sodium (136-145) mmol/L Potassium 3.8 Chloride (98-107) mmol/L Carbon Dioxide (21-32) mmol/L Anion Gap (3-11) BUN (6-23) mg/dl Creatinine (0.6-1.2) mg/dl Est Cr Clr Drug Dosing ml/min Est GFR ( Amer) ml/min Est GFR (Non-Af Amer) ml/min BUN/Creatinine Ratio (10-20) Glucose (70-99(Fasting)) mg/dl POC Glucose 161 H 132 H (70-99) mg/dl Calcium (8.5-10.1) mg/dl Total Bilirubin (0.2-1.0) mg/dl AST 237 H ALT (7-52) U/L Alkaline Phosphatase (34-104) U/L Total Protein (6.0-8.3) gm/dl Albumin (3.4-5.0) gm/dl Globulin (2.5-4.0) gm/dl Albumin/Globulin Ratio (0.9-2) 02/21/22 02/20/22 02/20/22 Range/Units 06:41 20:12 16:38 Sodium 135 L (136-145) mmol/L Potassium TNP Chloride 101 (98-107) mmol/L Carbon Dioxide 24 (21-32) mmol/L Anion Gap 10 (3-11) BUN 12 (6-23) mg/dl Creatinine 0.56 L (0.6-1.2) mg/dl Est Cr Clr Drug Dosing 153.9 ml/min Est GFR ( Amer) 143.0 ml/min Est GFR (Non-Af Amer) 123.4 ml/min BUN/Creatinine Ratio 21.4 H (10-20) Glucose 121 H (70-99(Fasting)) mg/dl POC Glucose 129 H 140 H (70-99) mg/dl Calcium 10.1 (8.5-10.1) mg/dl Total Bilirubin 0.8 (0.2-1.0) mg/dl AST TNP ALT 110 H (7-52) U/L Alkaline Phosphatase 101 (34-104) U/L Total Protein 7.5 (6.0-8.3) gm/dl Albumin 4.4 (3.4-5.0) gm/dl Globulin 3.1 (2.5-4.0) gm/dl Albumin/Globulin Ratio 1.4 (0.9-2)
[2022-02-21] MEDS: SUCRALFATE 1 GM/10 ML UDC PO SCH ×3 (14:59→23:51)
[2022-02-21] MEDS: PROMETHAZINE HCL 12.5 MG in SODIUM CHLORIDE 0.9% 50 ML IV PRN (17:52)
[2022-02-21] MEDS: ACETAMINOPHEN 325 MG TAB PO PRN (19:37)
[2022-02-21] MEDS: FAMOTIDINE 20 MG TAB PO PRN (21:34)
[2022-02-21] MEDS: INSULIN GLARGINE SOLOSTAR 100 UNITS/ML 3 ML PEN SC SCH (21:41)
[2022-02-21] MEDS: traZODone HCL 100 MG TAB PO PRN (21:45)
[2022-02-22 07:30] LABS: Albumin Globulin Ratio 1.5 (0.9-2); Albumin Level 4.4 gm/dl (3.4-5.0); BUN Creatinine Ratio 18.9 (10-20); Bilirubin,Total 0.8 mg/dl (0.2-1.0); Calcium 9.8 mg/dl (8.5-10.1); Creatinine Clr Calc Pharmacy 162.4 ml/min; Est GFR (African American) 145.6 ml/min; Est GFR (Non-African American) 125.6 ml/min; Magnesium 1.9 mg/dl (1.7-2.4); Potassium 3.6 mmol/L (3.5-5.1); Total Protein 7.4 gm/dl (6.0-8.3)
--- NOTE | 2022-02-22 08:29 | Anesthesiology Consultation ---
Date of Service February 22, 2022 Assessment & Plan Chart Review Chart Review: Acceptable Risk for Surgery, Patient NOT seen in Pre Admission Testing and customs entry clerk initiated Consults Requested none Proposed Anesthesia Anesthesia Type: MAC History Surgery Operation Date: 02/21/22 17:30 Proposed Procedures p Esophagogastroduodenoscopy Dr Arnaldo Mcintosh MD Operation Date: 02/22/22 16:45 Proposed Procedures p Esophagogastroduodenoscopy Dr Arnaldo Mcintosh MD Height/Weight Height: 5 ft 4 in Weight: 86.7 kg Allergies Allergy/AdvReac Type Severity Reaction Status Date / Time NSAIDS (Non-Steroidal Allergy Intermediate hives, Verified 02/16/22 23:24 Anti-Inflamma swelling Medications Home Medications Medication Instructions Recorded Confirmed Last Taken estradiol 0.05 mg/24 hr semiweekly 1 patch TOPICAL [id number] 07/19/21 02/16/22 02/15/22 transdermal patch acetaminophen 500 mg tablet 500 mg PO Q6H PRN 01/10/22 02/16/22 01/10/22 05:00 1000 mg cyclobenzaprine 5 mg tablet 5 mg PO BID PRN 01/10/22 02/16/22 Unknown desvenlafaxine succinate 100 mg 100 mg PO QAM 01/10/22 02/16/22 02/16/22 tablet,extended release 24 hr gabapentin 600 mg tablet 900 mg PO TID 01/10/22 02/16/22 02/16/22 trazodone 50 mg tablet 25 - 300 mg PO HS PRN 02/16/22 02/16/22 Unknown Active Medications Generic Name Dose Route Start Last Admin Trade Name Rajat PRN Reason Stop Dose Admin Acetaminophen 650 mg 02/21/22 13:14 02/21/22 19:37 Acetaminophen 325 Mg Tab PO 03/19/22 02:25 650 mg Q6H PRN Administration Mild Pain Desvenlafaxine Succinate 1 tab 02/17/22 10:00 02/21/22 08:28 Desvenlafaxine Succinate Er Tablet PO 03/19/22 09:59 1 tab QAM NAE Administration Enoxaparin Sodium 40 mg 02/17/22 09:00 02/21/22 08:27 Enoxaparin Inj 40 Mg/0.4 Ml Syr SQ 03/19/22 08:59 40 mg QAM NAE Administration Famotidine 20 mg 02/22/22 09:00 02/21/22 21:34 Famotidine 20 Mg Tab PO 03/24/22 08:59 20 mg BID PRN Administration abdominal pain Folic Acid 1 mg 02/17/22 09:00 02/21/22 08:27 Folic Acid 1 Mg Tab PO 03/19/22 08:59 1 mg QAM NAE Administration Gabapentin 900 mg 02/17/22 09:00 02/21/22 21:34 Gabapentin 300 Mg Cap PO 03/19/22 08:59 900 mg TID NAE Administration Promethazine HCl 12.5 mg/ 50.5 mls @ 202 mls/hr 02/17/22 02:26 02/21/22 18:11 Sodium Chloride IV 03/19/22 02:25 Infused Q6H PRN Infusion Nausea And Vomiting Insulin Aspart 0 units 02/17/22 02:26 02/21/22 21:41 Insulin Aspart Per Unit SC 03/19/22 02:25 1 units ACHS NAE Administration Insulin Glargine 10 units 02/17/22 21:00 02/21/22 21:41 Insulin Glargine Solostar 100 Units/Ml 3 Ml Pen SC 03/19/22 20:59 10 units HS NAE Administration Miscellaneous 1 ea 02/17/22 08:00 02/21/22 23:52 Estradiol Patch~Order Awaiting Action N/A 03/19/22 07:59 Not Given QS NAE Multivitamins 1 tab 02/17/22 09:00 02/21/22 08:28 Multivitamin Tab PO 03/19/22 08:59 1 tab QAM NAE Administration Sucralfate 1 gm 02/21/22 13:25 02/21/22 23:51 Sucralfate 1 Gm/10 Ml Udc PO 03/23/22 13:24 Not Given QID NAE Thiamine HCl 100 mg 02/17/22 09:00 02/21/22 08:28 Thiamine Hcl 100 Mg Tab PO 03/19/22 08:59 100 mg QAM NAE Administration Trazodone HCl 100 mg 02/17/22 02:26 02/21/22 21:45 Trazodone Hcl 100 Mg Tab PO 03/19/22 02:25 100 mg HS PRN Administration Sleep Past Medical History Medical History Acid reflux occasional Alcohol intoxication Anxiety Asthma controlled Endometriosis Fibromyalgia Obesity Past Family History Family History Mother Narcolepsy Crohn's disease Hypertension Gallbladder disease Father Diabetes Anxiety Hypertension Family history of reaction to anesthesia SLOW TO WAKE UP/PONV Brother Anxiety Sister Anxiety Grandmother (Paternal) Breast cancer Aunt Breast cancer Grandfather (Maternal) Stroke Grandfather (Paternal) Heart disease Denies family history of Ovarian cancer Prostate cancer Lung cancer Colorectal cancer Past Surgical History Surgical History Abscess of pelvis s/p surgical drainage History of appendectomy History of cholecystectomy History of colonoscopy History of endometrial ablation History of esophagogastroduodenoscopy (EGD) Hx of laparoscopy x3 (for endometriosis) Hx of removal of ovary Hx of tonsillectomy [place] teeth extracted Social History Smoking Status: Never smoker Hx Alcohol Use: Yes Alcohol type: hard liquor alcohol intake frequency: 3 or more drinks per day Hx Substance Use: No Physical Exam Vital Signs Last Vital Signs Temp 36.6 C 02/22/22 07:25 Pulse 86 02/22/22 07:25 Resp 20 02/22/22 07:25 BP 110/75 02/22/22 07:25 Pulse Ox 96 02/22/22 07:25 Testing Laboratory Results 02/17/22 07:04 02/22/22 06:48 PT 10.8 Seconds (9.0-12.0) 02/16/22 23:06 INR 1.0 (0.9-1.1) 02/16/22 23:06 Hemoglobin A1c 7.3 % (4.5-5.6) H 02/16/22 23:06 Urine Color Yellow 02/16/22 23:06 Urine Appearance Clear (Clear) 02/16/22 23:06 Urine pH 7.0 (4.5-7.5) 02/16/22 23:06 Ur Specific [place] 1.004 (1.000-1.030) 02/16/22 23:06 Urine Protein Negative (Negative) 02/16/22 23:06 Urine Glucose (UA) 2+ (Negative) H 02/16/22 23:06 Urine Ketones Negative (Negative) 02/16/22 23:06 Urine Nitrite Negative (Negative) 02/16/22 23:06 Ur Leukocyte Esterase Negative (Negative) 02/16/22 23:06 02/22/22 07:30 POC Glucose 154 H Electrocardiogram Date: 02/16/22 Test Reason : Blood Pressure : / mmHG Vent. Rate : 111 BPM Atrial Rate : 111 BPM P-R Int : 132 ms QRS Dur : 096 ms QT Int : 362 ms P-R-T Axes : 001 066 019 degrees QTc Int : 492 ms Sinus tachycardia with frequent Premature ventricular complexes Otherwise normal ECG No previous ECGs available Confirmed by Olaf Caldwell ([id number]) on 02/17/2022 8:53:49 AM Other Testing 02/20/22 MRCP CLINICAL HISTORY: Elevated hepatic transaminases. Right-sided abdominal pain. COMPARISON STUDY: Abdominal CT dated 02/17/2022. Abdominal ultrasound dated 02/18/2022. TECHNIQUE: Abdominal MRCP is performed utilizing various T2 weighted sequences in the axial and coronal planes. IV contrast was not administered for this examination. 3-D reformats are created and assessed. FINDINGS: The gallbladder is surgically absent. There is no intrahepatic biliary ductal dilatation. The common bile duct measures up to 6 mm diameter. There are no intraluminal filling defects to suggest choledocholithiasis. The pancreatic duct is normal in caliber. The liver is enlarged, measuring 24.2 cm in length. Severe steatosis was shown on prior CT and ultrasound examinations. The unenhanced liver is otherwise grossly unremarkable. The unenhanced spleen, pancreas, adrenal glands, and kidneys are grossly normal. The abdominal aorta is normal in caliber. There is no bowel obstruction. No abdominal ascites is identified. No pleural effusion is seen. There is no evidence of destructive bone lesion. IMPRESSION: 1. Status post cholecystectomy. 2. Otherwise normal MRCP. 3. Hepatomegaly and severe hepatic steatosis.
[2022-02-22] MEDS: MULTIVITAMIN TAB PO SCH (08:34)
[2022-02-22] MEDS: FOLIC ACID 1 MG TAB PO SCH (08:35)
[2022-02-22] MEDS: GABAPENTIN 300 MG CAP PO SCH ×3 (08:35→20:41)
[2022-02-22] MEDS: FAMOTIDINE 20 MG TAB PO PRN (08:35)
[2022-02-22] MEDS: DESVENLAFAXINE SUCCINATE ER TABLET PO SCH (08:36)
[2022-02-22] MEDS: THIAMINE HCL 100 MG TAB PO SCH (08:36)
[2022-02-22] MEDS: ENOXAPARIN INJ 40 MG/0.4 ML SYR SQ SCH (08:36)
[2022-02-22] MEDS: PANTOprazole 40 MG TAB PO SCH (08:36)
[2022-02-22] MEDS: SUCRALFATE 1 GM/10 ML UDC PO SCH ×4 (08:37→20:42)
[2022-02-22] MEDS: INSULIN ASPART PER UNIT SC SCH ×4 (08:41→20:40)
[2022-02-22] MEDS ORDERED: SODIUM CHLORIDE 0.9% 1000ML 1,000 ML IV SCH (09:30)
[2022-02-22] MEDS: PROMETHAZINE HCL 12.5 MG in SODIUM CHLORIDE 0.9% 50 ML IV PRN (09:39)
[2022-02-22] MEDS: ACETAMINOPHEN 325 MG TAB PO PRN ×2 (09:42→19:48)
--- NOTE | 2022-02-22 13:11 | History & Physical Report ---
Date of Service February 22, 2022 Assessment & Plan (1) Abdominal pain: Plan: stable for EGD Admission and Anticipated Discharge Date Admission Date: February 17, 2022 History of Present Illness Chief Complaint: abdominal pain Primary Care Provider: Simona Lake DO pt with abdominal pain for EGD Allergies Allergy/AdvReac Type Severity Reaction Status Date / Time NSAIDS (Non-Steroidal Allergy Intermediate hives, Verified 02/22/22 12:41 Anti-Inflamma swelling Home Medications Medication Instructions Recorded Confirmed Type estradiol 0.05 mg/24 hr semiweekly 1 patch TOPICAL 2XWK 07/19/21 02/16/22 History transdermal patch acetaminophen 500 mg tablet 500 mg PO Q6H PRN 01/10/22 02/16/22 History cyclobenzaprine 5 mg tablet 5 mg PO BID PRN 01/10/22 02/16/22 History desvenlafaxine succinate 100 mg 100 mg PO QAM 01/10/22 02/16/22 History tablet,extended release 24 hr gabapentin 600 mg tablet 900 mg PO TID 01/10/22 02/16/22 History trazodone 50 mg tablet 25 - 300 mg PO HS PRN 02/16/22 02/16/22 History Past Med/Surg History Medical History (Updated 02/22/22 @ 13:11 by Rodney Mcintosh MD) Acid reflux occasional Alcohol intoxication Anxiety Asthma controlled Endometriosis Fibromyalgia Obesity Surgical History (Updated 02/22/22 @ 12:51 by Morena Martin) Abscess of pelvis s/p surgical drainage History of appendectomy History of cholecystectomy History of colonoscopy History of endometrial ablation History of esophagogastroduodenoscopy (EGD) History of hysterectomy reported by patient in 2019 Hx of laparoscopy x3 (for endometriosis) Hx of removal of ovary Hx of tonsillectomy [place] teeth extracted Family History Mother Narcolepsy Crohn's disease Hypertension Gallbladder disease Father Diabetes Anxiety Hypertension Family history of reaction to anesthesia SLOW TO WAKE UP/PONV Brother Anxiety Sister Anxiety Grandmother (Paternal) Breast cancer Aunt Breast cancer Grandfather (Maternal) Stroke Grandfather (Paternal) Heart disease Denies family history of Ovarian cancer Prostate cancer Lung cancer Colorectal cancer Social History Smoking Status: Never smoker Second Hand Exposure: Yes (MOTHER SMOKES/SISTER SMOKES OUTSIDE); Hx Alcohol Use: Yes Alcohol type: hard liquor Hx Substance Use: No Preferred Language: Croatian Communication Ability: Effective Visual Impairment: Limited Hearing Ability: Normal 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 Beliefs That Will Affect Care: None marital status: Single Current Living Situation: Family Current Living Situation Comment: SISTER AND NEICE current occupational status: unemployed Feels Safe at Home: Yes Childhood Exposure to Second-Hand Smoke: No caffeine: No Dental Care, Regularly: Yes Physical Activity Frequency: Does not Exercise Seatbelt Use: always Sunscreen Use: Yes Assistive Devices: None Physical Exam Constitutional: WD/WN, vitals as above Respiratory: normal respiratory effort, lungs clear to auscultation Cardiovascular: RRR, no murmur, no edema Gastrointestinal (Abdomen): normal bowel sounds, soft, nontender, no hepatosplenomegaly Results & Data ([facility]) Vital Signs (Past 12 Hours) Vital Signs Temp Pulse Resp BP Pulse Ox 02/22/22 12:43 36.1 C L 91 H 16 122/87 95 02/22/22 07:25 36.6 C 86 20 110/75 96 02/22/22 03:08 36.6 C 91 H 20 109/75 92 Code Status & VTE Plan VTE Prophylaxis Plan VTE Prophylaxis will be ordered: Yes
[2022-02-22] MEDS ORDERED: PROPOFOL IV EMULSION 10 MG/ML 20 ML VIAL IV ONE (13:39)
[2022-02-22] MEDS ORDERED: LIDOCAINE 2% 2 ML VIAL/AMP(20MG/ML) INFIL ONE (13:39)
--- NOTE | 2022-02-22 13:55 | Anesthesiology Progress Note ---
Date of Service February 22, 2022 Anesthesia Post Procedure Vital Signs Vital Signs: Temp Pulse Resp BP BP Pulse Ox 02/22/22 13:37 87 16 106/78 94 02/22/22 12:43 36.1 C L 91 H 16 122/87 95 02/22/22 07:25 36.6 C 86 20 110/75 96 02/22/22 03:08 36.6 C 91 H 20 109/75 92 02/21/22 23:48 36.8 C 101 H 20 121/75 93 02/21/22 16:18 36.6 C 70 18 114/80 94 Pain Intensity Head: Pain Intensity: 6 Right Upper Abdomen: Pain Intensity: 8 Transfer of Care Handoff Completed per policy Notes Mental Status: alert / awake / arousable and participated in evaluation Patient Amnestic to Procedure: Yes Nausea / Vomiting: adequately controlled Pain: adequately controlled Airway Patency, RR, SpO2: stable & adequate BP & HR: stable & adequate Hydration State: stable & adequate Anesthetic Complications: no major complications apparent and Pt Satisfied with anesthetic care
--- NOTE | 2022-02-22 14:51 | GI REPORT ---
Patient Name: Aparna Vasquez Procedure Date: 02/22/2022 1:13 PM Date of : 1990 Admit Type: Inpatient Age: 31 Gender: Female Attending MD: Rodney Mcintosh MD Procedure: Upper GI endoscopy Providers: Rodney Mcintosh MD Referring MD: Elham Orozco Do Indications: Upper abdominal pain Medicines: See the Anesthesia note for documentation of the administered medications Complications: No immediate complications. Estimated Blood Loss: Estimated blood loss: none. Procedure: Pre-Anesthesia Assessment: - Prior to the procedure, a History and Physical was performed, and patient medications, allergies and sensitivities were reviewed. The patient's tolerance of previous anesthesia was reviewed. - The risks and benefits of the procedure and the sedation options and risks were discussed with the patient. All questions were answered and informed consent was obtained. - Patient identification and proposed procedure were verified prior to the procedure by the physician and the nurse. The procedure was verified in the pre-procedure area. - Pre-procedure physical examination revealed no contraindications to sedation. - After reviewing the risks and benefits, the patient was deemed in satisfactory condition to undergo the procedure. After obtaining informed consent, the endoscope was passed under direct vision. Throughout the procedure, the patient's blood pressure, pulse, and oxygen saturations were monitored continuously. The Endoscope was introduced through the mouth, and advanced to the third part of duodenum. The upper GI endoscopy was accomplished without difficulty. The patient tolerated the procedure well. Findings: The esophagus was normal. The stomach was normal. The examined duodenum was normal. The cardia and gastric fundus were normal on retroflexion. Impression: - Normal esophagus. - Normal stomach. - Normal examined duodenum. - No specimens collected. Recommendation: - [facility] for [facility] care. Rodney Mcintosh M.D. Rodney Mcintosh MD 02/22/2022 2:50:32 PM This report has been signed electronically. Note Initiated On: 02/22/2022 1:13 PM Number of Addenda: 0 I attest to the content of the Intraoperative Record and orders documented therein, exceptions below {[id number]}
[2022-02-22] MEDS ORDERED: CALCIUM CARBONATE 500 MG CHEWABLE TAB PO PRN (16:29)
[2022-02-22] MEDS ORDERED: ALUMINUM/MAGNESIUM SUSP 18 ML, LIDOCAINE VISCOUS 2% SOLN 6 ML, BARCODE IDENTIFIER 1 EA PO ONE (16:29)
--- NOTE | 2022-02-22 16:31 | Hospitalist Progress Note ---
Date of Service February 22, 2022 Assessment & Plan (1) Alcohol withdrawal: Plan: Alcohol abuse History of alcohol withdrawal in the past Present on admission to get help for her alcohol abuse Alcohol level 245 on admission Continue gabapentin per home regimen. She is improved so [facility] protocol Will authorize PO benzo if needed for any persistent symptoms. Continue thiamine and folic acid Counseling on alcohol cessation Discussed about inpatient rehab- she wants to do outpatient alcohol treatment (2) RUQ pain: Plan: Persisent pain in her epigastric and RUQ area in setting of elevated LFTs. Wor se with food. GB removed in the past. MRCP negative. CT a/p negative. GI consulted to help wt workup. Stopped oxycodone which is a terrible idea for a young patient with addiction issues. Pepcid ok, carafate not helping, cont her gabapentin and use Tylenol for breakthrough discomfort. TUMS/GI cocktail or bentyl will be considered now. She reports trying Bentyl in the past with success for previous GI discomfort. Avoid narcotics and benzos with known addiction issues. Noted severe allergy to NSAIDs. (3) Transaminitis: Plan: LFTs not improved, MRCP normal aside from hepatic steatosis which may be contributing in setting of heavy alcohol use. CT a/p unremarkable for acute intra-abdominal pathology. Continue to have abdominal pain that is worse with food. Lipase normal, but clinical pancreatitis 2/2 heavy alcohol use still in the differential There is epigastric tenderness reported as well as RUQ tenderness. DDx also includes alcoholic gastritis--no vomiting/hematemesis noted--will trial carafate and pepcid at this time. GI consult for recommendations. Trend LFTs in am. (4) High anion gap metabolic acidosis: Plan: possibly 2/2 alcoholic ketoacidosis, and glucose was mildly elevated so she was improved with insulin-considered mild DKA on admission. Reesolved. (5) Alcohol abuse: Plan: plan as above. (6) DMII (diabetes mellitus, type 2): Plan: Pt intolerant of metformin and would like to switch at discharge. Suggested glipizide which is what her dad uses. Will discuss further closer to discharge and [facility]. Cont basal bolus insulin at this time. (7) Chronic diarrhea: Plan: Pt states 4 BMs that are loose daily is her norm. Mother has Chron's but she reports a normal colonoscopy in the past. Monitor for electrolyte abnormalities. (8) DVT prophylaxis: Plan: Lovenox full Code Dispo-to home and would like to enroll in outpatient rehab option for counseling for alcohol addiction. Remains inpatient as having severe abdominal pain. Elham Orozco DO [facility] Hospitalist Admission and Anticipated Discharge Date Admission Date: February 17, 2022 Subjective 31 yo F alcoholic with diabetes admitted for care during alcohol withdrawal. She reports ongoing RUQ pain that is sharp, constant, non-radiating, that began the night before she was admitted. She is eating but reports pain is still severe EGD was normal today still reports 4 loose BMs chronically per day Review of Systems Review of Systems: All systems were reviewed and negative except as indicated in HPI above. Physical Exam Physical Exam: CONSTITUTIONAL: WNWD, vitals as above, generally well- appearing, NAD EYES: normal conjunctivae, no scleral icterus, ENT: external ear and nose normal, oropharynx clear, MMM NECK: trachea midline, RESPIRATORY: clear to auscultation bilaterally, no crackles, rales or wheezes, normal respiratory effort CARDIOVASCULAR: regular rate and rhythm, S1 and 2 heard without murmurs, gallops or rubs, no JVD, no peripheral edema, CHEST: inspection of chest was normal GASTROINTESTINAL: soft, nontender, ND, no guarding MUSCULOSKELETAL: strength 5/5 throughout, head is normocephalic and atraumatic, SKIN: warm and dry, NEUROLOGIC: CN 2-12 grossly intact, no sensory deficit, normal cognition, normal speech, no tremor PSYCHIATRIC: alert cooperative and oriented to person, place and time. Euthymic mood, makes good eye contact, language grossly intact, recent and remote memory grossly intact. Results & Data Results & Data ([facility]) Vital Signs (Past 12 Hours) Vital Signs Temp Pulse Resp BP Pulse Ox 02/22/22 15:17 36.6 C 88 18 117/78 95 02/22/22 14:24 36.7 C 82 18 121/84 94 02/22/22 14:00 88 16 122/91 95 02/22/22 13:52 87 16 120/84 94 02/22/22 13:37 87 16 106/78 94 02/22/22 12:43 36.1 C L 91 H 16 122/87 95 02/22/22 07:25 36.6 C 86 20 110/75 96 Laboratory Results BMP 02/22/22 06:48 Sodium 136 Potassium 3.6 Chloride 102 Carbon Dioxide 25 BUN 10 Creatinine 0.53 L Glucose 137 H Calcium 9.8 Liver Function 02/22/22 Range/Units 06:48 Total Bilirubin 0.8 (0.2-1.0) mg/dl AST 257 H (13-39) U/L ALT 121 H (7-52) U/L Alkaline Phosphatase 99 (34-104) U/L Albumin 4.4 (3.4-5.0) gm/dl Medications Administered Current Inpatient Medications Acetaminophen (Acetaminophen 325 Mg Tab) 650 mg PO Q6H PRN PRN Reason: Mild Pain Stop: 03/19/22 02:25 Last Admin: 02/22/22 09:42 Dose: 650 mg Documented by: Calcium Carbonate (Calcium Carbonate 500 Mg Chewable Tab) 1,000 mg PO Q8H PRN PRN Reason: Indigestion Stop: 03/24/22 16:28 Al Hydrox/Mg Hydrox/Simethicone 18 ml/ Lidocaine HCl 6 ml/ BARCODE IDENTIFIER 1 ea 0 ml PO ONE ONE Stop: 02/22/22 16:30 Cyclobenzaprine HCl (Cyclobenzaprine Hcl 5 Mg Tab) 5 mg PO BID PRN PRN Reason: Muscle Spasm Stop: 03/19/22 02:25 Desvenlafaxine Succinate (Desvenlafaxine Succinate Er Tablet) 1 [facility] [place] Stop: 03/19/22 09:59 Last Admin: 02/22/22 08:36 Dose: 1 tab Documented by: Dextrose (Dextrose 50% 50 Ml Syringe) 25 - 50 ml IV UD PRN; Protocol PRN Reason: Hypoglycemia Protocol Stop: 03/19/22 02:25 Dicyclomine HCl (Dicyclomine Hcl 10 Mg Cap) 10 mg PO TID PRN PRN Reason: abdominal pain Stop: 03/24/22 16:28 Enoxaparin Sodium (Enoxaparin Inj 40 Mg/0.4 Ml Syr) 40 mg SQ QAM NAE Stop: 03/19/22 08:59 Last Admin: 02/22/22 08:36 Dose: 40 mg Documented by: Famotidine (Famotidine 20 Mg Tab) 20 mg PO BID PRN PRN Reason: abdominal pain Stop: 03/24/22 08:59 Last Admin: 02/22/22 08:35 Dose: 20 mg Documented by: Folic Acid (Folic Acid 1 Mg Tab) 1 mg PO QAM [facility] Stop: 03/19/22 08:59 Last Admin: 02/22/22 08:35 Dose: 1 mg Documented by: Gabapentin (Gabapentin 300 Mg Cap) 900 mg PO TID [facility] Stop: 03/19/22 08:59 Last Admin: 02/22/22 14:18 Dose: 900 mg Documented by: Glucagon (Glucagon For Inj 1 Mg Vial) 1 mg SQ UD PRN; Protocol PRN Reason: Hypoglycemia Protocol Stop: 03/19/22 02:25 Glucose (Glucose 10 Tabs/Tube) 4 - 8 tabs PO UD PRN; Protocol PRN Reason: Hypoglycemia Protocol Stop: 03/19/22 02:25 Glucose (Glucose 40% Gel 15 Gm Tube) 15 - 30 gm PO UD PRN; Protocol PRN Reason: Hypoglycemia Protocol Stop: 03/19/22 02:25 Promethazine HCl 12.5 mg/ (Sodium Chloride) 50.5 mls @ 202 mls/hr IV Q6H PRN PRN Reason: Nausea And Vomiting Stop: 03/19/22 02:25 Last Infusion: 02/22/22 09:54 Dose: Infused Documented by: Insulin Aspart (Insulin Aspart Per Unit) 0 units [facility] Stop: 03/19/22 02:25 Last Admin: 02/22/22 12:08 Dose: Not Given Documented by: Insulin Glargine (Insulin Glargine Solostar 100 Units/Ml 3 Ml Pen) 10 units SC HS [facility] Stop: 03/19/22 20:59 Last Admin: 02/21/22 21:41 Dose: 10 units Documented by: Miscellaneous (Estradiol Patch~Order Awaiting Action) 1 ea N/A QS [facility] Stop: 03/19/22 07:59 Last Admin: 02/22/22 15:46 Dose: Not Given Documented by: Miscellaneous (Carbohydrates For Hypoglycemia ) 15 - 30 gm PO UD PRN PRN Reason: Hypoglycemia Protocol Stop: 03/19/22 02:25 Multivitamins (Multivitamin Tab) 1 tab PO QAM [facility] Stop: 03/19/22 08:59 Last Admin: 02/22/22 08:34 Dose: 1 tab Documented by: Pantoprazole Sodium (Pantoprazole 40 Mg Tab) 40 mg PO QAM [facility] Stop: 03/24/22 08:59 Last Admin: 02/22/22 08:36 Dose: 40 mg Documented by: Sucralfate (Sucralfate 1 Gm/10 Ml Udc) 1 gm PO QID [facility] Stop: 03/23/22 13:24 Last Admin: 02/22/22 12:16 Dose: Not Given Documented by: Thiamine HCl (Thiamine Hcl 100 Mg Tab) 100 [facility] [place] [place] Stop: 03/19/22 08:59 Last Admin: 02/22/22 08:36 Dose: 100 mg Documented by: Trazodone HCl (Trazodone Hcl 100 Mg Tab) 100 mg PO HS PRN PRN Reason: Sleep Stop: 03/19/22 02:25 Last Admin: 02/21/22 21:45 Dose: 100 mg Documented by:
[2022-02-22] MEDS: DICYCLOMINE HCL 10 MG CAP PO PRN (18:28)
[2022-02-22] MEDS: traZODone HCL 100 MG TAB PO PRN (20:42)
[2022-02-22] MEDS: INSULIN GLARGINE SOLOSTAR 100 UNITS/ML 3 ML PEN SC SCH (20:43)
[2022-02-22] MEDS ORDERED: ESTRADIOL TOP SCH (21:00)
[2022-02-22] MEDS ORDERED: PATIENT'S OWN ORAL CONTRACEPTIVE PO SCH (21:00)
[2022-02-23] MEDS: PANTOprazole 40 MG TAB PO SCH (07:26)
[2022-02-23] MEDS: ACETAMINOPHEN 325 MG TAB PO PRN (07:27)
[2022-02-23] MEDS: MULTIVITAMIN TAB PO SCH (08:21)
[2022-02-23] MEDS: ENOXAPARIN INJ 40 MG/0.4 ML SYR SQ SCH (08:22)
[2022-02-23] MEDS: GABAPENTIN 300 MG CAP PO SCH ×2 (08:22→13:43)
[2022-02-23] MEDS: FOLIC ACID 1 MG TAB PO SCH (08:22)
[2022-02-23] MEDS: THIAMINE HCL 100 MG TAB PO SCH (08:23)
[2022-02-23] MEDS: SUCRALFATE 1 GM/10 ML UDC PO SCH ×2 (08:23→12:41)
[2022-02-23] MEDS: DESVENLAFAXINE SUCCINATE ER TABLET PO SCH (08:24)
[2022-02-23] MEDS: INSULIN ASPART PER UNIT SC SCH ×2 (08:27→12:35)
[2022-02-23 08:49] LABS: Hematocrit (blood only) 42.7 % (37-47); Hemoglobin 14.4 g/dL (12.0-16.0); Mean Corpuscular Hemoglobin 32.8 pg (25-34); Mean Corpuscular Hgb Conc 33.7 g/dL (32-36); Mean Corpuscular Volume 97.3 fL (80-100); Mean Platelet Volume 10.4 fL (7.4-10.4); Platelet Count 354 K/uL (130-400); RDW Coefficient of Variation 13.6 % (11.5-14.5); RDW Standard Deviation 48.3 fL (36.4-46.3); Red Blood Count 4.39 M/uL (4.2-5.4); White Blood Count 11.02 K/uL (4.8-10.8)
[2022-02-23 09:01] LABS: Albumin Globulin Ratio 1.6 (0.9-2); Albumin Level 4.5 gm/dl (3.4-5.0); Bilirubin,Total 0.7 mg/dl (0.2-1.0); Calcium 9.7 mg/dl (8.5-10.1); Creatinine Clr Calc Pharmacy 150.9 ml/min; Est GFR (African American) 142.2 ml/min; Est GFR (Non-African American) 122.7 ml/min; Globulin 2.9 gm/dl (2.5-4.0); Potassium 3.6 mmol/L (3.5-5.1); Total Protein 7.4 gm/dl (6.0-8.3)
[2022-02-23 09:18] LABS: Ferritin 403.4 ng/ml (8-388)
--- NOTE | 2022-02-23 12:50 | XRay Report ---
XR ribs RT min 2V w CXR1V CLINICAL HISTORY: Rib tender TECHNIQUE: 3 views of the right ribs were obtained. Single frontal view of the chest was obtained. Comparison: None available at the time of this dictation. FINDINGS: No fractures are seen. The chest wall and soft tissues are normal. The cardiomediastinal silhouette is normal. The lungs are clear. No evidence of pleural effusion or p neumothorax. IMPRESSION: No evidence of acute fracture or other acute abnormalities in the visualized portions of the chest. ACT 112: Negative or not required by law. Electronically signed by: Truong Ceron M.D. 02/23/2022 12:48 PM
[2022-02-23] MEDS: FAMOTIDINE 20 MG TAB PO PRN (12:58)
[2022-02-23] MEDS: DICYCLOMINE HCL 10 MG CAP PO PRN (12:58)
--- NOTE | 2022-02-23 13:49 | Hospitalist Progress Note ---
Date of Service February 23, 2022 Assessment & Plan (1) Alcohol withdrawal: Plan: Alcohol abuse H/O Alcohol withdrawal Alcohol level 245 Continue gabapentin On [facility] protocol Continue thiamine and folic acid Counseling on alcohol cessation Patient prefers to follow up with AA and do outpatient alcohol rehab (2) RUQ pain: Plan: Epigastric and RUQ abd pain Likely due to hepatic steatosis Normal lipase H/O cholecystectomy --MRCP: Status post cholecystectomy. Otherwise normal MRCP. --Liver USD:Hepatomegaly and mild fatty infiltration of the liver. --Rib X ray:No evidence of acute fracture or other acute abnormalities in the visualized portions of the chest. --CT ABD: No acute infectious or inflammatory findings are identified in the ab domen or pelvis. Hepatomegaly and severe hepatic steatosis. --EGD:Normal esophagus. Normal stomach. Normal examined duodenum. -- Appreciate GI input Patient is intolerant to Carafate, refuses to continue to take Continue Bentyl as needed Avoid narcotics Continue gabapentin, PPI Advised to follow-up with GI upon discharge (3) Transaminitis: Plan: Work-up as above Likely multifactorial--alcohol use, hepatic steatosis Appreciate GI input LFTs trending down Avoid hepatotoxic agents as able Counseled to quit alcohol use (4) High anion gap metabolic acidosis: Plan: Secondary to Alcoholic ketoacidosis Possible mild DKA Resolved (5) Alcohol abuse: Plan: Management as above (6) DMII (diabetes mellitus, type 2): Plan: Patient is intolerant to metformin Insulin sliding scale while hospitalized Will start on glipizide on discharge Advised to follow-up with PCP for further management (7) Chronic diarrhea: Plan: Chronic diarrhea Family H/O Chron's Patient reported normal colonoscopy in the past. Monitor electrolytes and replace as needed (8) DVT prophylaxis: Plan: Lovenox SQ Code Status full Code Admission and Anticipated Discharge Date Admission Date: February 17, 2022 Subjective Patient is seen and examined at bedside States having nausea earlier today which resolved Also reports having mild abdominal discomfort Denies any chest pain, shortness of breath, dizziness, vomiting Offers no other complaints Review of Systems Review of Systems: All systems reviewed & are unremarkable except as noted in Subjective Physical Exam Physical Exam: Physical Exam: Vitals signs as noted above General Appearance:Moderately built and nourished, no apparent distress Head: normocephalic, Atraumatic Eyes: normal inspection, EOMI Neck: supple, Trachea midline Respiratory/Chest: Normal breath sounds, CTA, No accessory muscle use Cardiovascular: S1, S2, No murmur Abdomen/GI:Soft, No significant tenderness, no guarding or rigidity, bowel sounds present Extremities/Musculoskeletal:normal inspection, no edema Neurologic/Psych:AAOX3, grossly no focal neurological deficits Skin: normal color, warm Results & Data Results & Data ([facility]) Vital Signs (Past 12 Hours) Vital Signs Pulse Ox 02/23/22 02:00 98 Laboratory Results Short CBC 02/23/22 Range/Units 08:06 WBC 11.02 H (4.8-10.8) K/uL Hgb 14.4 (12.0-16.0) g/dL Hct 42.7 (37-47) % Plt Count 354 (130-400) K/uL BMP 02/23/22 08:06 Sodium 136 Potassium 3.6 Chloride 101 Carbon Dioxide 26 BUN 8 Creatinine 0.57 L Glucose 151 H Calcium 9.7 Liver Function 02/23/22 Range/Units 08:06 Total Bilirubin 0.7 (0.2-1.0) mg/dl AST 195 H (13-39) U/L ALT 113 H (7-52) U/L Alkaline Phosphatase 96 (34-104) U/L Albumin 4.5 (3.4-5.0) gm/dl
--- NOTE | 2022-02-23 14:02 | Discharge Summary ---
Date of Service February 23, 2022 Admission HPI Per Admitting Provider pt with abdominal pain for EGD Admission Exam Per Admitting Provider Physical Exam Physical Exam: GENERAL: Comfortable, pleasant, obese, no respiratory distress SKIN: Normal color, warm HEENT: [place] palpebral conjunctivae, no ptosis, moist buccal mucosa NECK : Supple, short neck, no tenderness CHEST : CTA, no tenderness HEART : Tachycardic, no obvious murmurs ABDOMEN: Some distention, minimal right-sided abdominal tenderness EXTREMITIES : No LE swelling/tenderness, no other conspicuous deformities noted NEUROLOGIC : Coherent, no facial asymmetry, no other gross focality Principal Diagnosis Alcohol withdrawal Hepatic steatosis Transaminitis Anion gap metabolic acidosis Discharge Data Allergies Allergy/AdvReac Type Severity Reaction Status Date / Time NSAIDS (Non-Steroidal Allergy Intermediate hives, Verified 02/22/22 12:41 Anti-Inflamma swelling Consultations 02/17/22 00:35 ED Decision to Admit Stat 02/21/22 13:08 Consult Gastroenterology Routine Procedures Performed Operation Date: 02/21/22 17:30 <No data on this case meets the specified criteria> Operation Date: 02/22/22 16:45 Actual Procedures p Esophagogastroduodenoscopy - Rodney Mcintosh MD Ordered Studies 02/17/22 01:29 CT abd pelvis IV con only Urgent 02/18/22 11:14 US liver Routine 02/20/22 11:47 MR MRCP Routine Hospital Course (1) Alcohol withdrawal: Alcohol abuse H/O Alcohol withdrawal Alcohol level 245 Continue gabapentin On AWSS protocol Continue thiamine and folic acid Counseling on alcohol cessation Patient prefers to follow up with AA and do outpatient alcohol rehab (2) RUQ pain: Epigastric and RUQ abd pain Likely due to hepatic steatosis Normal lipase H/O cholecystectomy --MRCP: Status post cholecystectomy. Otherwise normal MRCP. --Liver USD:Hepatomegaly and mild fatty infiltration of the liver. --Rib X ray:No evidence of acute fracture or other acute abnormalities in the visualized portions of the chest. --CT ABD: No acute infectious or inflammatory findings are identified in the abdomen or pelvis. Hepatomegaly and severe hepatic steatosis. --EGD:Normal esophagus. Normal stomach. Normal examined duodenum. -- Appreciate GI input Patient is intolerant to Carafate, refuses to continue to take Continue Bentyl as needed Avoid narcotics Continue gabapentin, PPI Advised to follow-up with GI upon discharge (3) Transaminitis: Work-up as above Likely multifactorial--alcohol use, hepatic steatosis Appreciate GI input LFTs trending down Avoid hepatotoxic agents as able Counseled to quit alcohol use (4) High anion gap metabolic acidosis: Secondary to Alcoholic ketoacidosis Possible mild DKA Resolved (5) Alcohol abuse: Management as above (6) DMII (diabetes mellitus, type 2): Patient is intolerant to metformin Insulin sliding scale while hospitalized Will start on glipizide on discharge Advised to follow-up with PCP for further management (7) Chronic diarrhea: Chronic diarrhea Family H/O Chron's Patient reported normal colonoscopy in the past. Monitor electrolytes and replace as needed (8) DVT prophylaxis: Lovenox SQ Code Status full Code Total Time Total Time Spent Total Time Spent (In Minutes): 45 minutes Discharge Plan Discharge Items Patient Disposition: Home - Self-Care Reason For Visit: ETOH WITHDRAWAL Discharge Diagnosis: Alcohol withdrawal Hepatic steatosis Transaminitis Anion gap metabolic acidosis Condition on Discharge: Good Activity: Per Instructions section Exercise/Sports: Gradually increase as tolerated Non-emergency contact: Primary Care Provider and Statistics Professor Call non-emergency contact if: you have any medication questions, your symptoms worsen and you have a fever Follow-up/Referrals: Simona Lake, DO [Primary Care Provider] - Diet: Carb Consistent or DM2 and Heart Healthy Addtl Attending Provider Instructions: Follow-up with your primary care physician in 1 week. Please call for appointment Follow-up with your delivery representative in 2-4 weeks ---Quit drinking Alcohol as advised. --You are started on glipizide 2.5 mg daily for management of diabetes mellitus. Discussed with your family physician for further adjustment of medications as needed. Seek immediate medical attention if your symptoms reoccur or worsen Please take all medications as instructed on discharge list below. Please call if you have any questions or problems. You can reach a [facility] hospitalist on duty at [facility] 24 hours a day by calling [phone] Pending Studies at Discharge: Yes Studies:: Serological test for hepatitis. Stand-Alone Forms: My [facility] [employer]), Smoking Cessation Medications and DC Order Prescriptions: New dicyclomine 10 mg Capsule 10 mg PO TID PRN (Reason: pain) Qty: 15 RF: 0 famotidine 20 mg Tablet 20 mg PO BID PRN (Reason: dyspepsia) Qty: 30 RF: 0 pantoprazole 40 mg Tablet,Delayed Release (Dr/Ec) 40 mg PO QAM Qty: 30 RF: 0 folic acid 1 mg Tablet 1 mg PO QAM Qty: 30 RF: 0 thiamine HCl (vitamin B1) 100 mg Tablet 100 mg PO QAM Qty: 30 RF: 0 glipizide 2.5 mg tablet extended release 24 hr 2.5 mg PO DAILY Qty: 30 RF: 0 Continued estradiol 0.05 mg/24 hr patch semiweekly 1 patch topical 2XWK RF: 0 trazodone 50 mg tablet 25 - 300 mg PO HS PRN (Reason: Sleep) RF: 0 gabapentin 600 mg tablet 900 mg PO TID RF: 0 acetaminophen 500 mg Tablet 500 mg PO Q6H PRN (Reason: Pain) RF: 0 cyclobenzaprine 5 mg tablet 5 mg PO BID PRN (Reason: Muscle Spasm) RF: 0 desvenlafaxine succinate 100 mg tablet extended release 24 hr 100 mg PO QAM RF: 0 Discharge Orders: Discharge Order (Routine); Ordered 02/23/22 Ordered By: Sang Malagon Admission Data Admit Date/Time: 02/17/22 01:33 Attending Provider: Sang Malagon Admit Provider: Tobias Perez Primary Care Provider: Simona Lake Other Providers: Tobias Perez ; Leo Mckeon Other Interventions: Discharge Summary Assessment (RN) Last Done: 02/23/22 13:40
[2022-02-25] MEDS ORDERED: ESTRADIOL TOP SCH (21:00)
== END 2022-02-23 14:35 | disposition home or self-care (01) | DRG 896 ==
LOC: ED 22:37 → 2N 02-17 01:33 → SUATTDRO 02-17 01:33 → 2N 02-17 02:05

== ENCOUNTER 2022-05-17 14:11 | Inpatient (IN) ==
[2022-05-17 14:57] LABS: Appearance Urine Clear (Clear); Bilirubin Urine Negative (Negative); Blood Urine Negative (Negative); Color Urine Yellow; Glucose Urine UA Negative (Negative); Ketones Urine Negative (Negative); Leukocyte Esterase Urine Negative (Negative); Nitrite Urine Negative (Negative); Protein Urine Negative (Negative); Specific Gravity Urine 1.004 (1.000-1.030); Urobilinogen Urine Negative (Negative)
[2022-05-17 16:10] LABS: Basophils # (auto) 0.08 K/uL (0-0.2); Basophils % (auto) 0.9 %; Eosinophils # (auto) 0.08 K/uL (0-0.50); Eosinophils % (auto) 0.9 %; Hematocrit (blood only) 47.4 % (34.1-44.9); Hemoglobin 16.3 g/dl (12.0-16.0); Immature Granulocytes # (auto) 0.02 K/uL (0.00-0.02); Immature Granulocytes % (auto) 0.2 %; Lymphocytes # (auto) 3.81 K/uL (1.2-3.4); Lymphocytes % (auto) 45.1 %; Mean Corpuscular Hemoglobin 31.1 pg (25.0-34.0); Mean Corpuscular Hgb Conc 34.4 g/dL (32.0-36.0); Mean Corpuscular Volume 90.5 fL (80.0-100.0); Mean Platelet Volume 9.7 fL (9.4-12.3); Monocytes # (auto) 0.68 K/uL (0.24-0.82); Neutrophils # (auto) 3.78 K/uL (1.4-6.5); Neutrophils % (auto) 44.9 %; Platelet Count 358 K/uL (130-400); RDW Coefficient of Variation 13.6 % (11.5-14.5); RDW Standard Deviation 44.4 fL (36.4-46.3); Red Blood Count 5.24 M/uL (3.93-5.22); White Blood Count 8.45 K/ul (4.8-10.8)
[2022-05-17 16:32] LABS: Albumin Globulin Ratio 1.7 (0.9-2); BUN Creatinine Ratio 8.7 (10-20); Bilirubin,Total 0.4 mg/dl (0.2-1.0); Calcium 9.5 mg/dl (8.5-10.1); Creatinine Clr Calc Pharmacy 117.4 ml/min; Est GFR (African American) 133.5 ml/min; Est GFR (Non-African American) 115.2 ml/min; Globulin 2.9 gm/dl (2.5-4.0); Potassium 3.8 mmol/L (3.5-5.1); Total Protein 7.9 gm/dl (6.0-8.3)
[2022-05-17 16:33] LABS: Acetaminophen < 3 ug/ml (10-30); Salicylate < 3.0 mg/dl (3.0-30)
--- NOTE | 2022-05-17 16:54 | Emergency Department Note ---
Impression & Plan Depression with suicidal ideation, Anxiety, Alcohol abuse, Alcoholic intoxication ED Provider Note NAME: ZEYAD CALLAWAY AGE: 31 SEX: F : 1990 ARRIVES VIA: Ambulance INFORMANT: Patient, ED PROVIDER(S): Keanu Andres DO CHIEF COMPLAINT: Mental health evaluation HPI: The patient is a 31-year-old female who presented to the emergency department for a mental health evaluation. The patient has a history of bipolar disorder. She was drinking alcohol today. She states that she has had previous episodes of suicidal ideation with a plan to drown her self. She states that she is not been taking her medications for her mental health disorder or for her medical diagnoses either which include diabetes. She states that she has been having thoughts of drowning herself again and she drove to a stream earlier today and was having thoughts of drowning in the stream. She denies having any nausea or vomiting. She denies having any fever. She denies having any recent trauma. She did not take any pills. She came the emergency department voluntarily for an evaluation and possible inpatient treatment. ROS: See above HPI for pertinent positives & negatives. A total of 10 systems reviewed and were otherwise negative. PAST MEDICAL HISTORY: See Below PAST SURGICAL HISTORY: See Below FAMILY HISTORY: See Below SOCIAL HISTORY: See Below HOME MEDICATIONS: See Below ALLERGIES: See Below VITALS: See Below PHYSICAL EXAMINATION: GENERAL: The patient was asleep when I entered the room. She awakens easily. EYES: The conjunctivae are clear. The pupils are dilated but reactive. EARS, NOSE, MOUTH AND THROAT: The nose is without any evidence of any deformity. Mucous membranes are moist. Tongue is midline. NECK: The neck is nontender and supple. RESPIRATORY: Normal respiratory effort is noted there is no evidence of wheezing rhonchi or rales CARDIOVASCULAR: Regular rate and rhythm noted there no murmurs rubs or gallops normal S1 normal S2. GASTROINTESTINAL: The abdomen is soft. Abdomen is nontender. MUSCULOSKELETAL/EXTREMITIES: There is no evidence of gross deformity full range of motion is noted in the hips and shoulders. SKIN: There is no obvious evidence of any rash. There are no petechiae, pallor or cyanosis noted. NEUROLOGIC: Patient is awake alert and oriented x3 strength is symmetric patellar reflexes are 2+ bilaterally PSYCH: Patient makes good eye contact mostly evaluation. She does continue to have suicidal ideation with a plan. MEDICAL DECISION MAKING: The patient is a 31-year-old female who presented to the emergency department for mental health evaluation. The patient was intoxicated upon arrival to the emergency department. She was medically cleared in the emergency department. She was reevaluated multiple times. She was no longer clinically intoxicated on subsequent reevaluation but she appeared to have significant anxiety and was treated with Ativan in the emergency department. I discussed the patient's laboratory and radiographic studies with her. She was evaluated by the mental health disability case manager. She appears to still have significant depression symptoms as well as suicidal ideation. Currently bed search is underway. The patient was felt to be a good candidate for inpatient management and was agreeable to voluntary admission. Patient was evaluated by the delegate from [facility]. She was felt to be a good candidate for their unit. 201 was signed by myself. Triage Nursing notes reviewed. Prior medical records reviewed Vital Signs: reviewed and remarkable for no significant abnormalities Differential diagnosis: Mood disorder, infection, hypoglycemia, electrolyte abnormalities, cardiac sourc es, intracerebral event, toxicologic, trauma, neurologic, as well as other pathologies. ER treatment provided: See below Diagnostics interpreted by me: ECG: none Laboratory studies: As stated above and show below. Imaging studies: See below Consultation(s): none Past Med/Surg History Medical History Acid reflux occasional Alcohol intoxication Anxiety Asthma controlled Endometriosis Fibromyalgia Obesity Surgical History Abscess of pelvis s/p surgical drainage History of appendectomy History of cholecystectomy History of colonoscopy History of endometrial ablation History of esophagogastroduodenoscopy (EGD) History of hysterectomy reported by patient in 2019 Hx of laparoscopy x3 (for endometriosis) Hx of removal of ovary Hx of tonsillectomy [place] teeth extracted Family History Mother Narcolepsy Crohn's disease Hypertension Gallbladder disease Father Diabetes Anxiety Hypertension Family history of reaction to anesthesia SLOW TO WAKE UP/PONV Brother Anxiety Sister Anxiety Grandmother (Paternal) Breast cancer Aunt Breast cancer Grandfather (Maternal) Stroke Grandfather (Paternal) Heart disease Denies family history of Ovarian cancer Prostate cancer Lung cancer Colorectal cancer Social History Smoking Status: Never smoker Second Hand Exposure: Yes (MOTHER SMOKES/SISTER SMOKES OUTSIDE); Hx Alcohol Use: Yes Alcohol type: hard liquor Hx Substance Use: No Preferred Language: Swazi Communication Ability: Effective Visual Impairment: Limited Hearing Ability: Normal Oyster Cultivator Required: No Beliefs That Will Affect Care: None marital status: Single Current Living Situation: Family Current Living Situation Comment: SISTER AND NEEDI current occupational status: unemployed Feels Safe at Home: Yes Childhood Exposure to Second-Hand Smoke: No caffeine: No Dental Care, Regularly: Yes Physical Activity Frequency: Does not Exercise Seatbelt Use: always Sunscreen Use: Yes Assistive Devices: None Allergies Allergies Allergy/AdvReac Type Severity Reaction Status Date / Time NSAIDS (Non-Steroidal Allergy Intermediate hives, Verified 02/22/22 12:41 Anti-Inflamma swelling Home Meds Home Medications Medication Instructions Recorded Confirmed estradiol 0.05 mg/24 hr semiweekly 1 patch topical 2XWK 07/19/21 02/16/22 transdermal patch acetaminophen 500 mg tablet 500 mg PO Q6H PRN Pain 01/10/22 02/16/22 cyclobenzaprine 5 mg tablet 5 mg PO BID PRN Muscle Spasm 01/10/22 02/16/22 desvenlafaxine succinate 100 mg 100 mg PO QAM 01/10/22 02/16/22 tablet,extended release 24 hr gabapentin 600 mg tablet 900 mg PO TID 01/10/22 02/16/22 trazodone 50 mg tablet 25 - 300 mg PO HS PRN Sleep 02/16/22 02/16/22 Previous Rx's Medication Instructions Recorded dicyclomine 10 mg capsule 10 mg PO TID PRN pain #15 caps 02/23/22 famotidine 20 mg tablet 20 mg PO BID PRN dyspepsia #30 tabs 02/23/22 folic acid 1 mg tablet 1 mg PO QAM #30 tabs 02/23/22 glipizide 2.5 mg tablet, extended 2.5 mg PO DAILY #30 tabs 02/23/22 release 24 hr pantoprazole 40 mg tablet,delayed 40 mg PO QAM #30 tabs 02/23/22 release thiamine HCl (vitamin B1) 100 mg 100 mg PO QAM #30 tabs 02/23/22 tablet Results & Data (ED) Vital Signs Vital Signs - 24 hr 05/17/22 14:15 05/17/22 18:30 05/17/22 20:00 Temperature 36.8 C Temperature Source Oral Pulse Rate 88 Pulse Rate [Right Finger] 122 H 103 H Pulse Rhythm Regular Pulse Rhythm [Right Finger] Regular Pulse Strength Normal Pulse Strength [Right Finger] Normal Respiratory Rate 22 18 18 Respiratory Effort / Characteristics Non-Labored Spontaneous Non-Labored Respiratory Depth Normal Normal Respiratory Pattern Regular Blood Pressure 125/86 Blood Pressure [Left Arm] 112/68 137/98 Blood Pressure Mean 99 Blood Pressure Mean [Left Arm] 82 111 Blood Pressure Position Sitting Pulse Oximetry 98 96 97 Oxygen Delivery Method Room Air Room Air Sepsis Recent Fever Within 48 Hours No Sepsis New/Unexplained Change in Mental Status No Sepsis Action Taken by Nursing No Action Required 05/17/22 22:44 05/17/22 23:06 Temperature Temperature Source Pulse Rate Pulse Rate [Right Finger] 87 78 Pulse Rhythm Pulse Rhythm [Right Finger] Pulse Strength Pulse Strength [Right Finger] Respiratory Rate 18 20 Respiratory Effort / Characteristics Respiratory Depth Normal Respiratory Pattern Blood Pressure Blood Pressure [Left Arm] 132/83 127/92 Blood Pressure Mean Blood Pressure Mean [Left Arm] 99 103 Blood Pressure Position Pulse Oximetry 97 98 Oxygen Delivery Method Room Air Room Air Sepsis Recent Fever Within 48 Hours Sepsis New/Unexplained Change in Mental Status Sepsis Action Taken by Correction Medications Current Medication List: was personally reviewed by me Laboratory Data Attestation: I reviewed the patient's lab results. Result diagrams: 05/17/22 15:56 05/17/22 15:56 Lab Results 05/17/22 05/17/22 05/17/22 Range/Units 14:20 14:20 15:56 WBC 8.45 (4.8-10.8) K/ul RBC 5.24 H (3.93-5.22) M/uL Hgb 16.3 H (12.0-16.0) g/dl Hct 47.4 H (34.1-44.9) % MCV 90.5 (80.0-100.0) fL MCH 31.1 (25.0-34.0) pg MCHC 34.4 (32.0-36.0) g/dL RDW Std Deviation 44.4 (36.4-46.3) fL RDW Coeff of Piotr 13.6 (11.5-14.5) % Plt Count 358 (130-400) K/uL MPV 9.7 (9.4-12.3) fL Immature Gran % (Auto) 0.2 % Neut % (Auto) 44.9 % Lymph % (Auto) 45.1 % [place] % (Auto) 8.0 % Eos % (Auto) 0.9 % Baso % (Auto) 0.9 % Neut # (Auto) 3.78 (1.4-6.5) K/uL Lymph # (Auto) 3.81 H (1.2-3.4) K/uL [place] # (Auto) 0.68 (0.24-0.82) K/uL Eos # (Auto) 0.08 (0-0.50) K/uL Baso # (Auto) 0.08 (0-0.2) K/uL Immature Gran # (Auto) 0.02 (0.00-0.02) K/uL Sodium (136-145) mmol/L Potassium (3.5-5.1) mmol/L Chloride (98-107) mmol/L Carbon Dioxide (21-32) mmol/L Anion Gap (3-11) BUN (6-23) mg/dl Creatinine (0.6-1.2) mg/dl Est Cr Clr Drug Dosing ml/min Est GFR ( Amer) ml/min Est GFR (Non-Af Amer) ml/min BUN/Creatinine Ratio (10-20) Glucose (70-99(Fasting)) mg/dl Calcium (8.5-10.1) mg/dl Total Bilirubin (0.2-1.0) mg/dl AST (13-39) U/L ALT (7-52) U/L Alkaline Phosphatase (34-104) U/L Total Protein (6.0-8.3) gm/dl Albumin (3.4-5.0) gm/dl Globulin (2.5-4.0) gm/dl Albumin/Globulin Ratio (0.9-2) TSH (0.300-4.500) uIu/ml Urine Color Yellow Urine Appearance Clear (Clear) Urine pH 7.0 (4.5-7.5) Ur Specific [place] 1.004 (1.000-1.030) Urine Protein Negative (Negative) Urine Glucose (UA) Negative (Negative) Urine Ketones Negative (Negative) Urine Blood Negative (Negative) Urine Nitrite Negative (Negative) Urine Bilirubin Negative (Negative) Urine Urobilinogen Negative (Negative) Ur Leukocyte Esterase Negative (Negative) Salicylates (3.0-30) mg/dl Urine Opiates Screen Neg (Neg) Ur Methadone, Qual Neg (Neg) Acetaminophen (10-30) ug/ml Urine Barbiturates Neg (Neg) Ur Phencyclidine (PCP) Neg (Neg) U Amphetamin/Meth Scrn Neg (Neg) MDMA (Ecstasy) Screen Neg (Neg) U Benzodiazepines Scrn Neg (Neg) Ur Cocaine Metabolite Neg (Neg) U Marijuana (THC) Screen Neg (Neg) Ethyl Alcohol mg/dL (<10.0) mg/dl SARS-CoV-2, RNA, NAAT (NEGATIVE) 05/17/22 05/17/22 05/17/22 Range/Units 15:56 15:56 15:56 WBC (4.8-10.8) K/ul RBC (3.93-5.22) M/uL Hgb (12.0-16.0) g/dl Hct (34.1-44.9) % MCV (80.0-100.0) fL MCH (25.0-34.0) pg MCHC (32.0-36.0) g/dL RDW Std Deviation (36.4-46.3) fL RDW Coeff of Piotr (11.5-14.5) % Plt Count (130-400) K/uL MPV (9.4-12.3) fL Immature Gran % (Auto) % Neut % (Auto) % Lymph % (Auto) % [place] % (Auto) % Eos % (Auto) % Baso % (Auto) % Neut # (Auto) (1.4-6.5) K/uL Lymph # (Auto) (1.2-3.4) K/uL [place] # (Auto) (0.24-0.82) K/uL Eos # (Auto) (0-0.50) K/uL Baso # (Auto) (0-0.2) K/uL Immature Gran # (Auto) (0.00-0.02) K/uL Sodium 144 (136-145) mmol/L Potassium 3.8 (3.5-5.1) mmol/L Chloride 106 (98-107) mmol/L Carbon Dioxide 29 (21-32) mmol/L Anion Gap 9 (3-11) BUN 6 (6-23) mg/dl Creatinine 0.69 (0.6-1.2) mg/dl Est Cr Clr Drug Dosing 117.4 ml/min Est GFR ( Amer) 133.5 ml/min Est GFR (Non-Af Amer) 115.2 ml/min BUN/Creatinine Ratio 8.7 L (10-20) Glucose 106 H (70-99(Fasting)) mg/dl Calcium 9.5 (8.5-10.1) mg/dl Total Bilirubin 0.4 (0.2-1.0) mg/dl AST 230 H (13-39) U/L ALT 206 H (7-52) U/L Alkaline Phosphatase 89 (34-104) U/L Total Protein 7.9 (6.0-8.3) gm/dl Albumin 5.0 (3.4-5.0) gm/dl Globulin 2.9 (2.5-4.0) gm/dl Albumin/Globulin Ratio 1.7 (0.9-2) TSH 0.740 (0.300-4.500) uIu/ml Urine Color Urine Appearance (Clear) Urine pH (4.5-7.5) Ur Specific [place] (1.000-1.030) Urine Protein (Negative) Urine Glucose (UA) (Negative) Urine Ketones (Negative) Urine Blood (Negative) Urine Nitrite (Negative) Urine Bilirubin (Negative) Urine Urobilinogen (Negative) Ur Leukocyte Esterase (Negative) Salicylates < 3.0 L (3.0-30) mg/dl Urine Opiates Screen (Neg) Ur Methadone, Qual (Neg) Acetaminophen < 3 L (10-30) ug/ml Urine Barbiturates (Neg) Ur Phencyclidine (PCP) (Neg) U Amphetamin/Meth Scrn (Neg) MDMA (Ecstasy) Screen (Neg) U Benzodiazepines Scrn (Neg) Ur Cocaine Metabolite (Neg) U Marijuana (THC) Screen (Neg) Ethyl Alcohol mg/dL (<10.0) mg/dl SARS-CoV-2, RNA, NAAT (NEGATIVE) 05/17/22 05/17/22 Range/Units 15:56 19:51 WBC (4.8-10.8) K/ul RBC (3.93-5.22) M/uL Hgb (12.0-16.0) g/dl Hct (34.1-44.9) % MCV (80.0-100.0) fL MCH (25.0-34.0) pg MCHC (32.0-36.0) g/dL RDW Std Deviation (36.4-46.3) fL RDW Coeff of Piotr (11.5-14.5) % Plt Count (130-400) K/uL MPV (9.4-12.3) fL Immature Gran % (Auto) % Neut % (Auto) % Lymph % (Auto) % [place] % (Auto) % Eos % (Auto) % Baso % (Auto) % Neut # (Auto) (1.4-6.5) K/uL Lymph # (Auto) (1.2-3.4) K/uL [place] # (Auto) (0.24-0.82) K/uL Eos # (Auto) (0-0.50) K/uL Baso # (Auto) (0-0.2) K/uL Immature Gran # (Auto) (0.00-0.02) K/uL Sodium (136-145) mmol/L Potassium (3.5-5.1) mmol/L Chloride (98-107) mmol/L Carbon Dioxide (21-32) mmol/L Anion Gap (3-11) BUN (6-23) mg/dl Creatinine (0.6-1.2) mg/dl Est Cr Clr Drug Dosing ml/min Est GFR ( Amer) ml/min Est GFR (Non-Af Amer) ml/min BUN/Creatinine Ratio (10-20) Glucose (70-99(Fasting)) mg/dl Calcium (8.5-10.1) mg/dl Total Bilirubin (0.2-1.0) mg/dl AST (13-39) U/L ALT (7-52) U/L Alkaline Phosphatase (34-104) U/L Total Protein (6.0-8.3) gm/dl Albumin (3.4-5.0) gm/dl Globulin (2.5-4.0) gm/dl Albumin/Globulin Ratio (0.9-2) TSH (0.300-4.500) uIu/ml Urine Color Urine Appearance (Clear) Urine pH (4.5-7.5) Ur Specific [place] (1.000-1.030) Urine Protein (Negative) Urine Glucose (UA) (Negative) Urine Ketones (Negative) Urine Blood (Negative) Urine Nitrite (Negative) Urine Bilirubin (Negative) Urine Urobilinogen (Negative) Ur Leukocyte Esterase (Negative) Salicylates (3.0-30) mg/dl Urine Opiates Screen (Neg) Ur Methadone, Qual (Neg) Acetaminophen (10-30) ug/ml Urine Barbiturates (Neg) Ur Phencyclidine (PCP) (Neg) U Amphetamin/Meth Scrn (Neg) MDMA (Ecstasy) Screen (Neg) U Benzodiazepines Scrn (Neg) Ur Cocaine Metabolite (Neg) U Marijuana (THC) Screen (Neg) Ethyl Alcohol mg/dL 273.8 H (<10.0) mg/dl SARS-CoV-2, RNA, NAAT NEGATIVE (NEGATIVE) Administered Medications Discontinued Medications Acetaminophen (Acetaminophen 500 Mg Tab) 1,000 mg PO NOW STA Stop: 05/17/22 20:41 Last Admin: 05/17/22 20:49 Dose: 1,000 mg Documented By: HEVER Lorazepam (Lorazepam 1 Mg Tab) Confirm Administered Dose 1 mg .ROUTE .STK-MED ONE Stop: 05/17/22 22:18 Last Admin: 05/17/22 22:18 Dose: 1 mg Documented By: HEVER Lorazepam (Lorazepam 1 Mg Tab) 1 mg PO NOW STA Stop: 05/17/22 23:02 Last Admin: 05/17/22 23:12 Dose: 1 mg Documented By: EDD Ondansetron HCl (Ondansetron 4 Mg Od Tab) 4 mg PO NOW STA Stop: 05/17/22 17:14 Last Admin: 05/17/22 17:19 Dose: 4 mg Documented By: BRENDAN Ondansetron HCl (Ondansetron 4 Mg Od Tab) Confirm Administered Dose 4 mg .ROUTE .STK-MED ONE Stop: 05/17/22 22:17 Last Admin: 05/17/22 22:18 Dose: 4 mg Documented By: HEVER Discharge Plan Visit Data Chief Complaint: Mental Health Evaluation Stated Complaint: EMOTIONAL DISTRESS, MHID ED Provider: Keanu Andres Discharge Problem: Depression with suicidal ideation, Anxiety, Alcohol abuse, Alcoholic intoxication Patient Disposition: Still a Patient Forms Stand Alone Forms: My [facility], Suicide Prevention Resources Prescriptions Prescriptions: No Action estradiol 0.05 mg/24 hr patch semiweekly 1 patch topical 2XWK Rx Instructions: Friday and Friday trazodone 50 mg tablet 25 - 300 mg PO HS PRN (Reason: Sleep) dicyclomine 10 mg Capsule 10 mg PO TID PRN (Reason: pain) Qty: 15 0RF famotidine 20 mg Tablet 20 mg PO BID PRN (Reason: dyspepsia) Qty: 30 0RF pantoprazole 40 mg Tablet,Delayed Release (Dr/Ec) 40 mg PO QAM Qty: 30 0RF folic acid 1 mg Tablet 1 mg PO QAM Qty: 30 0RF thiamine HCl (vitamin B1) 100 mg Tablet 100 mg PO QAM Qty: 30 0RF glipizide 2.5 mg tablet extended release 24 hr 2.5 mg PO DAILY Qty: 30 0RF gabapentin 600 mg tablet 900 mg PO TID acetaminophen 500 mg Tablet 500 mg PO Q6H PRN (Reason: Pain) cyclobenzaprine 5 mg tablet 5 mg PO BID PRN (Reason: Muscle Spasm) desvenlafaxine succinate 100 mg tablet extended release 24 hr 100 mg PO QAM Referrals Referrals: Simona Lake DO [Primary Care Provider] - : Alcoholic intoxication Qualifiers: Complication of substance-induced condition: uncomplicated Qualified Code(s): F10.920 - Alcohol use, unspecified with intoxication, uncomplicated
[2022-05-17] MEDS ORDERED: ONDANSETRON 4 MG OD TAB PO STA (17:13)
[2022-05-17 20:06] LABS: Amphetamines+Metham, Urine Neg (Neg); Barbiturates, Urine Neg (Neg); Benzodiazepine, Urine Neg (Neg); Cocaine, Urine Neg (Neg); MDMA (Ecstacy), Urine Neg (Neg); Methadone, Urine Neg (Neg); Opiate, Urine Neg (Neg); Phencyclidine, Urine Neg (Neg)
[2022-05-17] MEDS ORDERED: ACETAMINOPHEN 500 MG TAB PO STA (20:40)
[2022-05-17] MEDS ORDERED: ONDANSETRON 4 MG OD TAB ONE (22:16)
[2022-05-17] MEDS ORDERED: LORazepam 1 MG TAB ONE (22:17)
[2022-05-17] MEDS ORDERED: LORazepam 1 MG TAB PO STA (23:01)
[2022-05-18] MEDS ORDERED: SODIUM CHLORIDE 0.65% NA SOLN 45 ML (OCEAN) PRN (01:07)
[2022-05-18] MEDS ORDERED: MAGNESIUM HYDROXIDE SUSP 30 ML UDC PO PRN (01:07)
[2022-05-18] MEDS ORDERED: ALUMINUM/MAGNESIUM SUSP 30 ML UDC PO PRN (01:07)
[2022-05-18] MEDS ORDERED: LORazepam 1 MG TAB PO PRN ×4 (01:07→01:46)
[2022-05-18] MEDS ORDERED: GABAPENTIN 600 MG TAB PO STA (01:13)
[2022-05-18] MEDS ORDERED: GABAPENTIN 300 MG CAP PO STA (01:14)
[2022-05-18] MEDS ORDERED: Ativan PO Alcohol Withdrawal--Active Protocol PO PRN (01:46)
[2022-05-18] MEDS ORDERED: FAMOTIDINE 20 MG TAB PO PRN (08:18)
[2022-05-18] MEDS: LORazepam 1 MG TAB PO PRN ×4 (10:14→22:40)
[2022-05-18] MEDS: PANTOprazole 40 MG TAB PO SCH (10:14)
[2022-05-18] MEDS: GABAPENTIN 600 MG TAB PO SCH ×3 (10:15→21:13)
[2022-05-18] MEDS: ONDANSETRON 2 MG OD TAB PO PRN (13:33)
--- NOTE | 2022-05-18 14:23 | History & Physical ---
Date of Service May 18, 2022 Impression / Recommendations Impression The patient is a 31 year old with a history of depression, anxiety, alcohol use, and BPAD who was admitted for worsening depression and SI with plan of drowning herself. Diagnostically consistent with unspecified depression-MDD versus alcohol-induced depression as well as RAFA with panic attacks and alcohol use disorder. The patient is deemed unstable and requires psychiatric hospitalization for diagnostic clarification, safety and stabilization, medication management and development of further coping skills. Discussed medication treatment options in detail. Discussed risks, benefits and alternatives. Patient would like to continue with Pristiq and gabapentin for now. Reviewed side effects including but not limited to: GI, HSU, sexual side effects with Pristiq and dizziness/sedation with gabapentin-reviewed gabapentin indications for alcohol use disorder and off-label use for anxiety but risks with combination with alcohol including potential for respiratory suppression. The patient's audit score and use history suggests problematic substance use. Brief intervention was offered and accepted. Intervention was greater than 5 minutes in length and included assessing readiness to quit, advice on how to reduce or abstain and to set a specific goal for this hospitalization. tray worker will also assist in anticipating barriers to reducing or abstaining from substance use and in problem-solving for solutions to those problems while arranging for referral to appropriate treatment. The patient is in contemplative stage with regards to transtheoretical model of change. The patient is advised to decrease consumption due to depressant effects and risk of interaction with prescription medications. She willing to consider outpatient substance use treatment and consideration of restarting naltrexone but does not desire residential treatment at this time. The patient agreed to consider outpatient treatment referrals for dual diagnosis therapy/IOP/groups and will be provided with recovery materials to continue to educate self on how to cope with their condition without using substances. (1) Depression with suicidal ideation: (2) Recurrent severe major depressive disorder with anxiety: (3) Generalized anxiety disorder with panic attacks: (4) Alcohol use disorder, severe, dependence: (5) Fibromyalgia: (6) Transaminitis: (7) DMII (diabetes mellitus, type 2): Plan 05/18/22: The patient was admitted to the [facility] ([facility]) on q15 min checks (behavioral with suicide precautions) for safety. The p atient will participate in group, recreational, and milieu therapies and will be offered additional individual and family sessions as clinically appropriate. -AWSS with thiamine and folic acid -Continue with prior to admission gabapentin and Pristiq -Consider trial of Wellbutrin once no longer scoring on AWSS, given risk for further lowering seizure threshold -Consider naltrexone as LFTs improve Inventory Assets Strengths: employed, good supports, motivated to seek treatment, has outpatient psych provider Needs: additional coping skills, additional outpatient support, avoidance of alcohol, consideration for medication adjustment Suicide Risk Level Suicide Risk Level: High-Moderate (q15 min suicide checks) Suicide Risk Level Comments: High-Moderate given depression with SI but feels safe here and able to safety contract to alert staff should she feel unsafe or should SI intensity or worsen or she feel unable to remain safe. Risk Factors Assessment : Yes Do You Have Access To A Gun?: No Mental Health Diagnoses: Yes Substance Use Disorders: Yes Previous Attempt: No Family History of Suicide: No Previous Psychiatric Hospitalization: Yes Hopelessness: Yes Protective Factors Assessment Employed: Yes ([employer]) Stable Relationships: Yes Supportive Family: Yes Good Rapport with Provider: Yes Psychiatric History Identifying Data ZEYAD CALLAWAY is a 31-year-old F who currently lives in [place] with her sister and niece, has a history of depression, anxiety, BPAD, and alcohol use disorder and was admitted on 05/18/22 00:25 on a 201 voluntary commitment for worsening depression and SI with plan. Chief Complaint "I'm just very on edge and my brain is constantly running". History of Present Illness Zeyad presents for psychiatric admission for worsening depression and SI with plan of drowning herself and was considering driving to a local stream to this end. She was intoxicated on arrival to the ED, though functioning fairly well, with initial level of 273 ethyl alcohol. She has been coping with severe depression and anxiety by drinking alcohol about 0.5 bottle of liquor daily with increased use in the last few weeks. She has no history of complicated withdrawals. She has been feeling increasingly depressed and anxious for the last few weeks and isn't sure why. She notes she had an argument with her sister, but it was over a small thing, and feels like her medication isn't working. Her [facility] provider increased her Pristiq dose from 50mg to 100mg about 1 month ago but she hasn't noticed any benefit so far. She continues with low energy, poor concentration, high anxiety and hopelessness and helplessness. She endorses ongoing SI without plan but notes "I just want to fade away". Reviewed and confirmed recent history per ED case management note from 05/17/22: "Zeyad presented to the ED via BLS from her work at [id number]. Per Zeyad, she ended her shift there today and didn't want to go home so she was just sitting in her car. A concerned citizen called the police regarding this. Zeyad admitted to suicidal ideations and stated that she has thoughts of drowning herself. Zeyad is apologetic throughout assessment and repeatedly devalues herself and her symptoms as stupid and silly. She states approximately two weeks ago she drove to a new [place] but did not do anything further to attempt suicide. Zeyad follows with [facility] for psychiatry and medication management and admits that she missed her last appointment and needs to reschedule but has been too depressed to do so. She reports medication compliance. She describes "feeling so down and so anxious" all of the time. She picks and scratches at her skin when feeling very anxious but denies it is with a goal of injuring herself. She is noted with scabs to her arms. She describes depressive symptoms of sadness, crying spells, self-devaluation, decreased concentration and decreased sleep. She states she hasn't gotten great sleep for the past few days and has laid in bed for over 24 hours without being able to fall asleep. She describes severe anxiety and panic attacks that give her tunnel vision and require her to lay down to get through them." She is currently prescribed psychiatric medications of Pristiq and Gabapentin. Psychiatric ROS notable for no current nor history of symptoms of psychosis, PTSD, OCD nor eating disorder. She denies any history of efra, thinks the BPAD diagnosis in the past was due to a family history of this, but has been on an SNRI without concurrent mood stabilizer without breakthrough efra. Past Psychiatric History Current Psychiatric Diagnosis: depression with SI, anxiety, bipolar Outpatient Services: [facility] for medication Previous Psych Admissions: October of [address] Hx [facility] [place] Do You Have Access To A Gun?: No History of Previous Suicide Attempt: No Past Medication Trials: "almost every" SSRI, Effexor, zyprexa, propranolol, mirtazapine, lorazepam, b uspar, lamictal Past Head Trauma/Neuro History History of Concussion/Seizure: No Allergies Allergy/AdvReac Type Severity Reaction Status Date / Time NSAIDS (Non-Steroidal Allergy Intermediate hives, Verified 02/22/22 12:41 Anti-Inflamma swelling Home Medications Medication Instructions Recorded Confirmed Type estradiol 0.05 mg/24 hr semiweekly 1 patch topical [id number] 07/19/21 05/18/22 History transdermal patch acetaminophen 500 mg tablet 500 mg PO Q6H PRN Pain 01/10/22 05/18/22 History cyclobenzaprine 5 mg tablet 5 mg PO BID PRN Muscle Spasm 01/10/22 02/16/22 History desvenlafaxine succinate 100 mg 100 mg PO QAM 01/10/22 05/18/22 History tablet,extended release 24 hr gabapentin 600 mg tablet 900 mg PO TID 01/10/22 05/18/22 History trazodone 50 mg tablet 25 - 300 mg PO HS PRN Sleep 02/16/22 05/18/22 History dicyclomine 10 mg capsule 10 mg PO TID PRN pain #15 caps 02/23/22 Rx famotidine 20 mg tablet 20 mg PO BID PRN dyspepsia #30 tabs 02/23/22 05/18/22 Rx folic acid 1 mg tablet 1 mg PO QAM #30 tabs 02/23/22 Rx glipizide 2.5 mg tablet, extended 2.5 mg PO DAILY #30 tabs 02/23/22 Rx release 24 hr pantoprazole 40 mg tablet,delayed 40 mg PO QAM #30 tabs 02/23/22 Rx release thiamine HCl (vitamin B1) 100 mg 100 mg PO QAM #30 tabs 02/23/22 Rx tablet dulaglutide 1.5 mg/0.5 mL mg subcut 05/18/22 History subcutaneous pen injector (Trulicity) lorazepam 0.5 mg tablet mg PRN Panic Attack(S) 05/18/22 History Family History Family History of: Bipolar Family Mental Health History Comment: brother and sister are diagnosed with Bipolar Alcohol History Hx of Alcohol Use Over the Past 12 Months: Yes (Half bottle of vodka, frequency varies) AUDIT Total Score: 28 Smoking Use Have You Smoked or Used Tobacco Products in the Last 30 Days: No Smoking Status: Never smoker Substance History Hx of Prescription Med Misuse Over the Past 12 Months: No Hx of Over the Counter Med Misuse Over the Past 12 Months: No Hx of Inhalent Misuse Over the Past 12 Months: No Hx of Organic Substance Use Over the Past 12 Months: No Hx of Illegal Substances/Street Drug Use Over Past 12 Months: No Problems as a Result of Past Substance Use: Life out of Control Personal History Living Arrangements: Apartment Born In: [facility]. Raised by both parents. Highest Grade Completed: High School Graduate Highest Grade Completed Comment: has 3 years of college at [employer] was majoring in [employer]. Employment Status: [employer] Employed ([employer] ) Marital Status: Single Number Of Children: 0 Beliefs That Will Affect Care: None Hx Legal Problems: No Hx Traumatic Life Events: No Patient History Medical History Acid reflux occasional Alcohol intoxication Anxiety Asthma controlled Endometriosis Fibromyalgia Obesity Surgical History Abscess of pelvis s/p surgical drainage History of appendectomy History of cholecystectomy History of colonoscopy History of endometrial ablation History of esophagogastroduodenoscopy (EGD) History of hysterectomy reported by patient in 2019 Hx of laparoscopy x3 (for endometriosis) Hx of removal of ovary Hx of tonsillectomy [place] teeth extracted Family History Mother Narcolepsy Crohn's disease Hypertension Gallbladder disease Father Diabetes Anxiety Hypertension Family history of reaction to anesthesia SLOW TO WAKE UP/PONV Brother Anxiety Sister Anxiety Grandmother (Paternal) Breast cancer Aunt Breast cancer Grandfather (Maternal) Stroke Grandfather (Paternal) Heart disease Denies family history of Ovarian cancer Prostate cancer Lung cancer Colorectal cancer Social History Smoking Status: Never smoker Second Hand Exposure: Yes (MOTHER SMOKES/SISTER SMOKES OUTSIDE); Hx Alcohol Use: Yes Alcohol type: hard liquor Hx Substance Use: No Preferred Language: Telugu Communication Ability: Effective Visual Impairment: Limited Hearing Ability: Normal Intensive Care Unit Nurse Required: No Beliefs That Will Affect Care: None marital status: Single Current Living Situation: Family Current Living Situation Comment: SISTER AND NEICE current occupational status: unemployed Feels Safe at Home: Yes Childhood Exposure to Second-Hand Smoke: No caffeine: No Dental Care, Regularly: Yes Physical Activity Frequency: Does not Exercise Seatbelt Use: always Sunscreen Use: Yes Assistive Devices: None Review of Systems Review of Systems: All systems reviewed & are unremarkable except as noted in HPI & below (nausea) Physical Exam 2 Psychiatric: Orientation: alert and oriented x 3 Apperance: appropriately dressed and appropriately groomed Eye Contact: good eye contact Motor Behavior: no abnormal motor movements Speech: normal rate/rhythm/volume of speech Affect: + depressed affect and + anxious affect Mood: + depressed mood and + anxious mood Thought Process: goal directed thought process Thought Content: reality based without delusions Suicidal Thoughts: denies suicidal plan and denies suicidal intent; + reports suicidal thoughts (ongoing SI but no plan since admission, feels safe here ) Homicidal Thoughts: denies homicidal thoughts Hallucinations: no auditory hallucinations and no visual hallucinations Cognition: recent memory grossly intact, remote memory grossly intact, attention grossly intact and language grossly intact Estimated Intelligence: consistent with education level Insight: + limited insight Judgement: + limited judgement Vital Signs (Past 24 Hours): Last Vital Signs Temp 36.8 C 05/18/22 13:54 Pulse 107 H 05/18/22 13:54 Resp 12 05/18/22 13:54 BP 135/92 05/18/22 13:54 Pulse Ox 97 05/18/22 13:54 O2 Del Method 05/18/22 13:54 Exam Statement: A physical exam was performed in the ED by Dr. Andres for the purposes of medical clearance. I accept that physical as correct and adequate for the purposes of the inpatient physical exam. Results & Data ([facility]) Laboratory Results Laboratory Results - last 24 hr 05/17/22 05/17/22 05/17/22 14:20 14:20 15:56 WBC 8.45 RBC 5.24 H Hgb 16.3 H Hct 47.4 H MCV 90.5 MCH 31.1 MCHC 34.4 RDW Std Deviation 44.4 RDW Coeff of Piotr 13.6 Plt Count 358 MPV 9.7 Immature Gran % (Auto) 0.2 Neut % (Auto) 44.9 Lymph % (Auto) 45.1 [place] % (Auto) 8.0 Eos % (Auto) 0.9 Baso % (Auto) 0.9 Neut # (Auto) 3.78 Lymph # (Auto) 3.81 H [place] # (Auto) 0.68 Eos # (Auto) 0.08 Baso # (Auto) 0.08 Immature Gran # (Auto) 0.02 Sodium Potassium Chloride Carbon Dioxide Anion Gap BUN Creatinine Est Cr Clr Drug Dosing Est GFR ( Amer) Est GFR (Non-Af Amer) BUN/Creatinine Ratio Glucose POC Glucose Calcium Total Bilirubin AST ALT Alkaline Phosphatase Total Protein Albumin Globulin Albumin/Globulin Ratio TSH Urine Color Yellow Urine Appearance Clear Urine pH 7.0 Ur Specific [place] 1.004 Urine Protein Negative Urine Glucose (UA) Negative Urine Ketones Negative Urine Blood Negative Urine Nitrite Negative Urine Bilirubin Negative Urine Urobilinogen Negative Ur Leukocyte Esterase Negative Salicylates Urine Opiates Screen Neg Ur Methadone, Qual Neg Acetaminophen Urine Barbiturates Neg Ur Phencyclidine (PCP) Neg U Amphetamin/Meth Scrn Neg MDMA (Ecstasy) Screen Neg U Benzodiazepines Scrn Neg Ur Cocaine Metabolite Neg U Marijuana (THC) Screen Neg Ethyl Alcohol mg/dL SARS-CoV-2, RNA, NAAT 05/17/22 05/17/22 05/17/22 15:56 15:56 15:56 WBC RBC Hgb Hct MCV MCH MCHC RDW Std Deviation RDW Coeff of Piotr Plt Count MPV Immature Gran % (Auto) Neut % (Auto) Lymph % (Auto) [place] % (Auto) Eos % (Auto) Baso % (Auto) Neut # (Auto) Lymph # (Auto) [place] # (Auto) Eos # (Auto) Baso # (Auto) Immature Gran # (Auto) Sodium 144 Potassium 3.8 Chloride 106 Carbon Dioxide 29 Anion Gap 9 BUN 6 Creatinine 0.69 Est Cr Clr Drug Dosing 117.4 Est GFR ( Amer) 133.5 Est GFR (Non-Af Amer) 115.2 BUN/Creatinine Ratio 8.7 L Glucose 106 H POC Glucose Calcium 9.5 Total Bilirubin 0.4 AST 230 H ALT 206 H Alkaline Phosphatase 89 Total Protein 7.9 Albumin 5.0 Globulin 2.9 Albumin/Globulin Ratio 1.7 TSH 0.740 Urine Color Urine Appearance Urine pH Ur Specific [place] Urine Protein Urine Glucose (UA) Urine Ketones Urine Blood Urine Nitrite Urine Bilirubin Urine Urobilinogen Ur Leukocyte Esterase Salicylates < 3.0 L Urine Opiates Screen Ur Methadone, Qual Acetaminophen < 3 L Urine Barbiturates Ur Phencyclidine (PCP) U Amphetamin/Meth Scrn MDMA (Ecstasy) Screen U Benzodiazepines Scrn Ur Cocaine Metabolite U Marijuana (THC) Screen Ethyl Alcohol mg/dL SARS-CoV-2, RNA, NAAT 05/17/22 05/17/22 05/18/22 15:56 19:51 09:40 WBC RBC Hgb Hct MCV MCH MCHC RDW Std Deviation RDW Coeff of Piotr Plt Count MPV Immature Gran % (Auto) Neut % (Auto) Lymph % (Auto) [place] % (Auto) Eos % (Auto) Baso % (Auto) Neut # (Auto) Lymph # (Auto) [place] # (Auto) Eos # (Auto) Baso # (Auto) Immature Gran # (Auto) Sodium Potassium Chloride Carbon Dioxide Anion Gap BUN Creatinine Est Cr Clr Drug Dosing Est GFR ( Amer) Est GFR (Non-Af Amer) BUN/Creatinine Ratio Glucose POC Glucose 115 H Calcium Total Bilirubin AST ALT Alkaline Phosphatase Total Protein Albumin Globulin Albumin/Globulin Ratio TSH Urine Color Urine Appearance Urine pH Ur Specific [place] Urine Protein Urine Glucose (UA) Urine Ketones Urine Blood Urine Nitrite Urine Bilirubin Urine Urobilinogen Ur Leukocyte Esterase Salicylates Urine Opiates Screen Ur Methadone, Qual Acetaminophen Urine Barbiturates Ur Phencyclidine (PCP) U Amphetamin/Meth Scrn MDMA (Ecstasy) Screen U Benzodiazepines Scrn Ur Cocaine Metabolite U Marijuana (THC) Screen Ethyl Alcohol mg/dL 273.8 H SARS-CoV-2, RNA, NAAT NEGATIVE Current Inpatient Medications Current Inpatient Medications: Current Inpatient Medications Al Hydrox/Mg Hydrox/Simethicone (Aluminum/Magnesium Susp 30 Ml Udc) 30 ml PO Q4H PRN PRN Reason: GI Upset Stop: 06/17/22 01:06 Last Admin: 05/18/22 10:14 Dose: 30 ml Famotidine (Famotidine 20 Mg Tab) 20 mg PO BID PRN PRN Reason: dyspepsia Stop: 06/17/22 08:17 Gabapentin (Gabapentin 600 Mg Tab) 900 mg PO TID NAE Stop: 06/17/22 08:59 Last Admin: 05/18/22 10:15 Dose: 900 mg Hydroxyzine HCl (Hydroxyzine Hcl 25 Mg Tab) 50 mg PO HSZ PRN PRN Reason: Insomnia Stop: 06/17/22 01:06 Hydroxyzine HCl (Hydroxyzine Hcl 25 Mg Tab) 25 mg PO Q4H PRN PRN Reason: Anxiety Stop: 06/17/22 01:06 Lorazepam (Lorazepam 1 Mg Tab) 1 mg PO UD PRN; Protocol PRN Reason: EtOH Withdrawal AWSS Score 6,7 Stop: 06/17/22 01:45 Last Admin: 05/18/22 12:00 Dose: 1 mg Lorazepam (Lorazepam 1 Mg Tab) 3 mg PO ONCE PRN; Protocol PRN Reason: EtOH Withdrawal AWSS Score 10 & above Lorazepam (Lorazepam 1 Mg Tab) 2 mg PO UD PRN; Protocol PRN Reason: EtOH Withdrawal AWSS Score 8,9 Stop: 06/17/22 01:45 Magnesium Hydroxide (Magnesium Hydroxide Susp 30 Ml Udc) 30 ml PO DAILY PRN PRN Reason: Constipation Stop: 06/17/22 01:06 Miscellaneous (Desvenlafaxine-Order Awaiting Action) 1 each N/A QS NAE Stop: 06/17/22 10:14 Miscellaneous (Estradiol Patch- Order Awaiting Action) 1 each N/A QS [facility] Stop: 06/17/22 10:14 Ondansetron HCl (Ondansetron 2 Mg Od Tab) 2 mg PO Q8H PRN PRN Reason: Nausea Stop: 06/17/22 12:31 Last Admin: 05/18/22 13:33 Dose: 2 mg Pantoprazole Sodium (Pantoprazole 40 Mg Tab) 40 mg PO QAM NAE Stop: 06/17/22 08:59 Last Admin: 05/18/22 10:14 Dose: 40 mg Sodium Chloride (Sodium Chloride 0.65% Na Soln 45 Ml ([place])) 1 - 2 sprays NA PRN PRN PRN Reason: Nasal Dryness/Congestion Stop: 06/17/22 01:06
[2022-05-18] MEDS: THIAMINE HCL 100 MG TAB PO SCH (18:01)
[2022-05-18] MEDS: FOLIC ACID 1 MG TAB PO SCH (18:01)
[2022-05-19] MEDS: ONDANSETRON 2 MG OD TAB PO PRN (06:33)
[2022-05-19] MEDS: GABAPENTIN 600 MG TAB PO SCH ×3 (08:50→22:18)
[2022-05-19] MEDS: THIAMINE HCL 100 MG TAB PO SCH (08:51)
[2022-05-19] MEDS: PANTOprazole 40 MG TAB PO SCH (08:51)
[2022-05-19] MEDS: FOLIC ACID 1 MG TAB PO SCH (08:51)
--- NOTE | 2022-05-19 09:13 | Psychiatric Progress Note ---
Date of Service May 19, 2022 Impression / Recommendations Impression The patient is a 31 year old with a history of depression, anxiety, alcohol use, and BPAD who was admitted for worsening depression and SI with plan of drowning herself. Diagnostically consistent with unspecified depression-MDD versus alcohol-induced depression as well as RAFA with panic attacks and alcohol use disorder. The patient is deemed unstable and requires psychiatric hospitalization for diagnostic clarification, safety and stabilization, medication management and development of further coping skills. 05/19/22: Remains severely depressed with SI, shame and feels like a burden to her family. Her sister has been unable to drop off her non-formulary medications so discontinued plan to discontinue Pristiq rather than taper at this point since it's been multiple days without and she wants to try Wellbutrin instead once through alcohol withdrawal. Tolerating gabapentin. Continues to require frequent doses of ativan per AWSS for alcohol withdrawal. (1) Depression with suicidal ideation: (2) Recurrent severe major depressive disorder with anxiety: (3) Generalized anxiety disorder with panic attacks: (4) Alcohol use disorder, severe, dependence: (5) Fibromyalgia: (6) Transaminitis: (7) DMII (diabetes mellitus, type 2): Plan 05/19/22: Discontinue Pristiq. Continue with AWSS. 05/18/22: The patient was admitted to the [facility] ([facility] mental health unit) on q15 min checks (behavioral with suicide precautions) for safety. The patient will participate in group, recreational, and milieu therapies and will be offered additional individual and family sessions as clinically appropriate. -AWSS with thiamine and folic acid -Continue with prior to admission gabapentin and Pristiq -Consider trial of Wellbutrin once no longer scoring on AWSS, given risk for further lowering seizure threshold -Consider naltrexone as LFTs improve Inventory Assets Strengths: employed, good supports, motivated to seek treatment, has outpatient psych provider Needs: additional coping skills, additional outpatient support, avoidance of alcohol, consideration for medication adjustment Suicide Risk Level Suicide Risk Level: High-Moderate (q15 min suicide checks) Suicide Risk Level Comments: High-Moderate given depression with SI but feels safe here and able to safety contract to alert staff should she feel unsafe or should SI intensity or worsen or she feel unable to remain safe. Risk Factors Assessment : Yes Do You Have Access To A Gun?: No Mental Health Diagnoses: Yes Substance Use Disorders: Yes Previous Attempt: No Family History of Suicide: No Previous Psychiatric Hospitalization: Yes Hopelessness: Yes Protective Factors Assessment Employed: Yes ([employer]) Stable Relationships: Yes Supportive Family: Yes Good Rapport with Provider: Yes Interval History Identifying Information ZEYAD CALLAWAY is a 31-year-old F who currently lives in [place] with her sister and niece, has a history of depression, anxiety, BPAD, and alcohol use disorder and was admitted on 05/18/22 00:25 on a 201 voluntary commitment for worsening depression and SI with plan. Chief Complaint "I feel like it would be easier on my family if I wasn't here". Review of Systems Sleep Information Total Hours of Sleep: 7 Sleep Comments: admitted around 0100 Meal Information Percent Meal Consumed - Breakfast: 100 Percent Meal Consumed - Lunch: 50 Percent Meal Consumed - Dinner: 100 Subjective Subjective Patient was seen & assessed and interval progress reviewed with treatment team nursing and social work. Still scoring on AWSS with elevated BP, nausea. Getting ativan per AWSS scale and zofran for nausea. Attended group last evening and ate all her dinner. Ate more meals again today. Remains with significant symptoms of alcohol withdrawal including HSU, high anxiety and nausea. Still feeling very depressed like she is a burden to her family and that they would be better off if she was . Continues to have active SI. Notes that "it's constantly loud in my head" with anxious thoughts. Slept fairly well last night. Physical Exam Psychiatric Orientation: alert and oriented x 3 Apperance: appropriately dressed and appropriately groomed Eye Contact: good eye contact Motor Behavior: no abnormal motor movements Speech: normal rate/rhythm/volume of speech Affect: + depressed affect, + anxious affect and + tearful affect Mood: + depressed mood and + anxious mood Thought Process: goal directed thought process Thought Content: reality based without delusions Suicidal Thoughts: denies suicidal plan and denies suicidal intent; + reports suicidal thoughts (ongoing SI but no plan since admission, feels safe here ) Homicidal Thoughts: denies homicidal thoughts Hallucinations: no auditory hallucinations and no visual hallucinations Cognition: recent memory grossly intact, remote memory grossly intact, attention grossly intact and language grossly intact Estimated Intelligence: consistent with education level Insight: + limited insight Judgement: + limited judgement Vital Signs (Past 24 Hours) Last Vital Signs Temp 36.3 C L 05/19/22 06:00 Pulse 84 05/19/22 06:43 Resp 18 05/19/22 06:00 BP 130/89 05/19/22 06:43 Pulse Ox 98 05/18/22 17:54 O2 Del Method 05/18/22 17:54 Results & Data ([facility]) Laboratory Results Laboratory Results - last 24 hr 05/18/22 05/19/22 09:40 06:42 POC Glucose 115 H 123 H Current Inpatient Medications Current Inpatient Medications: Current Inpatient Medications Al Hydrox/Mg Hydrox/Simethicone (Aluminum/Magnesium Susp 30 Ml Udc) 30 ml PO Q4H PRN PRN Reason: GI Upset Stop: 06/17/22 01:06 Last Admin: 05/18/22 10:14 Dose: 30 ml Famotidine (Famotidine 20 Mg Tab) 20 mg PO BID PRN PRN Reason: dyspepsia Stop: 06/17/22 08:17 Folic Acid (Folic Acid 1 Mg Tab) 1 mg PO QAM NAE Stop: 06/17/22 08:59 Last Admin: 05/19/22 08:51 Dose: 1 mg Gabapentin (Gabapentin 600 Mg Tab) 900 mg PO TID NAE Stop: 06/17/22 08:59 Last Admin: 05/19/22 08:50 Dose: 900 mg Hydroxyzine HCl (Hydroxyzine Hcl 25 Mg Tab) 50 mg PO HSZ PRN PRN Reason: Insomnia Stop: 06/17/22 01:06 Hydroxyzine HCl (Hydroxyzine Hcl 25 Mg Tab) 25 mg PO Q4H PRN PRN Reason: Anxiety Stop: 06/17/22 01:06 Lorazepam (Lorazepam 1 Mg Tab) 1 mg PO UD PRN; Protocol PRN Reason: EtOH Withdrawal AWSS Score 6,7 Stop: 06/17/22 01:45 Last Admin: 05/18/22 22:40 Dose: 1 mg Lorazepam (Lorazepam 1 Mg Tab) 3 mg PO ONCE PRN; Protocol PRN Reason: EtOH Withdrawal AWSS Score 10 & above Lorazepam (Lorazepam 1 Mg Tab) 2 mg PO UD PRN; Protocol PRN Reason: EtOH Withdrawal AWSS Score 8,9 Stop: 06/17/22 01:45 Magnesium Hydroxide (Magnesium Hydroxide Susp 30 Ml Udc) 30 ml PO DAILY PRN PRN Reason: Constipation Stop: 06/17/22 01:06 Miscellaneous (Desvenlafaxine-Order Awaiting Action) 1 each N/A QS NAE Stop: 06/17/22 10:14 Last Admin: 05/19/22 02:33 Dose: Not Given Miscellaneous (Estradiol Patch- Order Awaiting Action) 1 each N/A QS NAE Stop: 06/17/22 10:14 Last Admin: 05/19/22 02:33 Dose: Not Given Miscellaneous (*Trulicity*Order Awaiting Action) 1 each N/A QS NAE Stop: 06/18/22 00:00 Last Admin: 05/19/22 02:33 Dose: Not Given Ondansetron HCl (Ondansetron 2 Mg Od Tab) 2 mg PO Q8H PRN PRN Reason: Nausea Stop: 06/17/22 12:31 Last Admin: 05/19/22 06:33 Dose: 2 mg Pantoprazole Sodium (Pantoprazole 40 Mg Tab) 40 mg PO QAM [facility] Stop: 06/17/22 08:59 Last Admin: 05/19/22 08:51 Dose: 40 mg Sodium Chloride (Sodium Chloride 0.65% Na Soln 45 Ml ([place])) 1 - 2 sprays NA PRN PRN PRN Reason: Nasal Dryness/Congestion Stop: 06/17/22 01:06 Thiamine HCl (Thiamine Hcl 100 Mg Tab) [facility] Stop: 06/17/22 08:59 Last Admin: 05/19/22 08:51 Dose: 100 mg Mental Health & Subst Abuse Tx Psychiatrist Name of Psychiatrist: Dionne (WILL NEED APPT. SCHEDULED) Psychiatrist's Psychiatric Appointment Comment: [address] [place], [place] Therapist Name of Therapist: Katja (WILL MAKE REFERRAL FOR IOP) Therapist's Therapy Appointment Comment: [address], [address], [place], [place] Post Discharge Appointments Primary Care Physician Name Of Family Doctor: Valerio Hoffmann (WILL NEED FOLLOW UP APPT.) Primary Care Provider Appointment Comment: [facility] office Contact Information Discharge Discharge Address: [address] [place], [place] [address], [place] [address]
[2022-05-19] MEDS: LORazepam 1 MG TAB PO PRN ×4 (10:15→20:01)
[2022-05-19] MEDS: hydrOXYzine HCl 25 MG TAB PO PRN (22:21)
--- NOTE | 2022-05-20 08:54 | Psychiatric Progress Note ---
Date of Service May 20, 2022 Impression / Recommendations Impression The patient is a 31 year old with a history of depression, anxiety, alcohol use, and BPAD who was admitted for worsening depression and SI with plan of drowning herself. Diagnostically consistent with unspecified depression-MDD versus alcohol-induced depression as well as RAFA with panic attacks and alcohol use disorder. The patient is deemed unstable and requires psychiatric hospitalization for diagnostic clarification, safety and stabilization, medication management and development of further coping skills. 05/20/22: Continues to have significant depression with suicidal ideation hopelessness and helplessness. Continuing to actively withdraw from alcohol with periods of very high blood pressure and tachycardia but which responded well to Ativan per AWSS protocol. Remains at high acute risk of self-harm and unable to safely function outside of the inpatient setting. (1) Depression with suicidal ideation: (2) Recurrent severe major depressive disorder with anxiety: (3) Generalized anxiety disorder with panic attacks: (4) Alcohol use disorder, severe, dependence: (5) Fibromyalgia: (6) Transaminitis: (7) DMII (diabetes mellitus, type 2): Plan 05/20/22: Continues to score on AWSS. Recheck LFTs tomorrow. 05/19/22: Discontinue Pristiq. Continue with AWSS. 05/18/22: The patient was admitted to the [facility] ([facility] mental health unit) on q15 min checks (behavioral with suicide precautions) for safety. The patient will participate in group, recreational, and milieu therapies and will be offered additional individual and family sessions as clinically appropriate. -AWSS with thiamine and folic acid -Continue with prior to admission gabapentin and Pristiq -Consider trial of Wellbutrin once no longer scoring on AWSS, given risk for further lowering seizure threshold -Consider naltrexone as LFTs improve Inventory Assets Strengths: employed, good supports, motivated to seek treatment, has outpatient psych provider Needs: additional coping skills, additional outpatient support, avoidance of alcohol, consideration for medication adjustment Suicide Risk Level Suicide Risk Level: High-Moderate (q15 min suicide checks) Suicide Risk Level Comments: High-Moderate given depression with SI but feels safe here and able to safety contract to alert staff should she feel unsafe or should SI intensity or worsen or she feel unable to remain safe. Risk Factors Assessment : Yes Do You Have Access To A Gun?: No Mental Health Diagnoses: Yes Substance Use Disorders: Yes Previous Attempt: No Family History of Suicide: No Previous Psychiatric Hospitalization: Yes Hopelessness: Yes Protective Factors Assessment Employed: Yes ([employer]) Stable Relationships: Yes Supportive Family: Yes Good Rapport with Provider: Yes Interval History Identifying Information ZEYAD CALLAWAY is a 31-year-old F who currently lives in [place] with her sister and niece, has a history of depression, anxiety, BPAD, and alcohol use disorder and was admitted on 05/18/22 00:25 on a 201 voluntary commitment for worsening depression and SI with plan. Chief Complaint "I just keep wondering to myself 'how are you going to do this'?". Review of Systems Sleep Information Total Hours of Sleep: 7 Sleep Comments: admitted around 0100 Meal Information Percent Meal Consumed - Breakfast: 50 Percent Meal Consumed - Lunch: 100 Percent Meal Consumed - Dinner: 100 Subjective Subjective Patient was seen & assessed and interval progress reviewed with treatment team nursing and social work. Continues to score on AWSS with high blood pressure but improves following ativan dosing per protocol. This morning scored 0 and vitals are normal but then required further ativan later in the morning. Continues to use zofran prn for nausea. May continues to feel very depressed endorses amara oing suicidal ideation noting that she has been questioning how are you going to do this" in regards to getting better and moving on with her life. She continues to have significant physical symptoms related to alcohol withdraw noting nausea, high anxiety" and all over weird feeling" as well as feeling "very very tired". She continues to sleep on and off throughout the night and feels she is sleeping fairly well but remains very tired during the day. He has also not had a bowel movement in multiple days and we discussed medication options to help with this which she would like to try. She feels guilt that she cannot participate more actively in some of the inpatient psychiatry programming due to feeling ill but notes she is trying her best and we reviewed the typical course for alcohol withdrawal and that it can take some time and prays that she has been eating meals and trying to shower every day as initial goals. Her sister has not been able to bring in her Trulicity or estrogen patch yet but should be doing this soon. Physical Exam Psychiatric Orientation: alert and oriented x 3 Apperance: appropriately dressed and appropriately groomed Eye Contact: good eye contact Motor Behavior: no abnormal motor movements Speech: normal rate/rhythm/volume of speech Affect: + depressed affect, + anxious affect and + tearful affect Mood: + depressed mood and + anxious mood Thought Process: goal directed thought process Thought Content: reality based without delusions Suicidal Thoughts: denies suicidal plan and denies suicidal intent; + reports suicidal thoughts (ongoing SI but no plan since admission, feels safe here ) Homicidal Thoughts: denies homicidal thoughts Hallucinations: no auditory hallucinations and no visual hallucinations Cognition: recent memory grossly intact, remote memory grossly intact, attention grossly intact and language grossly intact Estimated Intelligence: consistent with education level Insight: + limited insight Judgement: + limited judgement Vital Signs (Past 24 Hours) Last Vital Signs Temp 36.8 C 05/20/22 06:00 Pulse 92 H 05/20/22 06:39 Resp 18 05/20/22 06:00 BP 127/89 05/20/22 06:39 Pulse Ox 99 05/19/22 16:33 O2 Del Method 05/19/22 16:33 Results & Data ([facility]) Laboratory Results Laboratory Results - last 24 hr 05/20/22 06:27 POC Glucose 127 H Current Inpatient Medications Current Inpatient Medications: Current Inpatient Medications Al Hydrox/Mg Hydrox/Simethicone (Aluminum/Magnesium Susp 30 Ml Udc) 30 ml PO Q4H PRN PRN Reason: GI Upset Stop: 06/17/22 01:06 Last Admin: 05/18/22 10:14 Dose: 30 ml Famotidine (Famotidine 20 Mg Tab) 20 mg PO BID PRN PRN Reason: dyspepsia Stop: 06/17/22 08:17 Folic Acid (Folic Acid 1 Mg Tab) 1 mg PO QAM NAE Stop: 06/17/22 08:59 Last Admin: 05/19/22 08:51 Dose: 1 mg Gabapentin (Gabapentin 600 Mg Tab) 900 mg PO TID NAE Stop: 06/17/22 08:59 Last Admin: 05/19/22 22:18 Dose: 900 mg Hydroxyzine HCl (Hydroxyzine Hcl 25 Mg Tab) 50 mg PO HSZ PRN PRN Reason: Insomnia Stop: 06/17/22 01:06 Last Admin: 05/19/22 22:21 Dose: 50 mg Hydroxyzine HCl (Hydroxyzine Hcl 25 Mg Tab) 25 mg PO Q4H PRN PRN Reason: Anxiety Stop: 06/17/22 01:06 Lorazepam (Lorazepam 1 Mg Tab) 1 mg PO UD PRN; Protocol PRN Reason: EtOH Withdrawal AWSS Score 6,7 Stop: 06/17/22 01:45 Last Admin: 05/19/22 20:01 Dose: 1 mg Lorazepam (Lorazepam 1 Mg Tab) 3 mg PO ONCE PRN; Protocol PRN Reason: EtOH Withdrawal AWSS Score 10 & above Lorazepam (Lorazepam 1 Mg Tab) 2 mg PO UD PRN; Protocol PRN Reason: EtOH Withdrawal AWSS Score 8,9 Stop: 06/17/22 01:45 Magnesium Hydroxide (Magnesium Hydroxide Susp 30 Ml Udc) 30 ml PO DAILY PRN PRN Reason: Constipation Stop: 06/17/22 01:06 Miscellaneous (Estradiol Patch- Order Awaiting Action) 1 each N/A QS NAE Stop: 06/17/22 10:14 Last Admin: 05/19/22 02:33 Dose: Not Given Miscellaneous (*Trulicity*Order Awaiting Action) 1 each N/A QS NAE Stop: 06/18/22 00:00 Last Admin: 05/19/22 02:33 Dose: Not Given Ondansetron HCl (Ondansetron 2 Mg Od Tab) 2 mg PO Q6H PRN PRN Reason: Nausea Stop: 06/17/22 12:31 Pantoprazole Sodium (Pantoprazole 40 Mg Tab) 40 mg PO QAM [facility] Stop: 06/17/22 08:59 Last Admin: 05/19/22 08:51 Dose: 40 mg Sodium Chloride (Sodium Chloride 0.65% Na Soln 45 Ml ([place])) 1 - 2 sprays NA PRN PRN PRN Reason: Nasal Dryness/Congestion Stop: 06/17/22 01:06 Thiamine HCl (Thiamine Hcl 100 Mg Tab) 100 mg PO QAM [facility] Stop: 06/17/22 08:59 Last Admin: 05/19/22 08:51 Dose: 100 mg Mental Health & Subst Abuse Tx Psychiatrist Name of Psychiatrist: Dionne (WILL NEED APPT. SCHEDULED) Psychiatrist's Psychiatric Appointment Comment: [address] [place], [place] Therapist Name of Therapist: Katja (WILL MAKE REFERRAL FOR IOP) Therapist's Therapy Appointment Comment: [address], [address], [place], [place] Post Discharge Appointments Primary Care Physician Name Of Family Doctor: Valerio Hoffmann (WILL NEED FOLLOW UP APPT.) Primary Care Provider Appointment Comment: [facility] office Contact Information Discharge Discharge Address: [address] [place] [address] [place], [place] [address]
[2022-05-20] MEDS: GABAPENTIN 600 MG TAB PO SCH ×3 (09:05→21:01)
[2022-05-20] MEDS: THIAMINE HCL 100 MG TAB PO SCH (09:06)
[2022-05-20] MEDS: PANTOprazole 40 MG TAB PO SCH (09:06)
[2022-05-20] MEDS: FOLIC ACID 1 MG TAB PO SCH (09:07)
[2022-05-20] MEDS: LORazepam 1 MG TAB PO PRN ×2 (09:47→13:43)
[2022-05-20] MEDS: ONDANSETRON 2 MG OD TAB PO PRN (15:48)
[2022-05-20] MEDS ORDERED: DOCUSATE SODIUM 100 MG CAP PO PRN (17:03)
[2022-05-20] MEDS ORDERED: POLYETHYLENE (MIRALAX) 17 GM PACK PO PRN (17:03)
[2022-05-20] MEDS ORDERED: DULAGLUTIDE 1.5 MG/0.5 ML PEN SQ SCH (18:30)
[2022-05-20] MEDS: DOCUSATE SODIUM 100 MG CAP PO SCH (20:59)
[2022-05-21] MEDS: ONDANSETRON 2 MG OD TAB PO PRN ×2 (07:45→18:34)
[2022-05-21 08:25] LABS: Alanine Aminotransferase 213 U/L (7-52); Aspartate Aminotransferase 175 U/L (13-39)
[2022-05-21] MEDS: GABAPENTIN 600 MG TAB PO SCH ×3 (08:37→21:22)
[2022-05-21] MEDS: FOLIC ACID 1 MG TAB PO SCH (09:30)
[2022-05-21] MEDS: DOCUSATE SODIUM 100 MG CAP PO SCH ×2 (09:30→21:22)
[2022-05-21] MEDS: PANTOprazole 40 MG TAB PO SCH (09:30)
[2022-05-21] MEDS: THIAMINE HCL 100 MG TAB PO SCH (09:30)
[2022-05-21] MEDS: hydrOXYzine HCl 25 MG TAB PO PRN ×4 (10:39→22:18)
[2022-05-21] MEDS: POLYETHYLENE (MIRALAX) 17 GM PACK PO SCH (17:38)
--- NOTE | 2022-05-21 18:03 | Psychiatric Progress Note ---
Date of Service May 21, 2022 Impression / Recommendations Impression The patient is a 31 year old with a history of depression, anxiety, alcohol use, and BPAD who was admitted for worsening depression and SI with plan of drowning herself. Diagnostically consistent with unspecified depression-MDD versus alcohol-induced depression as well as RAFA with panic attacks and alcohol use disorder. The patient is deemed unstable and requires psychiatric hospitalization for diagnostic clarification, safety and stabilization, medication management and development of further coping skills. 05/21/22: Continues to have severe depression with suicidal ideation hopelessness and helplessness and worsening anxiety as no longer getting ativan today as not scoring on AWSS today so far. LFTs remain high and elevated. Remains at high acute risk of self-harm and unable to safely function outside of the inpatient setting. (1) Depression with suicidal ideation: (2) Recurrent severe major depressive disorder with anxiety: (3) Generalized anxiety disorder with panic attacks: (4) Alcohol use disorder, severe, dependence: (5) Fibromyalgia: (6) Transaminitis: (7) DMII (diabetes mellitus, type 2): Plan 05/21/22: Continuing with AWSS. May attempt to start Wellbutrin tomorrow if vitals remain stable and no scoring overnight. 05/20/22: Continues to score on AWSS. Recheck LFTs tomorrow. 05/19/22: Discontinue Pristiq. Continue with AWSS. 05/18/22: The patient was admitted to the [facility] ([facility]) on q15 min checks (behavioral with suicide precautions) for safety. The patient will participate in group, recreational, and milieu therapies and will be offered additional individual and family sessions as clinically appropriate. -AWSS with thiamine and folic acid -Continue with prior to admission gabapentin and Pristiq -Consider trial of Wellbutrin once no longer scoring on AWSS, given risk for further lowering seizure threshold -Consider naltrexone as LFTs improve Inventory Assets Strengths: employed, good supports, motivated to seek treatment, has outpatient psych provider Needs: additional coping skills, additional outpatient support, avoidance of alcohol, consideration for medication adjustment Suicide Risk Level Suicide Risk Level: High-Moderate (q15 min suicide checks) Suicide Risk Level Comments: High-Moderate given depression with SI but feels safe here and able to safety contract to alert staff should she feel unsafe or should SI intensity or worsen or she feel unable to remain safe. Risk Factors Assessment : Yes Do You Have Access To A Gun?: No Mental Health Diagnoses: Yes Substance Use Disorders: Yes Previous Attempt: No Family History of Suicide: No Previous Psychiatric Hospitalization: Yes Hopelessness: Yes Protective Factors Assessment Employed: Yes ([employer]) Stable Relationships: Yes Supportive Family: Yes Good Rapport with Provider: Yes Interval History Identifying Information ZEYAD CALLAWAY is a 31-year-old F who currently lives in [place] with her sister and niece, has a history of depression, anxiety, BPAD, and alcohol use disorder and was admitted on 05/18/22 00:25 on a 201 voluntary commitment for w orsening depression and SI with plan. Chief Complaint "I'm just so so anxious". Review of Systems Sleep Information Total Hours of Sleep: 7 Sleep Comments: admitted around 0100 Meal Information Percent Meal Consumed - Breakfast: 0 Percent Meal Consumed - Lunch: 100 Percent Meal Consumed - Dinner: 95 Nutrition Comment: nausea Subjective Subjective Patient was seen & assessed and interval progress reviewed with treatment team nursing and social work. Still scoring last night on AWSS. Nausea and emesis this morning but improved during the course of the day. She suspects it might have been due to her Trulicity as it sometimes causes this effect. Continues to feel very anxious and depressed with tearfulness throughout our discussion. Reviewed LFTs which remain elevated. Vital signs have been more stable today, has not required ativan per AWSS yet today. Physical Exam Psychiatric Orientation: alert and oriented x 3 Apperance: appropriately dressed and appropriately groomed Eye Contact: good eye contact Motor Behavior: no abnormal motor movements Speech: normal rate/rhythm/volume of speech Affect: + depressed affect, + anxious affect and + tearful affect Mood: + depressed mood and + anxious mood Thought Process: goal directed thought process Thought Content: reality based without delusions Suicidal Thoughts: denies suicidal plan and denies suicidal intent; + reports suicidal thoughts (ongoing SI but no plan since admission, feels safe here ) Homicidal Thoughts: denies homicidal thoughts Hallucinations: no auditory hallucinations and no visual hallucinations Cognition: recent memory grossly intact, remote memory grossly intact, attention grossly intact and language grossly intact Estimated Intelligence: consistent with education level Insight: + limited insight Judgement: + limited judgement Vital Signs (Past 24 Hours) Last Vital Signs Temp 36.9 C 05/21/22 14:10 Pulse 93 H 05/21/22 14:10 Resp 16 05/21/22 14:10 BP 127/88 05/21/22 14:10 Pulse Ox 97 05/21/22 14:10 O2 Del Method 05/21/22 14:10 Results & Data ([facility]) Laboratory Results Laboratory Results - last 24 hr 05/21/22 05/21/22 07:33 07:41 POC Glucose 118 H AST 175 H ALT 213 H Current Inpatient Medications Current Inpatient Medications: Current Inpatient Medications Al Hydrox/Mg Hydrox/Simethicone (Aluminum/Magnesium Susp 30 Ml Udc) 30 ml PO Q4H PRN PRN Reason: GI Upset Stop: 06/17/22 01:06 Last Admin: 05/18/22 10:14 Dose: 30 ml Docusate Sodium (Docusate Sodium 100 Mg Cap) 100 mg PO BID [facility] Stop: 06/19/22 20:59 Last Admin: 05/21/22 09:30 Dose: Not Given Dulaglutide (Dulaglutide 1.5 Mg/0.5 Ml Pen) 1.5 mg SQ Mo@0900 [facility] Stop: 06/19/22 18:29 Last Admin: 05/20/22 21:02 Dose: 1.5 mg Famotidine (Famotidine 20 Mg Tab) 20 mg PO BID PRN PRN Reason: dyspepsia Stop: 06/17/22 08:17 Folic Acid (Folic Acid 1 Mg Tab) 1 mg PO QAM [facility] Stop: 06/17/22 08:59 Last Admin: 05/21/22 09:30 Dose: Not Given Gabapentin (Gabapentin 600 Mg Tab) 900 mg PO TID [facility] Stop: 06/17/22 08:59 Last Admin: 05/21/22 14:14 Dose: 900 mg Hydroxyzine HCl (Hydroxyzine Hcl 25 Mg Tab) 50 mg PO HSZ PRN PRN Reason: Insomnia Stop: 06/17/22 01:06 Last Admin: 05/19/22 22:21 Dose: 50 mg Hydroxyzine HCl (Hydroxyzine Hcl 25 Mg Tab) 25 mg PO Q4H PRN PRN Reason: Anxiety Stop: 06/17/22 01:06 Last Admin: 05/21/22 14:51 Dose: 25 mg Lorazepam (Lorazepam 1 Mg Tab) 1 mg PO UD PRN; Protocol PRN Reason: EtOH Withdrawal AWSS Score 6,7 Stop: 06/17/22 01:45 Last Admin: 05/20/22 13:43 Dose: 1 mg Lorazepam (Lorazepam 1 Mg Tab) 3 mg PO ONCE PRN; Protocol PRN Reason: EtOH Withdrawal AWSS Score 10 & above Lorazepam (Lorazepam 1 Mg Tab) 2 mg PO UD PRN; Protocol PRN Reason: EtOH Withdrawal AWSS Score 8,9 Stop: 06/17/22 01:45 Last Admin: 05/20/22 16:31 Dose: 2 mg Magnesium Hydroxide (Magnesium Hydroxide Susp 30 Ml Udc) 30 ml PO DAILY PRN PRN Reason: Constipation Stop: 06/17/22 01:06 Miscellaneous (Estradiol Patch- Order Awaiting Action) 1 each N/A QS NAE Stop: 06/17/22 10:14 Last Admin: 05/21/22 17:38 Dose: Not Given Ondansetron HCl (Ondansetron 2 Mg Od Tab) 2 mg PO Q6H PRN PRN Reason: Nausea Stop: 06/17/22 12:31 Last Admin: 05/21/22 07:45 Dose: 2 mg Pantoprazole Sodium (Pantoprazole 40 Mg Tab) 40 mg PO QAM NAE Stop: 06/17/22 08:59 Last Admin: 05/21/22 09:30 Dose: Not Given Polyethylene Glycol (Polyethylene (Miralax) 17 Gm Pack) 17 gm PO DAILY NAE Stop: 06/19/22 17:14 Last Admin: 05/21/22 17:38 Dose: Not Given Sodium Chloride (Sodium Chloride 0.65% Na Soln 45 Ml ([place])) 1 - 2 sprays NA PRN PRN PRN Reason: Nasal Dryness/Congestion Stop: 06/17/22 01:06 Thiamine HCl (Thiamine Hcl 100 Mg Tab) 100 mg PO QAM NAE Stop: 06/17/22 08:59 Last Admin: 05/21/22 09:30 Dose: Not Given Mental Health & Subst Abuse Tx Psychiatrist Name of Psychiatrist: Dionne (WILL NEED APPT. SCHEDULED) Psychiatrist's Psychiatric Appointment Comment: [address] [place], [place] Therapist Name of Therapist: Katja (WILL MAKE REFERRAL FOR IOP) Therapist's Therapy Appointment Comment: [address], [address], [place], [place] Post Discharge Appointments Primary Care Physician Name Of Family Doctor: Valerio Hoffmann (WILL NEED FOLLOW UP APPT.) Primary Care Provider Appointment Comment: [facility] office Contact Information Discharge Discharge Address: [address] [place] [address] [address] [place] [address]
[2022-05-22] MEDS: PANTOprazole 40 MG TAB PO SCH (08:39)
[2022-05-22] MEDS: DOCUSATE SODIUM 100 MG CAP PO SCH ×2 (08:39→21:11)
[2022-05-22] MEDS: FOLIC ACID 1 MG TAB PO SCH (08:39)
[2022-05-22] MEDS: POLYETHYLENE (MIRALAX) 17 GM PACK PO SCH (08:39)
[2022-05-22] MEDS: GABAPENTIN 600 MG TAB PO SCH ×3 (08:39→21:11)
[2022-05-22] MEDS: THIAMINE HCL 100 MG TAB PO SCH (08:40)
[2022-05-22] MEDS: hydrOXYzine HCl 25 MG TAB PO PRN ×3 (08:42→21:11)
[2022-05-22] MEDS ORDERED: ESTRADIOL 0.05 MG/24HRS TDSY TD SCH (11:00)
--- NOTE | 2022-05-22 17:05 | Psychiatric Progress Note ---
Date of Service May 22, 2022 Impression / Recommendations Impression The patient is a 31 year old with a history of depression, anxiety, alcohol use, and BPAD who was admitted for worsening depression and SI with plan of drowning herself. Diagnostically consistent with unspecified depression-MDD versus alcohol-induced depression as well as RAFA with panic attacks and alcohol use disorder. The patient is deemed unstable and requires psychiatric hospitalization for diagnostic clarification, safety and stabilization, medication management and development of further coping skills. 05/22/22: Continues to have severe depression with intermittent suicidal ideation and anxiety. Had family meeting. Will start Wellbutrin SR tomorrow morning for depression-reviewed risks/benefits/alternatives and side effects including but not limited to reduce seizure threshold, especially in setting of recent alcohol withdrawal, potential to increase anxiety, HR/BP elevation potential and she wants to start this for depression. Reviewed MAT options for alcohol use, given elevated LFTs she is most interested in possible outpatient trial of acamprosate as not available on hospital formulary. (1) Depression with suicidal ideation: (2) Recurrent severe major depressive disorder with anxiety: (3) Generalized anxiety disorder with panic attacks: (4) Alcohol use disorder, severe, dependence: (5) Fibromyalgia: (6) Transaminitis: (7) DMII (diabetes mellitus, type 2): Plan 05/22/22: Start Wellbutrin SR 100mg qd. Consider option for acamprosate. 05/21/22: Continuing with AWSS. May attempt to start Wellbutrin tomorrow if vitals remain stable and no scoring overnight. 05/20/22: Continues to score on AWSS. Recheck LFTs tomorrow. 05/19/22: Discontinue Pristiq. Continue with AWSS. 05/18/22: The patient was admitted to the [facility] ([facility]) on q15 min checks (behavioral with suicide precautions) for safety. The patient will participate in group, recreational, and milieu therapies and will be offered additional individual and family sessions as clinically appropriate. -AWSS with thiamine and folic acid -Continue with prior to admission gabapentin and Pristiq -Consider trial of Wellbutrin once no longer scoring on AWSS, given risk for further lowering seizure threshold -Consider naltrexone as LFTs improve Inventory Assets Strengths: employed, good supports, motivated to seek treatment, has outpatient psych provider Needs: additional coping skills, additional outpatient support, avoidance of alcohol, consideration for medication adjustment Suicide Risk Level Suicide Risk Level: High-Moderate (q15 min suicide checks) Suicide Risk Level Comments: High-Moderate given depression with SI but feels safe here and able to safety contract to alert staff should she feel unsafe or should SI intensity or worsen or she feel unable to remain safe. Risk Factors Assessment : Yes Do You Have Access To A Gun?: No Mental Health Diagnoses: Yes Substance Use Disorders: Yes Previous Attempt: No Family History of Suicide: No Previous Psychiatric Hospitalization: Yes Hopelessness: Yes Protective Factors Assessment Employed: Yes ([employer]) Stable Relationships: Yes Supportive Family: Yes Good Rapport with Provider: Yes Interval History Identifying Information ZEYAD CALLAWAY is a 31-year-old F who currently lives in [place] with her sister and niece, has a history of depression, anxiety, BPAD, and alcohol use disorder and was admitted on 05/18/22 00:25 on a 201 voluntary commitment for worsening depression and SI with plan. Chief Complaint "I have a lot of anxiety today". Review of Systems Sleep Information Total Hours of Sleep: 6.5 Sleep Comments: admitted around 0100 Meal Information Percent Meal Consumed - Breakfast: 90 Percent Meal Consumed - Lunch: 100 Percent Meal Consumed - Dinner: 95 Nutrition Comment: nausea Subjective Subjective Patient was seen & assessed and interval progress reviewed with treatment team nursing and social work. Continues to have a lot of anxiety, using Vistaril which is somewhat helpful. Has rash on her legs with open sores which she notes she has experienced many times in the past and has been seen by dermatology, possible link to ongoing outpt workup for autoimmune condition. Discussed option for benadryl topic cream which she'd like to try. Having bowel movements with addition of miralax. Has not scored on AWSS today. Becomes tearful in discussing her mood but feels SI is lessening. Physical Exam Psychiatric Orientation: alert and oriented x 3 Apperance: appropriately dressed and appropriately groomed Eye Contact: good eye contact Motor Behavior: no abnormal motor movements Speech: normal rate/rhythm/volume of speech Affect: + anxious affect and + tearful affect Mood: + depressed mood and + anxious mood Thought Process: goal directed thought process Thought Content: reality based without delusions Suicidal Thoughts: denies suicidal plan and denies suicidal intent; + reports suicidal thoughts (ongoing SI but no plan since admission, feels safe here ) Homicidal Thoughts: denies homicidal thoughts Hallucinations: no auditory hallucinations and no visual hallucinations Cognition: recent memory grossly intact, remote memory grossly intact, attention grossly intact and language grossly intact Estimated Intelligence: consistent with education level Insight: + limited insight Judgement: + limited judgement Vital Signs (Past 24 Hours) Last Vital Signs Temp 36.4 C L 05/22/22 13:53 Pulse 100 H 05/22/22 13:53 Resp 14 05/22/22 13:53 BP 131/86 05/22/22 13:53 Pulse Ox 100 05/22/22 13:53 O2 Del Method 05/22/22 13:53 Results & Data ([facility]) Laboratory Results Laboratory Results - last 24 hr 05/22/22 06:38 POC Glucose 93 Current Inpatient Medications Current Inpatient Medications: Current Inpatient Medications Al Hydrox/Mg Hydrox/Simethicone (Aluminum/Magnesium Susp 30 Ml Udc) 30 ml PO Q4H PRN PRN Reason: GI Upset Stop: 06/17/22 01:06 Last Admin: 05/18/22 10:14 Dose: 30 ml Docusate Sodium (Docusate Sodium 100 Mg Cap) 100 mg PO BID [facility] Stop: 06/19/22 20:59 Last Admin: 05/22/22 08:39 Dose: 100 mg Dulaglutide (Dulaglutide 1.5 Mg/0.5 Ml Pen) 1.5 mg SQ Mo@0900 [facility] Stop: 06/19/22 18:29 Last Admin: 05/20/22 21:02 Dose: 1.5 mg Estradiol (Estradiol 0.05 Mg/24hrs Tdsy) 0.05 mg TD MoWe@0900 [facility] Stop: 06/21/22 10:59 Last Admin: 05/22/22 11:49 Dose: 0.05 mg Famotidine (Famotidine 20 Mg Tab) 20 mg PO BID PRN PRN Reason: dyspepsia Stop: 06/17/22 08:17 Folic Acid (Folic Acid 1 Mg Tab) 1 mg PO QAM [facility] Stop: 06/17/22 08:59 Last Admin: 05/22/22 08:39 Dose: 1 mg Gabapentin (Gabapentin 600 Mg Tab) 900 mg PO TID [facility] Stop: 06/17/22 08:59 Last Admin: 05/22/22 13:44 Dose: 900 mg Hydroxyzine HCl (Hydroxyzine Hcl 25 Mg Tab) 50 mg PO HSZ PRN PRN Reason: Insomnia Stop: 06/17/22 01:06 Last Admin: 05/21/22 22:18 Dose: 50 mg Hydroxyzine HCl (Hydroxyzine Hcl 25 Mg Tab) 25 mg PO Q4H PRN PRN Reason: Anxiety Stop: 06/17/22 01:06 Last Admin: 05/22/22 14:45 Dose: 25 mg Lorazepam (Lorazepam 1 Mg Tab) 1 mg PO UD PRN; Protocol PRN Reason: EtOH Withdrawal AWSS Score 6,7 Stop: 06/17/22 01:45 Last Admin: 05/20/22 13:43 Dose: 1 mg Lorazepam (Lorazepam 1 Mg Tab) 3 mg PO ONCE PRN; Protocol PRN Reason: EtOH Withdrawal AWSS Score 10 & above Lorazepam (Lorazepam 1 Mg Tab) 2 mg PO UD PRN; Protocol PRN Reason: EtOH Withdrawal AWSS Score 8,9 Stop: 06/17/22 01:45 Last Admin: 05/20/22 16:31 Dose: 2 mg Magnesium Hydroxide (Magnesium Hydroxide Susp 30 Ml Udc) 30 ml PO DAILY PRN PRN Reason: Constipation Stop: 06/17/22 01:06 Ondansetron HCl (Ondansetron 2 Mg Od Tab) 2 mg PO Q6H PRN PRN Reason: Nausea Stop: 06/17/22 12:31 Last Admin: 05/21/22 18:34 Dose: 2 mg Pantoprazole Sodium (Pantoprazole 40 Mg Tab) 40 mg PO QAM NAE Stop: 06/17/22 08:59 Last Admin: 05/22/22 08:39 Dose: 40 mg Polyethylene Glycol (Polyethylene (Miralax) 17 Gm Pack) 17 gm PO DAILY NAE Stop: 06/19/22 17:14 Last Admin: 05/22/22 08:39 Dose: 17 gm Sodium Chloride (Sodium Chloride 0.65% Na Soln 45 Ml ([place])) 1 - 2 sprays NA PRN PRN PRN Reason: Nasal Dryness/Congestion Stop: 06/17/22 01:06 Thiamine HCl (Thiamine Hcl 100 Mg Tab) 100 mg PO QAM NAE Stop: 06/17/22 08:59 Last Admin: 05/22/22 08:40 Dose: 100 mg Mental Health & Subst Abuse Tx Psychiatrist Name of Psychiatrist: Dionne Chung Psychiatrist's Date of Appointment with Psychiatrist: 06/06/22 Time of Appointment with Psychiatrist: 10:40 AM Psychiatric Appointment Comment: [address] [place], [place] Therapist Name of Therapist: Katja Kennedy Therapist's Date of Therapist Appointment: 05/28/22 Time of Therapist Appointment: 11:30 AM Therapy Appointment Comment: [address] [place] [address] [address], [place], [place] Post Discharge Appointments Primary Care Physician Name Of Family Doctor: Valerio Hoffmann - Dr. Cedeno Primary Care Date of Appointment with PCP: 05/30/22 Time of Appointment with PCP: Arrive at 11:05 AM, appointment at 11:20 AM Provider Appointment Comment[facility] [address] [place] [address] Contact Information Discharge Discharge Address: [address] [place] [address] [address], [place] [address]
[2022-05-23] MEDS: PANTOprazole 40 MG TAB PO SCH (08:55)
[2022-05-23] MEDS: THIAMINE HCL 100 MG TAB PO SCH (08:55)
[2022-05-23] MEDS: DOCUSATE SODIUM 100 MG CAP PO SCH ×2 (08:55→20:39)
[2022-05-23] MEDS: FOLIC ACID 1 MG TAB PO SCH (08:55)
[2022-05-23] MEDS: GABAPENTIN 600 MG TAB PO SCH ×3 (08:55→20:39)
[2022-05-23] MEDS ORDERED: buPROPion SR 100 MG TABCR PO SCH (09:00)
[2022-05-23] MEDS: POLYETHYLENE (MIRALAX) 17 GM PACK PO SCH (09:02)
[2022-05-23] MEDS: hydrOXYzine HCl 25 MG TAB PO PRN ×2 (09:53→20:35)
--- NOTE | 2022-05-23 16:02 | Psychiatric Progress Note ---
Date of Service May 23, 2022 Impression / Recommendations Impression The patient is a 31 year old with a history of depression, anxiety, alcohol use, and BPAD who was admitted for worsening depression and SI with plan of drowning herself. Diagnostically consistent with unspecified depression-MDD versus alcohol-induced depression as well as RAFA with panic attacks and alcohol use disorder. The patient is deemed unstable and requires psychiatric hospitalization for diagnostic clarification, safety and stabilization, medication management and development of further coping skills. 05/23/22: No longer scoring on AWSS so will discontinue. Mood has improved significantly today with start of Wellbutrin and anxiety lessening. Future- oriented about plans for work transition, possible return to school eventually and wanting additional substance use resources such as IOP she could attend after work and discussed AA/ meeting options. She consents to transition to Wellbutrin XL. (1) Depression with suicidal ideation: (2) Recurrent severe major depressive disorder with anxiety: (3) Generalized anxiety disorder with panic attacks: (4) Alcohol use disorder, severe, dependence: (5) Fibromyalgia: (6) Transaminitis: (7) DMII (diabetes mellitus, type 2): Plan 05/23/22: Switch to WEllbutrin XL 150mg qd. 05/22/22: Start Wellbutrin SR 100mg qd. Consider option for acamprosate. 05/21/22: Continuing with AWSS. May attempt to start Wellbutrin tomorrow if vitals remain stable and no scoring overnight. 05/20/22: Continues to score on AWSS. Recheck LFTs tomorrow. 05/19/22: Discontinue Pristiq. Continue with AWSS. 05/18/22: The patient was admitted to the [facility] ([facility]) on q15 min checks (behavioral with suicide precautions) for safety. The patient will participate in group, recreational, and milieu therapies and will be offered additional individual and family sessions as clinically appropriate. -AWSS with thiamine and folic acid -Continue with prior to admission gabapentin and Pristiq -Consider trial of Wellbutrin once no longer scoring on AWSS, given risk for further lowering seizure threshold -Consider naltrexone as LFTs improve Inventory Assets Strengths: employed, good supports, motivated to seek treatment, has outpatient psych provider Needs: additional coping skills, additional outpatient support, avoidance of alcohol, consideration for medication adjustment Suicide Risk Level Suicide Risk Level: High-Moderate (q15 min suicide checks) Suicide Risk Level Comments: High-Moderate given depression with SI but feels safe here and able to safety contract to alert staff should she feel unsafe or should SI intensity or worsen or she feel unable to remain safe. Risk Factors Assessment : Yes Do You Have Access To A Gun?: No Mental Health Diagnoses: Yes Substance Use Disorders: Yes Previous Attempt: No Family History of Suicide: No Previous Psychiatric Hospitalization: Yes Hopelessness: Yes Protective Factors Assessment Employed: Yes ([employer] Stable Relationships: Yes Supportive Family: Yes Good Rapport with Provider: Yes Interval History Identifying Information ZEYAD CALLAWAY is a 31-year-old F who currently lives in [place] with her sister and niece, has a history of depression, anxiety, BPAD, and alcohol use disorder and was admitted on 05/18/22 00:25 on a 201 voluntary commitment for worsening depression and SI with plan. Chief Complaint "I'm good today". Review of Systems Sleep Information Total Hours of Sleep: 7.75 Sleep Comments: admitted around 0100 Meal Information Percent Meal Consumed - Breakfast: 50 Percent Meal Consumed - Lunch: 80 Percent Meal Consumed - Dinner: 50 Nutrition Comment: nausea Subjective Subjective Patient was seen & assessed and interval progress reviewed with treatment team nursing and social work. No longer scoring on AWSS and vitals have been stable will discontinue. Had HSU this morning, caffeine with lunch helped. Denies SI today. Feels more energy and mood improvement with addition of Wellbutrin. No side effects. Anxiety is less today. Feels more hopeful. Reviewed potential barriers to sobreity and potential addition supports in outpt setting. She's interested in an IOP after work, attending AA and working to find a different job. Physical Exam Psychiatric Orientation: alert and oriented x 3 Apperance: appropriately dressed and appropriately groomed Eye Contact: good eye contact Motor Behavior: no abnormal motor movements Speech: normal rate/rhythm/volume of speech Affect: + anxious affect (but also smiling ) Mood: + anxious mood Thought Process: goal directed thought process Thought Content: reality based without delusions Suicidal Thoughts: denies suicidal thoughts Homicidal Thoughts: denies homicidal thoughts Hallucinations: no auditory hallucinations and no visual hallucinations Cognition: recent memory grossly intact, remote memory grossly intact, attention grossly intact and language grossly intact Estimated Intelligence: consistent with education level Insight: + fair insight Judgement: + fair judgement Vital Signs (Past 24 Hours) Last Vital Signs Temp 36.5 C 05/23/22 14:00 Pulse 89 05/23/22 14:00 Resp 14 05/23/22 14:00 BP 118/81 05/23/22 14:00 Pulse Ox 100 05/23/22 14:00 O2 Del Method 05/23/22 14:00 Results & Data ([facility]) Laboratory Results Laboratory Results - last 24 hr 05/23/22 06:23 POC Glucose 106 H Current Inpatient Medications Current Inpatient Medications: Current Inpatient Medications Al Hydrox/Mg Hydrox/Simethicone (Aluminum/Magnesium Susp 30 Ml Udc) 30 ml PO Q4H PRN PRN Reason: GI Upset Stop: 06/17/22 01:06 Last Admin: 05/18/22 10:14 Dose: 30 ml Bupropion HCl (Bupropion Sr 100 Mg Tabcr) 100 mg PO QDB [facility] Stop: 06/22/22 08:59 Last Admin: 05/23/22 08:54 Dose: 100 mg Docusate Sodium (Docusate Sodium 100 Mg Cap) 100 mg PO BID [facility] Stop: 06/19/22 20:59 Last Admin: 05/23/22 08:55 Dose: 100 mg Dulaglutide (Dulaglutide 1.5 Mg/0.5 Ml Pen) 1.5 mg SQ Mo@0900 [facility] Stop: 06/19/22 18:29 Last Admin: 05/20/22 21:02 Dose: 1.5 mg Estradiol (Estradiol 0.05 Mg/24hrs Tdsy) 0.05 mg TD MoWe@0900 [facility] Stop: 06/21/22 10:59 Last Admin: 05/22/22 11:49 Dose: 0.05 mg Famotidine (Famotidine 20 Mg Tab) 20 mg PO BID PRN PRN Reason: dyspepsia Stop: 06/17/22 08:17 Folic Acid (Folic Acid 1 Mg Tab) 1 mg PO QAM [facility] Stop: 06/17/22 08:59 Last Admin: 05/23/22 08:55 Dose: 1 mg Gabapentin (Gabapentin 600 Mg Tab) 900 mg PO TID [facility] Stop: 06/17/22 08:59 Last Admin: 05/23/22 13:47 Dose: 900 mg Hydroxyzine HCl (Hydroxyzine Hcl 25 Mg Tab) 50 mg PO HSZ PRN PRN Reason: Insomnia Stop: 06/17/22 01:06 Last Admin: 05/22/22 21:11 Dose: 50 mg Hydroxyzine HCl (Hydroxyzine Hcl 25 Mg Tab) 25 mg PO Q4H PRN PRN Reason: Anxiety Stop: 06/17/22 01:06 Last Admin: 05/23/22 09:53 Dose: 25 mg Lorazepam (Lorazepam 1 Mg Tab) 1 mg PO UD PRN; Protocol PRN Reason: EtOH Withdrawal AWSS Score 6,7 Stop: 06/17/22 01:45 Last Admin: 05/20/22 13:43 Dose: 1 mg Lorazepam (Lorazepam 1 Mg Tab) 3 mg PO ONCE PRN; Protocol PRN Reason: EtOH Withdrawal AWSS Score 10 & above Lorazepam (Lorazepam 1 Mg Tab) 2 mg PO UD PRN; Protocol PRN Reason: EtOH Withdrawal AWSS Score 8,9 Stop: 06/17/22 01:45 Last Admin: 05/20/22 16:31 Dose: 2 mg Magnesium Hydroxide (Magnesium Hydroxide Susp 30 Ml Udc) 30 ml PO DAILY PRN PRN Reason: Constipation Stop: 06/17/22 01:06 Ondansetron HCl (Ondansetron 2 Mg Od Tab) 2 mg PO Q6H PRN PRN Reason: Nausea Stop: 06/17/22 12:31 Last Admin: 05/21/22 18:34 Dose: 2 mg Pantoprazole Sodium (Pantoprazole 40 Mg Tab) 40 mg PO QAM NAE Stop: 06/17/22 08:59 Last Admin: 05/23/22 08:55 Dose: 40 mg Polyethylene Glycol (Polyethylene (Miralax) 17 Gm Pack) 17 gm PO DAILY NAE Stop: 06/19/22 17:14 Last Admin: 05/23/22 09:02 Dose: Not Given Sodium Chloride (Sodium Chloride 0.65% Na Soln 45 Ml ([place])) 1 - 2 sprays NA PRN PRN PRN Reason: Nasal Dryness/Congestion Stop: 06/17/22 01:06 Thiamine HCl (Thiamine Hcl 100 Mg Tab) 100 mg PO QAM NAE Stop: 06/17/22 08:59 Last Admin: 05/23/22 08:55 Dose: 100 mg Zinc Acetate/Diphenhydramine (Diphenhydramine 2%/Zinc 0.1% Cream 28gm Tube) 1 appln EXT BID PRN PRN Reason: leg rash Stop: 06/21/22 17:04 Last Admin: 05/23/22 08:54 Dose: 1 appln Mental Health & Subst Abuse Tx Psychiatrist Name of Psychiatrist: Dionne Chung Psychiatrist's Date of Appointment with Psychiatrist: 06/06/22 Time of Appointment with Psychiatrist: 10:40 AM Psychiatric Appointment Comment: [address] [place], [place] Therapist Name of Therapist: Katja Kennedy Therapist's Date of Therapist Appointment: 05/28/22 Time of Therapist Appointment: 11:30 AM Therapy Appointment Comment: [address], [address], [place], [place] Post Discharge Appointments Primary Care Physician Name Of Family Doctor: Valerio Hoffmann - Dr. Cedeno [facility] Date of Appointment with PCP: 05/30/22 Time of Appointment with PCP: Arrive at 11:05 AM, appointment at 11:20 AM [facility] [id number] Contact Information Discharge Discharge Address: [address] [place], [place] [address], [place] [address]
[2022-05-24] MEDS: DOCUSATE SODIUM 100 MG CAP PO SCH (08:42)
[2022-05-24] MEDS: GABAPENTIN 600 MG TAB PO SCH ×2 (08:42→12:52)
[2022-05-24] MEDS: FOLIC ACID 1 MG TAB PO SCH (08:42)
[2022-05-24] MEDS: THIAMINE HCL 100 MG TAB PO SCH (08:43)
[2022-05-24] MEDS: POLYETHYLENE (MIRALAX) 17 GM PACK PO SCH (08:43)
[2022-05-24] MEDS: PANTOprazole 40 MG TAB PO SCH (08:43)
[2022-05-24] MEDS ORDERED: buPROPion XL 150 MG TABCR PO SCH (09:00)
--- NOTE | 2022-05-24 11:48 | Discharge Summary ---
Date of Service May 24, 2022 History of Present Illness Aparna presents for psychiatric admission for worsening depression and SI with plan of drowning herself and was considering driving to a local stream to this end. She was intoxicated on arrival to the ED, though functioning fairly well, with initial level of 273 ethyl alcohol. She has been coping with severe depression and anxiety by drinking alcohol about 0.5 bottle of liquor daily with increased use in the last few weeks. She has no history of complicated withdrawals. She has been feeling increasingly depressed and anxious for the last few weeks and isn't sure why. She notes she had an argument with her sister, but it was over a small thing, and feels like her medication isn't working. Her [facility] [place] provider increased her Pristiq dose from 50mg to 100mg about 1 month ago but she hasn't noticed any benefit so far. She continues with low energy, poor concentration, high anxiety and hopelessness and helplessness. She endorses ongoing SI without plan but notes "I just want to fade away". Reviewed and confirmed recent history per ED case management note from 05/17/22: "Aparna presented to the ED via BLS from her work at [employer]. Per Aparna, she ended her shift there today and didn't want to go home so she was just sitting in her car. A concerned citizen called the police regarding this. Aparna admitted to suicidal ideations and stated that she has thoughts of drowning herself. Aparna is apologetic throughout assessment and repeatedly devalues herself and her symptoms as stupid and silly. She states approximately two weeks ago she [place] but did not do anything further to attempt suicide. Aparna follows with [facility] for psychiatry and medication management and admits that she missed her last appointment and needs to reschedule but has been too depressed to do so. She reports medication compliance. She describes "feeling so down and so anxious" all of the time. She picks and scratches at her skin when feeling very anxious but denies it is with a goal of injuring herself. She is noted with scabs to her arms. She describes depressive symptoms of sadness, crying spells, self-devaluation, decreased concentration and decreased sleep. She states she hasn't gotten great sleep for the past few days and has laid in bed for over 24 hours without being able to fall asleep. She describes severe anxiety and panic attacks that give her tunnel vision and require her to lay down to get through them." She is currently prescribed psychiatric medications of Pristiq and Gabapentin. Psychiatric ROS notable for no current nor history of symptoms of psychosis, PTSD, OCD nor eating disorder. She denies any history of efra, thinks the BPAD diagnosis in the past was due to a family history of this, but has been on an SNRI without concurrent mood stabilizer without breakthrough efra. Physical Exam Vital Signs (Past 24 Hours) Last Vital Signs Temp 36.5 C 05/24/22 11:15 Pulse 89 05/24/22 11:15 Resp 16 05/24/22 11:15 BP 108/70 05/24/22 11:15 Pulse Ox 100 05/24/22 11:15 O2 Del Method 05/23/22 14:00 See admission H&P and DOD summary. Principal Diagnosis Major Depressive Disorder with anxious distress, Alcohol Use Disorder Psychiatric Data See daily stay summary. In short, patient was engaged with the social/therapeutic milieu of the unit, safety was maintained and the patient was cooperative with care. Medication changes included discontinuation of Pristiq and initiation of Wellbutrin and Vistaril prn for anxiety/insomnia and they tolerated this well. Acamprosate is not available on the hospital formulary but was sent for her to start in the outpatient setting at 333mg TID for alcohol use disorder given that her LFTs remain elevated so naltrexone was not felt to be a safe option. Acamprosate can be increased to 666mg TID if she continues to tolerate this well. Reviewed risks/benefits/alternatives and she consented to starting it and understands potential side effects including but not limited to GI symptoms and SI and need to discontinue should SI occur. She plans to follow- up with her PCP for ongoing workup of possible autoimmune condition that may be additionally impacting her LFTs as well as potentially contributing to rashes she develops on her legs. A family session was held and safety plan was completed prior to discharge. She plans to avoid alcohol use and is motivated to attend and [facility]. She actively and insightfully participated in safety planning and in discussions about ways to seek support and recognizing warning signs and utilizing coping skills. Reviewed mobile apps that could be used for additional ways to have their safety plan and contacts easily available should thoughts of SI re-emerge in the future. Reviewed importance of seeking emergency care should SI intensify , worsen or should they feel unsafe in the future which they agree to do. On the day of discharge she stated her mood was "I feel really good" and remained future-oriented including seeing her dog, spending time with family and working on finding a new job/potentially returning to school in the future and engaging in aftercare appointments for psychiatry, therapy and IOP. Day of Discharge Assessment Today the patient voices readiness for discharge. They note improvement in mood and anxiety. They deny thoughts of harm to self or others. Thoughts are organized and they are clinically improved from admission. There is no evidence of psychosis. They improved in the hospital with support and medication adjustments. They agree to take medications as prescribed and keep follow-up appointments. At the time of the discharge they are deemed to be stable and appropriate for outpatient level of care. They are not deemed to be at imminent risk of harm to self or others. They are aware of emergency and crisis services. Knows to call 911 or go to nearest emergency care center if in a crisis which cannot be handled as an outpatient. Transition of Care Transition Of Care Record: was reviewed with the patient Advance Directives Advance Directives Information Provided: Yes Advance Directives: No Mental Health Advance Directive: No Advance Directives on File: No Living Will: No Power of General Warehouse Associate: No Advance Directives Reason:: Declines as Mental Health Visit. Suicide Risk Level Suicide Risk Level Comments: Acute risk is low given improvement in mood and denial of SI, lack of access to lethal means, plan to avoid substance use, improvement in sleep and hopefulness. Chronic risk is moderate given some non-modifiable risk factors, psychiatric co-morbid diagnoses, prior psychiatric hospitalizations, mood disorder but also with protective factors. Counseled on ways to reduce acute and chronic risk including avoiding alcohol use, engaging with outpatient providers, using safety plan if needed, utilizing supports, taking medication, and using coping skills. Modifiable risk factors of SI, alcohol use and depression were addressed during hospitalization through development of new coping skills, family meeting, safety planning, and medication adjustments. Risk Factors Assessment : Yes Do You Have Access To A Gun?: No Mental Health Diagnoses: Yes Substance Use Disorders: Yes Previous Attempt: No Family History of Suicide: No Previous Psychiatric Hospitalization: Yes Hopelessness: No Protective Factors Assessment Employed: Yes ([employer]) Stable Relationships: Yes Supportive Family: Yes Good Rapport with Provider: Yes Tobacco Cessation at Discharge Tobacco Cessation Medication Prescribed at Discharge: Not Applicable/Non-Smoker Discharge Data Lab Results 05/17/22 05/17/22 05/17/22 14:20 14:20 15:56 WBC 8.45 RBC 5.24 H Hgb 16.3 H Hct 47.4 H MCV 90.5 MCH 31.1 MCHC 34.4 RDW Std Deviation 44.4 RDW Coeff of Piotr 13.6 Plt Count 358 MPV 9.7 Immature Gran % (Auto) 0.2 Neut % (Auto) 44.9 Lymph % (Auto) 45.1 [place] % (Auto) 8.0 Eos % (Auto) 0.9 Baso % (Auto) 0.9 Neut # (Auto) 3.78 Lymph # (Auto) 3.81 H [place] # (Auto) 0.68 Eos # (Auto) 0.08 Baso # (Auto) 0.08 Immature Gran # (Auto) 0.02 Sodium Potassium Chloride Carbon Dioxide Anion Gap BUN Creatinine Est Cr Clr Drug Dosing Est GFR ( Amer) Est GFR (Non-Af Amer) BUN/Creatinine Ratio Glucose POC Glucose Calcium Total Bilirubin AST ALT Alkaline Phosphatase Total Protein Albumin Globulin Albumin/Globulin Ratio TSH Urine Color Yellow Urine Appearance Clear Urine pH 7.0 Ur Specific [place] 1.004 Urine Protein Negative Urine Glucose (UA) Negative Urine Ketones Negative Urine Blood Negative Urine Nitrite Negative Urine Bilirubin Negative Urine Urobilinogen Negative Ur Leukocyte Esterase Negative Salicylates Urine Opiates Screen Neg Ur Methadone, Qual Neg Acetaminophen Urine Barbiturates Neg Ur Phencyclidine (PCP) Neg U Amphetamin/Meth Scrn Neg MDMA (Ecstasy) Screen Neg U Benzodiazepines Scrn Neg Ur Cocaine Metabolite Neg U Marijuana (THC) Screen Neg Ethyl Alcohol mg/dL SARS-CoV-2, RNA, NAAT 05/17/22 05/17/22 05/17/22 15:56 15:56 15:56 WBC RBC Hgb Hct MCV MCH MCHC RDW Std Deviation RDW Coeff of Piotr Plt Count MPV Immature Gran % (Auto) Neut % (Auto) Lymph % (Auto) [place] % (Auto) Eos % (Auto) Baso % (Auto) Neut # (Auto) Lymph # (Auto) [place] # (Auto) Eos # (Auto) Baso # (Auto) Immature Gran # (Auto) Sodium 144 Potassium 3.8 Chloride 106 Carbon Dioxide 29 Anion Gap 9 BUN 6 Creatinine 0.69 Est Cr Clr Drug Dosing 117.4 Est GFR ( Amer) 133.5 Est GFR (Non-Af Amer) 115.2 BUN/Creatinine Ratio 8.7 L Glucose 106 H POC Glucose Calcium 9.5 Total Bilirubin 0.4 AST 230 H ALT 206 H Alkaline Phosphatase 89 Total Protein 7.9 Albumin 5.0 Globulin 2.9 Albumin/Globulin Ratio 1.7 TSH 0.740 Urine Color Urine Appearance Urine pH Ur Specific [place] Urine Protein Urine Glucose (UA) Urine Ketones Urine Blood Urine Nitrite Urine Bilirubin Urine Urobilinogen Ur Leukocyte Esterase Salicylates < 3.0 L Urine Opiates Screen Ur Methadone, Qual Acetaminophen < 3 L Urine Barbiturates Ur Phencyclidine (PCP) U Amphetamin/Meth Scrn MDMA (Ecstasy) Screen U Benzodiazepines Scrn Ur Cocaine Metabolite U Marijuana (THC) Screen Ethyl Alcohol mg/dL SARS-CoV-2, RNA, NAAT 05/17/22 05/17/22 05/18/22 15:56 19:51 09:40 WBC RBC Hgb Hct MCV MCH MCHC RDW Std Deviation RDW Coeff of Piotr Plt Count MPV Immature Gran % (Auto) Neut % (Auto) Lymph % (Auto) [place] % (Auto) Eos % (Auto) Baso % (Auto) Neut # (Auto) Lymph # (Auto) [place] # (Auto) Eos # (Auto) Baso # (Auto) Immature Gran # (Auto) Sodium Potassium Chloride Carbon Dioxide Anion Gap BUN Creatinine Est Cr Clr Drug Dosing Est GFR ( Amer) Est GFR (Non-Af Amer) BUN/Creatinine Ratio Glucose POC Glucose 115 H Calcium Total Bilirubin AST ALT Alkaline Phosphatase Total Protein Albumin Globulin Albumin/Globulin Ratio TSH Urine Color Urine Appearance Urine pH Ur Specific [place] Urine Protein Urine Glucose (UA) Urine Ketones Urine Blood Urine Nitrite Urine Bilirubin Urine Urobilinogen Ur Leukocyte Esterase Salicylates Urine Opiates Screen Ur Methadone, Qual Acetaminophen Urine Barbiturates Ur Phencyclidine (PCP) U Amphetamin/Meth Scrn MDMA (Ecstasy) Screen U Benzodiazepines Scrn Ur Cocaine Metabolite U Marijuana (THC) Screen Ethyl Alcohol mg/dL 273.8 H SARS-CoV-2, RNA, NAAT NEGATIVE 05/19/22 05/20/22 05/21/22 06:42 06:27 07:33 WBC RBC Hgb Hct MCV MCH MCHC RDW Std Deviation RDW Coeff of Piotr Plt Count MPV Immature Gran % (Auto) Neut % (Auto) Lymph % (Auto) [place] % (Auto) Eos % (Auto) Baso % (Auto) Neut # (Auto) Lymph # (Auto) [place] # (Auto) Eos # (Auto) Baso # (Auto) Immature Gran # (Auto) Sodium Potassium Chloride Carbon Dioxide Anion Gap BUN Creatinine Est Cr Clr Drug Dosing Est GFR ( Amer) Est GFR (Non-Af Amer) BUN/Creatinine Ratio Glucose POC Glucose 123 H 127 H 118 H Calcium Total Bilirubin AST ALT Alkaline Phosphatase Total Protein Albumin Globulin Albumin/Globulin Ratio TSH Urine Color Urine Appearance Urine pH Ur Specific [place] Urine Protein Urine Glucose (UA) Urine Ketones Urine Blood Urine Nitrite Urine Bilirubin Urine Urobilinogen Ur Leukocyte Esterase Salicylates Urine Opiates Screen Ur Methadone, Qual Acetaminophen Urine Barbiturates Ur Phencyclidine (PCP) U Amphetamin/Meth Scrn MDMA (Ecstasy) Screen U Benzodiazepines Scrn Ur Cocaine Metabolite U Marijuana (THC) Screen Ethyl Alcohol mg/dL SARS-CoV-2, RNA, NAAT 05/21/22 05/22/22 05/23/22 07:41 06:38 06:23 WBC RBC Hgb Hct MCV MCH MCHC RDW Std Deviation RDW Coeff of Piotr Plt Count MPV Immature Gran % (Auto) Neut % (Auto) Lymph % (Auto) [place] % (Auto) Eos % (Auto) Baso % (Auto) Neut # (Auto) Lymph # (Auto) [place] # (Auto) Eos # (Auto) Baso # (Auto) Immature Gran # (Auto) Sodium Potassium Chloride Carbon Dioxide Anion Gap BUN Creatinine Est Cr Clr Drug Dosing Est GFR ( Amer) Est GFR (Non-Af Amer) BUN/Creatinine Ratio Glucose POC Glucose 93 106 H Calcium Total Bilirubin AST 175 H ALT 213 H Alkaline Phosphatase Total Protein Albumin Globulin Albumin/Globulin Ratio TSH Urine Color Urine Appearance Urine pH Ur Specific [place] Urine Protein Urine Glucose (UA) Urine Ketones Urine Blood Urine Nitrite Urine Bilirubin Urine Urobilinogen Ur Leukocyte Esterase Salicylates Urine Opiates Screen Ur Methadone, Qual Acetaminophen Urine Barbiturates Ur Phencyclidine (PCP) U Amphetamin/Meth Scrn MDMA (Ecstasy) Screen U Benzodiazepines Scrn Ur Cocaine Metabolite U Marijuana (THC) Screen Ethyl Alcohol mg/dL SARS-CoV-2, RNA, NAAT 05/24/22 06:53 WBC RBC Hgb Hct MCV MCH MCHC RDW Std Deviation RDW Coeff of Piotr Plt Count MPV Immature Gran % (Auto) Neut % (Auto) Lymph % (Auto) [place] % (Auto) Eos % (Auto) Baso % (Auto) Neut # (Auto) Lymph # (Auto) [place] # (Auto) Eos # (Auto) Baso # (Auto) Immature Gran # (Auto) Sodium Potassium Chloride Carbon Dioxide Anion Gap BUN Creatinine Est Cr Clr Drug Dosing Est GFR ( Amer) Est GFR (Non-Af Amer) BUN/Creatinine Ratio Glucose POC Glucose 107 H Calcium Total Bilirubin AST ALT Alkaline Phosphatase Total Protein Albumin Globulin Albumin/Globulin Ratio TSH Urine Color Urine Appearance Urine pH Ur Specific [place] Urine Protein Urine Glucose (UA) Urine Ketones Urine Blood Urine Nitrite Urine Bilirubin Urine Urobilinogen Ur Leukocyte Esterase Salicylates Urine Opiates Screen Ur Methadone, Qual Acetaminophen Urine Barbiturates Ur Phencyclidine (PCP) U Amphetamin/Meth Scrn MDMA (Ecstasy) Screen U Benzodiazepines Scrn Ur Cocaine Metabolite U Marijuana (THC) Screen Ethyl Alcohol mg/dL SARS-CoV-2, RNA, NAAT Hospital Course (1) Depression with suicidal ideation: (2) Recurrent severe major depressive disorder with anxiety: (3) Generalized anxiety disorder with panic attacks: (4) Alcohol use disorder, severe, dependence: (5) Fibromyalgia: (6) Transaminitis: (7) DMII (diabetes mellitus, type 2): Plan 05/23/22: Switch to Wellbutrin XL 150mg qd. 05/22/22: Start Wellbutrin SR 100mg qd. Consider option for acamprosate. 05/21/22: Continuing with AWSS. May attempt to start Wellbutrin tomorrow if vitals remain stable and no scoring overnight. 05/20/22: Continues to score on AWSS. Recheck LFTs tomorrow. 05/19/22: Discontinue Pristiq. Continue with AWSS. 05/18/22: The [facility] on q15 min checks (behavioral with suicide precautions) for safety. The patient will participate in group, recreational, and milieu therapies and will be offered additional individual and family sessions as clinically appropriate. -AWSS with thiamine and folic acid -Continue with prior to admission gabapentin and Pristiq -Consider trial of Wellbutrin once no longer scoring on AWSS, given risk for further lowering seizure threshold -Consider naltrexone as LFTs improve Mental Health & Subst Abuse Tx Psychiatrist Name of Psychiatrist: Dionne Chung Psychiatrist's Date of Appointment with Psychiatrist: 06/06/22 Time of Appointment with Psychiatrist: 10:40 AM Psychiatric Appointment Comment: [address] [place], [place] Therapist Name of Therapist: Katja Kennedy Therapist's Date of Therapist Appointment: 05/28/22 Time of Therapist Appointment: 11:30 AM Therapy Appointment Comment: [address], [address], [place], [place] Post Discharge Appointments Primary Care Physician Name Of Family Doctor: Valerio Hoffmann - Dr. Cedeno Primary [facility] Date of Appointment with PCP: 05/30/22 Time of Appointment with PCP: Arrive at 11:05 AM, appointment at 11:20 AM Provider Appointment Comment: [address] [place] [address] Smoking Cessation Counseling Tobacco Cessation Medication Prescribed at Discharge: Not Applicable/Non-Smoker Contact Information Discharge Discharge Address: [address] [place] [id number] Discharge Plan Discharge Items Patient Disposition: Home - Self-Care Reason For Visit: UNSPECIFIED MOOD DISORDER Discharge Diagnosis: Major Depressive Disorder with anxious distress, Alcohol Use Disorder Activity: Resume your previous activity Non-emergency contact: Primary Care Provider, Psychiatrist and Therapist Call non-emergency contact if: you have any medication questions and your symptoms worsen Follow-up/Referrals: Simona Lake DO [Primary Care Provider] - Diet: Regular Addtl Attending Provider Instructions: Optional Mobile Apps: -Suicide safety plan -Virtual Hope Box -Panic Provider Relations Advocate SPECIAL CARE INSTRUCTIONS: 1. Follow through with your scheduled aftercare appointments. If unable to keep an appointment, please call to reschedule. 2. Take your medication only as prescribed. Medication should not be changed or stopped without the approval of your doctor. In the event of worsening symptoms or concerns about side effects, contact your doctor immediately. 3. Utilize new healthy coping skills, anger management skills, and stress management skills learned during your hospitalization. Journal feelings and process them with a support person. Identify stressors or situations that may result in relapse, deterioration or inappropriate behaviors and develop a plan to deal with those issues. 4. If your coping skills are ineffective and you are in crisis, contact your outpatient providers for direction. If unable to reach your providers, please call the [facility] CRISIS LINE AT , go to the [facility] walk-in center at [address], [address], [place], or go to the closest Emergency Room. 5. Avoid alcohol and un-prescribed drugs. 6. You have been provided with the Mental Health Advance Directives Pamphlet for your review. 7. Your condition is stable for discharge to outpatient level of care, but recovery is an ongoing process. Ifthoughts to harm yourself or others return, follow the safety plan developed during your stay. Planning for a safe return home includes securing weapons. Our treatment team recommends weaponsbe removed from the home until your outpatient provider reassesses your progress. In rare cases where the items themselvescannot be removed, guns and ammunitionshould be secured separatelyand keys stored by a reliable personoutside of the home. If you were admitted on an involuntary commitment, the police or other legal authorities may be involved in this process. AFTERCARE APPOINTMENTS: * Please call your insurance company prior to your scheduled appointment to confirm your aftercare providers are covered. Take your insurance information to your appointments. WHO TO CALL AND WHEN: Medical Emergencies: For questions or emergencies related to your hospital stay, please contact the Inpatient Behavioral Health Unit at [phone]. A tutoring clinician is on-call 07/04 for the Behavioral Health Unit for emergencies At any time you feel your situation is an emergency, you may also call 911 immediately. Pending Studies at Discharge: No Stand-Alone Forms: [facility] Medications and DC Order Prescriptions: New bupropion HCl 150 mg Tablet Extended Release 24 Hr 150 mg PO QAM 30 Days Qty: 30 0RF hydroxyzine HCl 25 mg Tablet 50 mg PO HSZ PRN (Reason: insomnia) 30 Days Qty: 30 0RF hydroxyzine HCl 25 mg Tablet 25 mg PO BID PRN (Reason: anxiety) 30 Days Qty: 60 0RF acamprosate 333 mg tablet,delayed release (DR/EC) 333 mg PO TID 30 Days Qty: 90 0RF Rx Instructions: administer with breakfast and mid-day and evening meals hydroxyzine HCl 50 mg tablet 50 mg PO HS 30 Days Qty: 30 0RF Continued estradiol 0.05 mg/24 hr patch semiweekly 1 patch topical [id number] Rx Instructions: Friday and Friday famotidine 20 mg Tablet 20 mg PO BID PRN (Reason: dyspepsia) Qty: 30 0RF pantoprazole 40 mg Tablet,Delayed Release (Dr/Ec) 40 mg PO QAM Qty: 30 0RF Trulicity 1.5 mg/0.5 mL pen injector 1.5 mg SUBCUT WK gabapentin 600 mg tablet 900 mg PO TID 30 Days Qty: 135 0RF Discontinued trazodone 50 mg tablet 25 - 300 mg PO HS PRN (Reason: Sleep) desvenlafaxine succinate 100 mg tablet extended release 24 hr 100 mg PO QAM lorazepam 0.5 mg tablet 0.5 mg PO DAILY PRN (Reason: Panic Attack(S)) Discharge Orders: Discharge Order (Routine); Ordered 05/24/22 Ordered By: Anny Calderon Admission Data Admit Date/Time: 05/18/22 00:25 Attending Provider: Anny Calderon Admit Provider: Anny Calderon Primary Care Provider: Simona Lake Other Interventions: Discharge Summary Assessment (RN) Last Done: 05/24/22 12:16 PSY Interdisciplinary Discharge Planning Last Done: 05/24/22 12:17 Coding Level of Care Code 61644 D/C day mgmt > 30 min Diagnoses Depression with suicidal ideation F32.9; R45.851 Recurrent severe major depressive disorder with anxiety F33.2; F41.9 Generalized anxiety disorder with panic attacks F41.1; F41.0 Alcohol use disorder, severe, dependence F10.20 Fibromyalgia M79.7 Transaminitis R74.01 DMII (diabetes mellitus, type 2) E11.9 Time Spent (min) 50
[2022-05-24] MEDS ORDERED: DESTROY THIS MEDICATION ONE (11:50)
== END 2022-05-24 12:54 | disposition home or self-care (01) | DRG 881 ==
LOC: ED 14:11 → 3S 05-18 00:25